=== PATIENT | female | born 1985 | race Caucasian/White ===

== ENCOUNTER → 2017-12-10 15:48 | Outpatient (CLI) | payer BC, SELFPAY | PROVIDERS: Visit Provider Physician Assistant | DX: J02.9 Acute pharyngitis, unspecified (principal) | CPT/HCPCS: 87081 ==

== ENCOUNTER → 2019-03-06 14:29 | Outpatient (CLI) | payer BC, SELFPAY ==
[2019-03-06 11:38] VITALS: BMI 36.1
[2019-03-06 14:32] LABS: Bacteria 0 SEEN /hpf (None Seen); Mucous, Urine 0 SEEN /hpf (<or=2+)
[2019-03-06 14:45] LABS: Glucose, Dipstick Normal (Normal); Ketone-Dipstick 5 mg/dl (Negative); Leukocyte Esterase-Dipstick 500 /ul (Negative); Nitrite-Dipstick Positive (Negative); Occult Blood-Urine 250 /ul (Negative); Protein-Dipstick 30 mg/dl (Negative); Urine Clarity Sl. Cloudy (Clear); Urine Urobilinogen 12 mg/dl (Normal)
[2019-03-06 14:50] LABS: Color, Urine SEE COMMENT BELOW (Yellow); Urine Bilirubin Dipstick 6 mg/dL (Negative)
[2019-03-06 14:52] LABS: Red Blood Cells-Urine > 100 SEEN /hpf (0-5); White Blood Cells 50-100 SEEN /hpf (0-5)
[2019-03-06 14:53] LABS: Squamous Epithelial Cells - UA 5-10 SEEN /hpf (5-10)
== END ==
PROVIDERS: Referring Provider Nurse Practitioner Family; Visit Provider Nurse Practitioner Family
DX: R30.0 Dysuria (principal)
CPT/HCPCS: 81001; 87086; 87088

== ENCOUNTER → 2019-07-03 15:41 | Outpatient (CLI) | payer BC, SELFPAY ==
[2019-03-06 11:38] VITALS: BMI 36.1
--- NOTE | 2019-07-03 15:44 | US_ITS ---
STUDY: THYROID ULTRASOUND REASON FOR EXAM: Female, 34 years old. Abnormal blood work. TECHNIQUE: Ultrasound evaluation of the thyroid was performed with real-time and static modi-scale imaging. COMPARISON: None. FINDINGS: RIGHT LOBE: The right lobe of the thyroid gland measures 4.0 x 1.3 x 1.2 cm. There is a homogeneous echotexture. There are no demonstrated solid, cystic or complex lesions. LEFT LOBE: The left lobe of the thyroid gland measures 4.5 x 1.3 x 2.0 cm. There is a homogeneous echotexture. There are no demonstrated solid, cystic or complex lesions. ISTHMUS: The isthmus measures 0.6 . US/Thyroid IMPRESSION: Normal ultrasound examination of the thyroid. Electronically Signed: Gasper Angulo, at 1:18 EDT Tel , Service support ,
== END ==
PROVIDERS: Family Provider Physician Assistant; PCP Physician Assistant; Referring Provider Nurse Practitioner Adult Health; Visit Provider Nurse Practitioner Adult Health
DX: E04.8 Other specified nontoxic goiter (principal)
CPT/HCPCS: 76536

== ENCOUNTER → 2021-09-22 | Outpatient (CLI) | payer BC, SELFPAY ==
[2021-09-22 10:26] LABS: Bacteria 0 SEEN /hpf (None Seen); Mucous, Urine 0 SEEN /hpf (<or=2+); Red Blood Cells-Urine 0 SEEN /hpf (0-5)
[2021-09-22 10:29] LABS: Color, Urine Amber (Yellow); Glucose, Dipstick Normal (Normal); Ketone-Dipstick Negative (Negative); Leukocyte Esterase-Dipstick 500 /ul (Negative); Nitrite-Dipstick Positive (Negative); Occult Blood-Urine 150 /ul (Negative); Protein-Dipstick 30 mg/dl (Negative); Urine Clarity Sl. Cloudy (Clear); Urine Urobilinogen 8 mg/dl (Normal)
[2021-09-22 10:35] LABS: Urine Bilirubin Dipstick 3 mg/dL (Negative)
[2021-09-22 10:41] LABS: Squamous Epithelial Cells - UA 5-10 SEEN /hpf (5-10); White Blood Cells >100 SEEN /hpf (0-5)
== END | disposition home or self-care (01) ==
PROVIDERS: PCP Physician Assistant; Visit Provider Physician Assistant
DX: N39.0 Urinary tract infection, site not specified (principal)
CPT/HCPCS: 81001; 87086; 87088; 87186

== ENCOUNTER 2021-10-16 15:48 | Outpatient (CLI) | payer BC, SELFPAY ==
[2021-10-24 11:38] LABS: HPV APTIMA, High Risk Negative (Negative)
[2021-10-25 20:39] LABS: HPV Reflexed? YES, CHARGE PATIENT
== END 2021-10-16 23:59 | disposition short-term general hospital (02) ==
LOC: WOBLAB 15:49
PROVIDERS: PCP Physician Assistant; Visit Provider Obstetrics & Gynecology
DX: Z12.4 Encounter for screening for malignant neoplasm of cervix (principal)
CPT/HCPCS: 87624; 88175; G0145

== ENCOUNTER 2021-11-26 14:03 | Outpatient (CLI) | payer BC, SELFPAY ==
--- NOTE | 2021-11-26 12:30 | CER_PTH ---
PATIENT: HIEN SPARKS LOC: [facility] U#:[id number] AGE/SX: 36/F ROOM: RE11/26/[address]: Dr. Patrice Wade MD : 1985 BED: DIS: 11/26/2021 SPEC #: [id number] RECD: 11/26/21 14:32 STATUS: DENA JANI #: [id number] MATTY: 11/26/21 12:[address]: Patrice Wade DEPT: SURGICAL PATHOLOGY RECD BY: Mindi Stoll ENTERED: 11/27/21 07:29 SP TYPE: CERV OTHR DR: CHASIDY Angulo Tissues: A - Uterine cervix, NOS B - Endocervical Procedures: Surgery Specimen Level IV HEADER OPERATION: Colposcopy PRE-OP DIAGNOSIS: LGSIL TISSUE SUBMITTED: A ? Four-quadrant cervical biopsy, B - ECC MICROSCOPIC DIAGNOSIS A. Cervix, four-quadrant biopsy: Negative for dysplasia. B. ECC: Fragments of ecto- and endocervical mucosa with chronic inflammation and squamous metaplasia, blood and mucous. Negative for dysplasia. See comment. MAGDY:[email or web address] 11/28/2021 COMMENT Clinical correlation and appropriate follow up are necessary. MICROSCOPIC DESCRIPTION Slides are reviewed. GROSS DESCRIPTION A - Received in fixative is one container labeled with the patient's name and designated four-quadrant cervical biopsy. The specimen consists of multiple irregular fragments of light hinson soft tissue that in aggregate measure 1 x 0.3 x 0.1 cm. The specimen is totally submitted in one cassette. B - Received in fixative is one container labeled with the patient's name and designated ECC. The specimen consists of multiple fragments of hemorrhagic mucoid tissue that in aggregate measure 1 x 1 x 0.1 cm. The specimen is totally submitted in one cassette. / MAGDY:bibiana 11/27/2021 TC:5 CPT: 39627 x2
== END 2021-11-26 23:59 | disposition home or self-care (01) ==
PROVIDERS: PCP Physician Assistant; Visit Provider Obstetrics & Gynecology
DX: R87.612 Low grade squamous intraepithelial lesion on cytologic smear of cervix (LGSIL) (principal); N87.0 Mild cervical dysplasia
CPT/HCPCS: 88305

== ENCOUNTER → 2022-07-22 | Outpatient (CLI) | payer MEDICAID, SELFPAY | END | disposition home or self-care (01) | LOC: LABSPEC 12:09 | PROVIDERS: PCP Physician Assistant; Visit Provider Student in an Organized Health Care Education/Training Program | DX: N39.0 Urinary tract infection, site not specified (principal) | CPT/HCPCS: 87086; 87088 ==

== ENCOUNTER → 2022-08-21 | Outpatient (CLI) | payer MEDICAID, SELFPAY ==
[2022-08-21 14:27] LABS: Absolute Lymphocyte Count 1.27 X10^3/uL (0.83-4.51); Absolute Neutrophil Count 7.9 X10^3/uL (2.0-7.7); Basophil# 0.02 X10^3/uL; Basophil% 0.2 % (0-1); Eosinophil# 0.07 X10^3/uL; Eosinophils% 0.7 % (0-5); Hematocrit 31.1 % (37-47); Lymphocyte # 1.27 X10^3/ul (0.83-4.51); Lymphocyte % 12.9 % (19-41); Mean Corp Hgb Conc 32.2 g/dL (32-36); Mean Corpuscular Hgb 28.5 pg (27.0-32.0); Mean Corpuscular Volume 88.6 fL (81-99); Mean Platelet Vol. 10.1 fl (6.2-12.0); Monocyte% 5.1 % (0-10); NRBC Flagged by Analyzer 0 % (0-5); Neutrophil # 7.86 X10^3/uL (2.7-7.7); Neutrophil % 80.2 % (47-70); Platelet Count 297 K/mm3 (150-450); RBC Distribution Width CV 13.3 % (11.6-14.6); RBC Distribution Width SD 43.4 fl (35.1-43.9); Red Blood Count 3.51 M/mm3 (4.2-5.4); White Blood Count 9.8 K/mm3 (4.4-11.0)
[2022-08-21 14:58] LABS: ALB/GLOB Ratio 0.6 RATIO (0.9-2.4); AST(SGOT) 29 U/L (15-37); Alanine Aminotransfer ALT/SGPT 34 U/L (13-56); Albumin, Serum 2.7 g/dL (3.2-5.0); Alkaline Phosphatase 102 U/L (45-117); Anion Gap 9 (5-15); BUN 8 mg/dL (7-18); BUN/Creat Ratio 13.3 RATIO (10-20); Calcium,Total 9.7 mg/dL (8.5-10.1); Chloride 105 mmol/L (98-107); EST Glomerular Filtration Rate 118 mL/min (>60); Est Glom Filt Rate - Afr Amer 143 mL/min (>60); Globulin 4.6 g/dL (2.2-4.2); Glucose 129 mg/dL (74-106); Glucose Challenge Gest 1H 50g 129 mg/dL (70-140); Potassium 3.6 mmol/L (3.5-5.1); Protein, Total 7.3 g/dL (6.4-8.2); Sodium Level 137 mmol/L (136-145)
== END | disposition home or self-care (01) ==
LOC: WOBLAB 13:25
PROVIDERS: PCP Physician Assistant; Visit Provider Student in an Organized Health Care Education/Training Program
DX: Z34.83 Encounter for supervision of other normal pregnancy, third trimester (principal)
CPT/HCPCS: 36415; 80053; 82950; 85025; 86850; 86900; 86901

== ENCOUNTER → 2022-10-06 | Outpatient (CLI) | payer MEDICAID, SELFPAY ==
[2022-10-06 15:09] LABS: Absolute Lymphocyte Count 1.27 X10^3/uL (0.83-4.51); Absolute Neutrophil Count 5.6 X10^3/uL (2.0-7.7); Basophil# 0.04 X10^3/uL; Basophil% 0.5 % (0-1); Eosinophil# 0.08 X10^3/uL; Hematocrit 31.7 % (37-47); Hemoglobin 10.1 g/dL (12.0-15.0); Lymphocyte # 1.27 X10^3/ul (0.83-4.51); Lymphocyte % 16.6 % (19-41); Mean Corp Hgb Conc 31.9 g/dL (32-36); Mean Corpuscular Hgb 27.9 pg (27.0-32.0); Mean Corpuscular Volume 87.6 fL (81-99); Mean Platelet Vol. 10.5 fl (6.2-12.0); Monocyte# 0.62 X10^3/uL; Monocyte% 8.1 % (0-10); NRBC Flagged by Analyzer 0 % (0-5); Neutrophil # 5.56 X10^3/uL (2.7-7.7); Neutrophil % 72.8 % (47-70); Platelet Count 251 K/mm3 (150-450); RBC Distribution Width CV 14.1 % (11.6-14.6); RBC Distribution Width SD 44.7 fl (35.1-43.9); Red Blood Count 3.62 M/mm3 (4.2-5.4); White Blood Count 7.7 K/mm3 (4.4-11.0)
[2022-10-06 15:36] LABS: Protein, Urine (Random) 20.4 mg/dL (<11.9); Protein:Creat Ratio 192 mg/g CRE (0-200)
[2022-10-06 15:48] LABS: ALB/GLOB Ratio 0.5 RATIO (0.9-2.4); AST(SGOT) 26 U/L (15-37); Alanine Aminotransfer ALT/SGPT 28 U/L (13-56); Albumin, Serum 2.3 g/dL (3.2-5.0); Alkaline Phosphatase 127 U/L (45-117); Anion Gap 6 (5-15); BUN 7 mg/dL (7-18); BUN/Creat Ratio 13.6 RATIO (10-20); Calcium,Total 8.8 mg/dL (8.5-10.1); Chloride 109 mmol/L (98-107); Creatinine, Serum 0.52 mg/dL (0.55-1.02); EST Glomerular Filtration Rate 142 mL/min (>60); Est Glom Filt Rate - Afr Amer 171 mL/min (>60); Globulin 4.2 g/dL (2.2-4.2); Glucose 86 mg/dL (74-106); LDH 124 U/L (84-246); Potassium 3.8 mmol/L (3.5-5.1); Protein, Total 6.5 g/dL (6.4-8.2); Sodium Level 138 mmol/L (136-145)
[2022-10-06 16:44] LABS: Syphilis Antibodies Non-reactive
[2022-10-09 05:07] LABS: Chlamydia By Nucleic Acid AMP Negative (Negative)
[2022-10-09 17:04] LABS: Gonococcus By Nucleic Acid AMP Negative (Negative)
== END | disposition home or self-care (01) ==
LOC: WOBLAB 14:20
PROVIDERS: PCP Physician Assistant; Visit Provider Student in an Organized Health Care Education/Training Program
DX: Z34.83 Encounter for supervision of other normal pregnancy, third trimester (principal); Z3A.35 35 weeks gestation of pregnancy
CPT/HCPCS: 36415; 80053; 82570; 83615; 84156; 85025; 86780; 87081; 87086; 87088; 87491; 87591

== ENCOUNTER 2022-10-28 12:30 | Inpatient (IN) | payer MEDICAID, SELFPAY ==
[2022-10-28] VITALS (15 sets, daily range): BP systolic 127–151; BP diastolic 46–85; PULSE 74–94; RESP 16–22; TEMP 36.1–36.2; O2SAT 96–100; BMI 39.2
[2022-10-28] MEDS: Lactated Ringers 1,000 ML 999 ML IV (13:30)
[2022-10-28 14:01] LABS: Absolute Lymphocyte Count 1.11 X10^3/uL (0.83-4.51); Absolute Neutrophil Count 4.6 X10^3/uL (2.0-7.7); Basophil# 0.02 X10^3/uL; Basophil% 0.3 % (0-1); Eosinophil# 0.03 X10^3/uL; Eosinophils% 0.5 % (0-5); Hematocrit 32.9 % (37-47); Hemoglobin 10.7 g/dL (12.0-15.0); Lymphocyte # 1.11 X10^3/ul (0.83-4.51); Lymphocyte % 17.7 % (19-41); Mean Corp Hgb Conc 32.5 g/dL (32-36); Mean Corpuscular Volume 86.1 fL (81-99); Mean Platelet Vol. 11.2 fl (6.2-12.0); Monocyte# 0.49 X10^3/uL; Monocyte% 7.8 % (0-10); NRBC Flagged by Analyzer 0 % (0-5); Neutrophil # 4.55 X10^3/uL (2.7-7.7); Neutrophil % 72.6 % (47-70); Platelet Count 213 K/mm3 (150-450); RBC Distribution Width CV 14.8 % (11.6-14.6); RBC Distribution Width SD 46.5 fl (35.1-43.9); Red Blood Count 3.82 M/mm3 (4.2-5.4); White Blood Count 6.3 K/mm3 (4.4-11.0)
[2022-10-28] MEDS: Lactated Ringers 1,000 ML 150 ML IV ×2 (14:30→17:41)
[2022-10-28] MEDS: Acetaminophen 500 MG Tablet 1000 MG PO ×2 (16:50→23:31)
--- NOTE | 2022-10-28 17:42 | PCM.HP.BLA ---
History and Physical Date of Admission: 10/28/22 HPI: 37-year-old G3, P1 at 38/5 weeks, BRIGITTE 11/06/2022 by LMP, admitted for repeat section bilateral salpingectomy. Patient was in the office today and had a BPP of 6 out of 10. Recommended delivery today for equivocal testing. Denies regular contractions, leaking of fluid, vaginal bleeding. Reports movement. Denies headache or vision changes, chest pain or shortness of breath, nausea or vomiting, diarrhea constipation, fevers or chills. complicated by: Nonalcoholic steatosis, chronic hypertension on no meds, advanced maternal age, sarcoidosis, obstructive sleep apnea, resolved low-lying placenta. 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 [place] teeth extraction 2. section Family history: Noncontributory. No history of blood clots or bleeding disorders. Social history: Reports former tobacco use, denies alcohol or drug use Allergies: 1. Egg 2. Latex causes rash 3. Vicodin causes vomiting Medications 1. Pepcid 2. vitamin 3. Sertraline Review of system: Negative other stated above Physical Exam: Temp 97.1 ?F, heart rate 92, blood pressure 137/77, respiratory rate 16, oxygen saturation 98% on room air General: No acute distress HEENT: Normal cephalic/atraumatic, PERRLA Cardiorespiratory: No increased effort Abdomen: Soft, nontender, gravid Extremities: Minimal edema Neurologic: No focal deficits, cranial nerves II through XII grossly intact Musculoskeletal: Strength out of 5 throughout extremities FHR: 150/mod sabas/+accel/no decel [place]: quiet labs A+ Negative hepatitis B Rubella immune Syphilis negative Gonorrhea and chlamydia negative Assessment/Plan: 37-year-old G3, P1 at 38/5 weeks, BRIGITTE 11/06/2022 by LMP, admitted for repeat section bilateral salpingectomy for equivocal testing. complicated by: Nonalcoholic steatosis, chronic hypertension on no meds, advanced maternal age, sarcoidosis, obstructive sleep apnea, resolved low-lying placenta. ?Admit to labor and delivery for repeat section ?Continuous monitoring. status reassuring ?Plan for section and sterilization at 6 PM as patient ate at 930/10 AM. 2 g Ancef preoperatively
[2022-10-28] MEDS: Sodium Citrate/Citric Acid 30 ML UDC PO (17:53)
[2022-10-28] MEDS: Cefazolin 2 GM in 0.9% Normal Saline 100 ML IV (18:15)
--- NOTE | 2022-10-28 18:33 | FALS_PTH ---
PATIENT: HIEN SPARKS LOC: [facility] U#:[id number] AGE/SX: 37/F ROOM: WP010 RE10/28/[address]: Dr. Shilpi Bautista DO : 1985 BED: 1 DIS: 10/30/2022 SPEC #: [id number] RECD: 10/28/22 21:29 STATUS: DENA JANI #: [id number] MATTY: 10/28/22 18:[address]: Shilpi Bautista DEPT: SURGICAL PATHOLOGY RECD BY: Mindi Stoll ENTERED: 10/29/22 11:50 SP TYPE: FALL TUBES OTHR DR: CHASIDY Angulo Tissues: Fallopian tube Procedures: Surgery Specimen Level IV HEADER OPERATION: Tubal ligation PRE-OP DIAGNOSIS: Sterilization TISSUE SUBMITTED: Fallopian tubes, suture in right tube MICROSCOPIC DIAGNOSIS Right fallopian tube, salpingectomy: Complete cross-section of fallopian tube. Benign paratubal cysts. Left fallopian tube, salpingectomy: Complete cross-section of fallopian tube. Benign paratubal cyst. AM:bibiana 10/30/2022 MICROSCOPIC DESCRIPTION Slides are reviewed. GROSS DESCRIPTION Received in fixative is one container labeled with the patient's name and designated bilateral fallopian tubes, right tube with suture. The specimen consists of bilateral fallopian tubes including fimbrial ends. The right fallopian tube measures 7.5 cm in length and 0.5 cm in diameter and left fallopian tube measures 7 cm in length and 0.6 cm in diameter. The right fallopian tube also shows a paratubal cyst adjacent to the fimbrial end measuring 0.6 cm in diameter. The left fallopian also shows a cyst measuring 1 cm in greatest dimension. Sections reveal unremarkable cut surfaces. Senior Production Manager sections are submitted in two cassettes as follows: 1 ? right fallopian tube and paratubal cyst, 2 ? left fallopian tube and paratubal cyst. / SJ:bibiana 10/29/2022 TC:5 CPT: 62454 x2
--- NOTE | 2022-10-28 19:19 | EX.PCM.OBRPT ---
Details Operative Information Date of Procedure: 10/28/22 Pre-Operative Diagnosis: [place] intrauterine , equivocal testing [place] intrauterine , equivocal testing, repeat section, desires sterilization Post-Operative Diagnosis: [place] intrauterine , equivocal testing [place]z intrauterine , equivocal testing, repeat section, desires sterilization Indications Narrative: 37-year-old G3, P1 at 38/5 weeks for repeat section and bilateral salpingectomy for equivocal testing. All risk, benefits, alternatives discussed with the patient. Risk include but are not limited to: Risk of bleeding to the point of transfusion, infection, injury to surrounding tissue including bowel/bladder potentially requiring prolonged Chakraborty catheter use, VTE, ICU admission. Patient aware and consented. Type of Anesthesia: Spinal Estimated Blood Loss: 800cc Fluids Replaced: 950cc Findings Description of Procedure: Procedure: Repeat section, bilateral salpingectomy, lysis of adhesions Patient taken to the operating room and spinal anesthesia placed. Patient placed in the supine position with left lateral tilt. Prepped and draped in the usual sterile fashion. Pfannenstiel skin incision made with scalpel and carried down through subcutaneous tissue. Fascia nicked on either side of midline and extended bilaterally using Jovel scissors. Priscila clamps grasped superior fascial edge was tented up and underlying rectus muscles were dissected off bluntly and sharply at midline using Jovel scissors. Priscila clamps then moved to the inferior fascial edge which was tented up and underlying rectus muscles were dissected off in a similar fashion. Hemostats used to separate rectus muscle superiorly and peritoneum entered bluntly. Adhesion of the anterior uterus to anterior abdominal wall fascia was noted. Bladder blade placed. Low transverse uterine incision made with scalpel and extended bluntly. Hand placed into the uterine cavity and had elevated to the hysterotomy. Bladder blade removed. During head elevation baby was attempting to rotate to a breech position. Unable to keep head in cephalic position. Therefore vacuum was utilized to help deliver head. 2 pop offs. Head delivered followed by body. 3 nuchal cords, loose, reduced. Cord clamped and cut. Baby handed to nursing. Spontaneous delivery of placenta. Uterus cleared of all clots. Bladder blade replaced. Hysterotomy closed with a running locking stitch. Adhesions of the uterus to the anterior abdominal wall fascia were lysed after ensuring there was no bowel attached as well. Lysis of adhesions was completed utilizing LigaSure and Bovie. Uterus was then exteriorized. Right fallopian tube was identified, grasped with Ian clamps. Right fallopian tube was removed along mesosalpinx using the LigaSure. Left fallopian tube was then identified, grasped with Ian clamps. Fallopian tube was removed using LigaSure device along the mesosalpinx. Anterior uterine region where adhesions were lysed was reapproximated using a running stitch. Hemostatic with the stitch and Bovie. Second imbricating stitch placed along the hysterotomy closure. Hemostatic. Uterus replaced into the abdominal cavity. Closures were noted to be hemostatic as were mesosalpinx. Aldo placed along the hysterotomy and adhesions closure. Peritoneum closed in a running stitch. Fascia closed with running stitch. Subcutaneous tissue reapproximated with suture. Skin closed with a running subcuticular stitch. At the end of the procedure all needle, lap, sponge counts were correct x3. UOP: 300cc clear urine Infant A Gender: Male (1 minute): 8 (5 minute): 9 Complications Complications: None
[2022-10-28] MEDS: Oxytocin 15 Units/NS 250ml 15 UNITS/250 ML IV.SOLN 83 UNITS IV (19:45)
[2022-10-28] MEDS: Ketorolac 30 MG/ML Syringe IV (20:07)
[2022-10-28 21:31] LABS: Pathology Specimen OB SEE PATHOLOGY REPORT
[2022-10-28] MEDS: Lactated Ringers 1,000 ML 100 ML IV (23:29)
[2022-10-28] MEDS: Sertraline 100 MG Tablet PO (23:34)
[2022-10-29] VITALS (8 sets, daily range): BP systolic 113–151; BP diastolic 45–73; PULSE 58–100; RESP 16–18; TEMP 36.2–36.6; O2SAT 95–99
[2022-10-29] MEDS: Ketorolac 30 MG/ML Syringe IV ×3 (02:25→14:33)
--- NOTE | 2022-10-29 02:52 | PCM.PN.OB ---
Subjective Subjective No overnight complaints Objective Data Objective Data Vital Signs: Vital Signs Temp Pulse Resp BP Pulse Ox O2 Del Method 97 F L 72 18 121/45 H 99 Room Air 10/28/22 21:58 10/29/22 02:41 10/29/22 02:41 10/29/22 02:41 10/29/22 02:41 10/29/22 02:41 Oxygen Delivery Method Room Air Weight: 211 lb Body Mass Index (BMI) 39.2 Intake & Output: Intake and Output for Last 24 Hours 10/27/22 10/28/22 10/29/22 23:59 23:59 23:59 Intake Total 3307.5 / 3307.5 Output Total 1250 / 1250 150 / 150 Balance 2057.5 / 2057.5 -150 / -150 Lab / Micro Data Result Diagrams: 10/28/22 13:32 Labs: Laboratory Results - last 24 hr 10/28/22 13:32: WBC 6.3, RBC 3.82 L, Hgb 10.7 L, Hct 32.9 L, MCV 86.1, MCH 28.0, MCHC 32.5, RDW Std Deviation 46.5 H, RDW Coeff of Duc 14.8 H, Plt Count 213, MPV 11.2, Immature Gran % (Auto) 1.100 H, Neut % (Auto) 72.6 H, Lymph % (Auto) 17.7 L, Boundary % (Auto) 7.8, Eos % (Auto) 0.5, Baso % (Auto) 0.3, Absolute Neuts (auto) 4.6, Absolute Lymphs (auto) 1.11, Nucleated RBC % 0 10/28/22 13:32: Blood Type A POSITIVE, Antibody Screen NEGATIVE Physical Exam Const alert, oriented x3, no apparent distress, average body habitus, healthy appearing and well nourished HEENT normocephalic and moist oral mucous membranes Eyes PERRL Neck full ROM Resp normal respiratory effort and no retractions GI GI Narrative: Soft, nontender, bandage clean dry and intact Extremity normal to inspection and full ROM Neuro moves all extremities and no focal motor deficits Psych mental status grossly normal, affect normal, speech normal and activity/motor behavior normal Assessment & Plan (1) delivery delivered: PLAN: Postop day 1 status post section bilateral tubal ligation. Pain well controlled. Likely discharge home tomorrow
[2022-10-29 05:15] LABS: Hematocrit 27.4 % (37-47); Hemoglobin 8.8 g/dL (12.0-15.0); Mean Corp Hgb Conc 32.1 g/dL (32-36); Mean Corpuscular Hgb 28.3 pg (27.0-32.0); Mean Corpuscular Volume 88.1 fL (81-99); Mean Platelet Vol. 10.6 fl (6.2-12.0); Platelet Count 192 K/mm3 (150-450); RBC Distribution Width CV 14.6 % (11.6-14.6); RBC Distribution Width SD 46.2 fl (35.1-43.9); Red Blood Count 3.11 M/mm3 (4.2-5.4); White Blood Count 10.8 K/mm3 (4.4-11.0)
[2022-10-29] MEDS: Acetaminophen 500 MG Tablet 1000 MG PO ×4 (05:21→23:35)
[2022-10-29] MEDS: 0.9% Saline Lock 10 ML Syringe IV ×2 (08:49→14:34)
[2022-10-29] MEDS: Enoxaparin 40 MG/0.4 ML Syringe SC (09:53)
[2022-10-29] MEDS: Senna/Docusate Sodium 1 Tablet PO (09:53)
[2022-10-29] MEDS: FLU VACC QS2022-23(6MOS UP)/PF 60 MCG/0.5 ML SYRINGE IM (09:56)
--- NOTE | 2022-10-29 10:01 | NURSING ---
Bladder is mildly distended. Patient has not attempted to void since easton was discontinued at 6:20 this morning. Encouraged patient to get up to the bathroom to attempt to void at this time. Patient is comfortable and does not have a full bladder sensation.
--- NOTE | 2022-10-29 13:37 | NURSING ---
This advanced nursing professor reviewed the documentation completed by Javi, student nurse.
[2022-10-29] MEDS: Ibuprofen 600 MG Tablet PO (20:20)
[2022-10-29] MEDS: Sertraline 100 MG Tablet PO (22:00)
--- NOTE | 2022-10-29 22:52 | NURSING ---
RN notes pt states she is not allergic to acetaminophen and has no reactions when she takes it.
[2022-10-30 02:21] VITALS: BP 142/64; PULSE 73; RESP 16; TEMP 36.6; O2SAT 95
[2022-10-30] MEDS: Ibuprofen 600 MG Tablet PO ×2 (02:24→07:56)
[2022-10-30] MEDS: Acetaminophen 500 MG Tablet 1000 MG PO ×2 (05:36→10:55)
--- NOTE | 2022-10-30 07:06 | PCM.PN.OB ---
Subjective Subjective Feeling well this morning. Sore but pain controlled. Breast-feeding. Lochia minimal. Objective Data Objective Data Vital Signs: Vital Signs Temp Pulse Resp BP Pulse Ox O2 Del Method 97.9 F 73 16 142/64 H 95 Room Air 10/30/22 02:21 10/30/22 02:21 10/30/22 02:21 10/30/22 02:21 10/30/22 02:21 10/30/22 02:21 Oxygen Delivery Method Room Air Weight: 95.708 kg Body Mass Index (BMI) 39.2 Intake & Output: Intake and Output for Last 24 Hours 10/28/22 10/29/22 10/30/22 23:59 23:59 23:59 Intake Total 3307.5 / 3307.5 Output Total 1250 / 1250 1200 / 1200 Balance 2057.5 / 2057.5 -1200 / -1200 Lab / Micro Data Attestation: I reviewed the patient's lab results. Result Diagrams: 10/29/22 05:10 Physical Exam Const alert, oriented x3 and no apparent distress HEENT normocephalic Head and Scalp: atraumatic Neck full ROM Resp normal respiratory effort Cardio regular rate GI normal to inspection, nondistended, normoactive bowel sounds GI Narrative: Uterus 2 cm below umbilicus, dressing clean and dry Back/Spine normal ROM Extremity normal to inspection Extremity Narrative: Minimal pedal edema Neuro no focal motor deficits and no sensory deficits noted Psych mental status grossly normal and affect normal Assessment & Plan (1) delivery delivered: PLAN: Postop day 2 status post repeat section bilateral salpingectomy. Acute on chronic anemia secondary to surgery. Iron supplement on home-going. Breast-feeding. Discharge home today. (2) Acute postoperative pain:
--- NOTE | 2022-10-30 07:07 | DCINST_ITS ---
Discharge Instructions Diet Discharge Diet: No restrictions Activity Discharge Activity: Return to Normal Activity and May Shower May resume sexual activity in: 4-6 weeks Weight Bearing Status: Weight bearing as tolerated Lifting Restrictions: No greater than 25 pounds Dressing / Incision Call your doctor if your incision/area has: Continuous Slow Oozing, Increased Redness and Swelling at the incision site Call your doctor if you observe: Fever of 101 or Higher, Change in Color, Inability to urinate, Using more than 1 pad per hour, Shortness of breath, Dizziness, Swelling in the ankles, Chest pain and Calf discomfort Remove Dressing in: 1 week Cleanse incision/area with: Soap & Water and Keep Dressing Clean & Dry Follow Up Care Please Follow Up With: Shilpi Bautista DO When: 2-week and 6-week visit Test Results: Test results from this visit will be discussed in further detail at your follow- up appointment, if applicable. Discharge Plan Admission Admit Date/Time: 10/28/22 12:30 Primary Reason for Your Visit: section and tubal ligation Attending Provider: Shilpi Bautista Primary Care Provider: Alison Alexander Discharge Orders/Prescriptions Prescriptions: New oxycodone 5 mg Tablet 5 mg PO Q6H PRN PRN (Reason: Pain Score 7-10) 4 Days Qty: 20 0RF Continued famotidine [Pepcid AC] 10 mg Tablet 10 mg PO BID sertraline [Zoloft] 100 mg Tablet 100 mg PO DAILY [id number] 1 mg Tablet 1 tab PO DAILY Referrals / Follow Up: Alison Alexander PA [Primary Care Provider] - Disposition Disposition (needs filled in before D/C Order can be placed): Home, Self Care
[2022-10-30] MEDS: Enoxaparin 40 MG/0.4 ML Syringe SC (07:56)
[2022-10-30] MEDS: Senna/Docusate Sodium 1 Tablet PO (07:56)
[2022-10-30 08:00] VITALS: BP 146/69; PULSE 72; RESP 20; TEMP 36.5
== END 2022-10-30 13:40 | disposition home or self-care (01) | DRG 539 ==
PROVIDERS: Admitting Provider Student in an Organized Health Care Education/Training Program; PCP Physician Assistant; Referring Provider Student in an Organized Health Care Education/Training Program; Visit Provider Student in an Organized Health Care Education/Training Program
DX: O34.219 Maternal care for unspecified type scar from previous cesarean delivery (principal); O10.92 Unspecified pre-existing hypertension complicating childbirth; D86.9 Sarcoidosis, unspecified; O99.12 Other diseases of the blood and blood-forming organs and certain disorders involving the immune mechanism complicating childbirth; Z37.0 Single live birth; Z30.2 Encounter for sterilization; O69.81X0 Labor and delivery complicated by cord around neck, without compression, not applicable or unspecified; Z3A.38 38 weeks gestation of pregnancy; Z79.899 Other long term (current) drug therapy; Z87.891 Personal history of nicotine dependence
CPT/HCPCS: 59025; 59050; 85025; 85027; 86850; 86900; 86901; 88302; 88305; 99221; J7120; 90686; A4216; G0378

== ENCOUNTER → 2023-06-18 | Outpatient (CLI) | payer MEDICAID, SELFPAY ==
[2023-06-23 11:09] LABS: HPV APTIMA, High Risk Negative (Negative)
== END | disposition home or self-care (01) ==
LOC: WOBLAB 10:03
PROVIDERS: PCP Physician Assistant; Visit Provider Student in an Organized Health Care Education/Training Program
DX: Z01.419 Encounter for gynecological examination (general) (routine) without abnormal findings (principal)
CPT/HCPCS: 87624; 88175; G0145

== ENCOUNTER 2025-07-13 05:23 | Emergency (ER) | payer OTHER, SELFPAY ==
[2025-07-13 05:23] VITALS: BP 149/84; PULSE 101; RESP 18; TEMP 36.6; O2SAT 96; BMI 38.9
[2025-07-13] MEDS: 0.9% Normal Saline (1000mL) 1,000 ML 999 ML IV (06:20)
--- OUTSIDE RECORDS SUMMARY | 2025-07-13 06:20 | XMS RPT_ITS | CCD ---
Author Organization [facility] Care Team Providers Care Inspector Aluminum Boat Name Role Phone ALEXANDER, ALISON J Primary Care Unavailable ALEXANDER, ALISON J Attending Unavailable ALEXANDER, ALISON J Admitting Unavailable VACCARIELLO, JUANY Consulting Unavailable PROVIDER, UNKNOWN Consulting Unavailable PROVIDER, UNKNOWN Consulting Unavailable PROVIDER, UNKNOWN Consulting Unavailable ALEXANDER, ALISON J Primary Care Unavailable ALEXANDER, ALISON J Attending Unavailable ALEXANDER, ALISON J Admitting Unavailable VACCARIELLO, JUANY Consulting Unavailable PROVIDER, UNKNOWN Consulting Unavailable PROVIDER, UNKNOWN Consulting Unavailable PROVIDER, UNKNOWN Consulting Unavailable ALEXANDER, ALISON J Admitting Unavailable ALEXANDER, ALISON J Primary Care Unavailable ALEXANDER, ALISON J Attending Unavailable VACCARIELLO, JUANY Consulting Unavailable PROVIDER, UNKNOWN Consulting Unavailable PROVIDER, UNKNOWN Consulting Unavailable PROVIDER, UNKNOWN Consulting Unavailable JIM BLACK Attending Unavailable ROSEJIM GOULD Admitting Unavailable ROSEJIM Primary Care Unavailable VACCARIELLO, JUANY Consulting Unavailable VACCARIELLO, JUANY Referring Unavailable PROVIDER, UNKNOWN Consulting Unavailable PROVIDER, UNKNOWN Consulting Unavailable PROVIDER, UNKNOWN Consulting Unavailable Yudith Najera NP Attending Unavailable Alexander PA, Alison Primary Care Unavailable Alexander PA, Alison Referring Unavailable Bautista Shilpi Admitting Unavailable Bautista, Shilpi Attending Unavailable Bautista, Shilpi Referring Unavailable Alexander PA, Alison Primary Care Unavailable Bautista, Shilpi Attending Unavailable Alexander PA, Alison Primary Care Unavailable Bautista, Shilpi Attending Unavailable Alexander PA, Alison Primary Care Unavailable Bautista, Shilpi Attending Unavailable Alexander PA, Alison Primary Care Unavailable Bautista, Shilpi Attending Unavailable Alexander PA, Alison Primary Care Unavailable Alexander PA-C, Alison J Unavailable Alexander PA-C, Alison J Unavailable Rheumatolgy Provider Unavailable Unavailable Endocrinology Provider Unavailable Unavailab le Nephrology Provider Unavailable Unavailable Physical Boris Flowers Unavailable Gabi GREENE, Dr. Zhou Childs Unavailable Finley general helper, . . Unavailable Sabra GREENE, Dalia Torrez Unavailable Stefan TELETYPE OR VARITYPE KEYBOARD OPERATOR, Alyssa Unavailable John DEL CASTILLO, Geeta Yost Unavailable Ted GREENE, Balta Watson Unavailable Js TELETYPE OR VARITYPE KEYBOARD OPERATOR, Christina Torrez Unavailable Unavailable Audrey VALERIO, Amaya Unavailable Unavailable Gogolluvia (scribe), Hemanta Unavailable Unavaila ble Pathak TELETYPE OR VARITYPE KEYBOARD OPERATOR, Lesly Unavailable Unavailable Baltazar GREENE, Nghia Tabares Unavailable Maged DEL CASTILLO, Stacie George Unavailable Zita TELETYPE OR VARITYPE KEYBOARD OPERATOR, Ayde Unavailable Unavaila ble Kieran TELETYPE OR VARITYPE KEYBOARD OPERATOR, Nereyda Unavailable Unavailable Law RN, Stacie Tabares Unavailable Unavaila ble Marthecarolann TELETYPE OR VARITYPE KEYBOARD OPERATOR, Sissy Unavailable Unavailable Braxton RIVERA, Mckenna Y Unavailable Unavailable Riaz (Scribe), Tristan Unavailable Unavailab le Justine TELETYPE OR VARITYPE KEYBOARD OPERATOR, Dalia M Unavailable Unavailab le [place] TELETYPE OR VARITYPE KEYBOARD OPERATOR, Bianca Chris Unavailable Unavailab amy Colon MA, Nereyda Unavailable Unavailable Georgetain CNM, Crystal K Unavailable Jigna GREENE, Juany Tabares Unavailable [phone] Vess TELETYPE OR VARITYPE KEYBOARD OPERATOR, Neilee L Unavailable Unavailable Wengerd TELETYPE OR VARITYPE KEYBOARD OPERATOR, Mariola Unavailable Unavailabl e Zaugg TELETYPE OR VARITYPE KEYBOARD OPERATOR, Carly Unavailable Unavailable Unavailable Unavailable Sridhar VALERIO, Nga Unavailable Unavailable Rufino TELETYPE OR VARITYPE KEYBOARD OPERATOR, Rosaura Unavailable Unavailabl e Radha, Esther Unavailable Unavailable Radha CCMA, Esther Unavailable Unavailable Supa TELETYPE OR VARITYPE KEYBOARD OPERATOR, Shahram Unavailable Unavailable Allergies Allergy Classification Reported Allergen(s) Allergy Type Date of Onset Reaction(s) Facility (4 sources) Acetaminophen Drug Allergy 1 Unknown, Vomiting [facility] (4 sources) egg extract Drug Allergy 2 NEEDS FOLLOW-UP, Other [facility] (4 sources) HYDROcodone Drug Allergy 1 Unknown, Vomiting [facility] (5 sources) Latex; Translations: [LATEX] Allergy to substance 1 Unknown, Rash [facility] (1 source) Acetaminophen / HYDROcodone Drug Allergy [facility] (1 source) Acetaminophen Drug Allergy 3 [facility] (1 source) Egg; Translations: [eggs] Propensity to adverse reactions (disorder) 8 [facility] (1 source) egg extract Drug Allergy 3 [facility] (1 source) HYDROcodone Drug Allergy 3 [facility] (1 source) Latex Drug allergy (disorder) 3 [facility] (18 sources) Acetaminophen / HYDROcodone Drug Allergy [facility] (18 sources) egg [facility] (1 source[facility] (1 source) [facility] (1 source) [facility] (1 source) [facility] (1 source[facility] (1 source) [facility] (1 source[facility] (1 source) [facility] (1 source) [facility] (1 source) [facility] (1 source) [facility] (1 source) [facility] (1 source) [facility] (1 source[facility] (1 source[facility] (1 source[facility] (1 source) [facility] (1 source) [facility] (1 source) [facility] (1 source) [facility] (1 source[facility] (1 source) [facility] (1 source) [facility] (1 source) [facility] (1 source) [facility] (1 source[facility] (1 source[facility] (1 source) [facility] (1 source[facility] (1 source) [facility] (1 source) [facility] (1 source) [facility] (1 source) [facility] (1 source) [facility] (1 source) [facility] (1 source) [facility] Medications Current Medications Medication Drug Class(es) Dates Sig (Normalized) Sig (Original) famotidine 10 mg oral tablet (19 sources) Histamine-2 Receptor Antagonist Start: 10-28-2022 take 1 tablet by mouth twice daily before mealtime Famotidine (Pepcid Ac) 10 mg Tablet Active 10 MG PO TWICE A DAY October 28, 2022 1:00am Start: 04-20-2022 End: 06-03-2023 ketoconazole 20 mg/ml topical cream (10 sources) Azole Antifungal Start: 09-14-2024 methotrexate 2.5 mg oral tablet (3 sources) Folate Analog Metabolic Inhibitor Start: 09-22-2021 take 2.5 mg by mouth every week Methotrexate Sodium Active 2.5 MG PO EVERY WEEK September 22, 2021 12:00am oxyCODONE hydrochloride 5 mg oral tablet (1 source) Opioid Agonist Start: 10-29-2022 take 5 mg by mouth every six hours as needed Oxycodone Active 5 MG PO EVERY 6 HOURS NEEDED 20 4 October 29, 2022 [id number] (1 source) Start: 10-28-2022 take 1 tablet by mouth once daily Dfpoxxix-Zaj-Dw-Fa Active 1 TABLET PO DAILY October 28, 2022 1:00am sertraline 50 mg oral tablet (19 sources) Serotonin Reuptake Inhibitor Start: 12-04-2024 Start: 06-02-2024 Start: 02-09-2024 End: 05-09-2024 Start: 01-26-2024 Start: 10-28-2022 take 1 tablet by cherie th once daily Sertraline (Zoloft) 100 mg Tablet Active 100 MG PO DAILY October 28, 2022 1:00am Completed/Discontinued Medications Medication Drug Class(es) Dates Sig (Normalized) Sig (Original) acetaminophen 325 mg / HYDROcodone bitartrate 5 mg oral tablet (18 sources) Opioid Agonist Start: 08-06-2011 End: 08-19-2011 acyclovir 400 mg oral tablet (18 sources) Herpesvirus Nucleoside Analog DNA Polymerase Inhibitor, Herpes Simplex Virus Nucleoside Analog DNA Polymerase Inhibitor, Herpes Zoster Virus Nucleoside Analog DNA Polymerase Inhibitor Start: 05-07-2022 End: 05-17-2022 [id number] 200 actuat albuterol 0.09 mg/actuat metered dose inhaler (18 sources) beta2-Adrenergic Agonist Start: 06-09-2017 End: 11-09-2018 amoxicillin 500 mg oral tablet (18 sources) Penicillin-class Antibacterial Start: 01-09-2019 End: 01-19-2019 amoxicillin 875 mg / clavulanate 125 mg oral tablet (20 sources) Penicillin-class Antibacterial Start: 10-18-2019 End: 10-28-2019 Start: 07-31-2013 End: 08-10-2013 azithromycin 500 mg oral tab let (18 sources) Macrolide Antimicrobial Start: 06-03-2017 End: 06-06-2017 cephalexin 500 mg oral capsu le (20 sources) Cephalosporin Antibacterial Start: 09-14-2024 End: 09-21-2024 Start: 05-30-2020 End: 06-06-2020 Start: 06-15-2012 End: 06-25-2012 cetirizine hydrochloride 10 mg oral capsule (18 sources) Histamine-1 Receptor Antagonist cyclobenzaprine hydrochlorid e 10 mg oral tablet (18 sources) Muscle Relaxant Start: 12-23-2015 End: 02-13-2016 Daily Multi-Vitamin (18 sources) escitalopram 20 mg oral tabl et (20 sources) Serotonin Reuptake Inhibitor Start: 05-26-2021 End: 02-26-2022 Start: 09-02-2020 ferrous sulfate 325 mg oral tablet (18 sources) fluticasone propionate 0.05 mg/actuat metered dose nasal spray (18 sources) Corticosteroid Start: 04-23-2021 End: 09-14-2024 Start: 04-23-2021 hydroCHLOROthiazide 25 mg oral tablet (18 sources) Thiazide Diuretic Start: 04-08-2020 End: 02-06-2021 hydrocortisone acetate 25 mg rectal suppository (18 sources) Corticosteroid Start: 01-21-2015 End: 01-28-2015 levonorgestrel 0.603382 mg/hr intrauterine system (18 sources) Progestin, Progestin-containi ng Intrauterine Device loratadine 10 mg oral tablet (18 sources) methylPREDNISolone (18 sources) Corticosteroid Start: 04-08-2020 End: 04-22-2020 metroNIDAZOLE 500 mg oral tablet (18 sources) Nitroimidazole Antimicrobial Start: 08-22-2014 End: 11-23-2014 mupirocin 20 mg/ml topical cream (18 sources) RNA Synthetase Inhibitor Antibacterial Start: 02-13-2016 End: 02-20-2016 nitrofurantoin, macrocrystals 25 mg / nitrofurantoin, monohydrate 75 mg oral capsule (20 sources) Nitrofuran Antibacterial Start: 09-22-2021 End: 09-27-2021 take 1 capsule by mouth every twelve hours at mealtime Nitrofurantoin Monohyd/M-Cryst (Macrobid) 100 mg capsule Discontinued 100 MG PO Q12H 10 5 September 22, 2021 1:00am September 27, 2021 1:01am must administer with a meal/food Start: 03-06-2019 End: 09-22-2021 take 1 capsule by mouth twice daily at mealtime Nitrofurantoin Monohyd/M-Cryst (Macrobid) 100 mg capsule Discontinued 100 MG PO TWICE A DAY March 06, 2019 12:00am September 22, 2021 8:00am must administer with a meal/food Start: 07-10-2010 End: 07-17-2010 ondansetron 8 mg disintegrating oral tablet (18 sources) Serotonin-3 Receptor Antagonist Start: 03-30-2022 End: 06-03-2023 One Daily Multivitamin (18 sources) PARoxetine hydrochloride 10 mg oral tablet (20 sources) Serotonin Reuptake Inhibitor Start: 12-09-2017 End: 03-06-2019 take 1 tablet by mouth once daily in the morning Paroxetine Hcl (Paxil) 10 mg tablet Discontinued 10 MG PO EVERY MORNING December 09, 2017 1:00am March 06, 2019 11:26am Start: 07-22-2017 End: 11-09-2018 permethrin 50 mg/ml topical cream (4 sources) Pyrethroid Start: 06-14-2018 End: 03-06-2019 Permethrin Discontinued 1 APPLIC TOPICAL ONCE 60 June 14, 2018 12:00am March 06, 2019 11:26am leave on for 8 to14 hrs before washing off Potassium Chloride (18 sources) End: 02-21-2021 predniSONE 20 mg oral tablet (20 sources) Start: 05-27-2020 End: 08-22-2020 Start: 06-06-2018 End: 06-18-2018 Prednisone Discontinued 10 M G PO daily 30 June 06, 2018 12:00am June 18, 2018 12:12am Take 4 tabs once daily days 1-3 3 tabs once daily days 4-6 2 tabs once daily days 7-9 and 1 tab once daily days 10-12. Start: 06-09-2017 End: 2017 sulfamethoxazole 800 mg / trimethoprim 160 mg oral tablet (20 sources) Dihydrofolate Reductase Inhibitor Antibacterial, Sulfonamide Antimicrobial Start: 05-06-2020 End: 05-09-2020 Start: 02-16-2018 End: 02-23-2018 take 1 tablet by mouth twice daily Sulfamethoxazole-Trimethoprim Discontinu ed 1 TABLET PO TWICE A DAY 14 February 16, 2018 12:00am February 23, 2018 12:05am triamcinolone acetonide 1 mg /ml topical cream (18 sources) Corticosteroid End: 08-11-2010 valACYclovir 1000 mg oral tablet (10 sources) Herpesvirus Nucleoside Analog DNA Polymerase Inhibitor, Herpes Simplex Virus Nucleoside Analog DNA Polymerase Inhibitor, Herpes Zoster Virus Nucleoside Analog DNA Polymerase Inhibitor Start: 09-14-2024 End: 09-21-2024 Problems Active Problems Problem Classification Problem Date Documented Da te Episodic/Chronic Abdominal pain (20 sources) Abdominal pain; Translations: [Unspecified abdominal pain] 02-26-2022 Episodic Acute bronchitis (20 sources) Acute bronchitis; Translations: [Acute bronchitis, unspecified] 03-25-2021 Episodic Allergic reactions (4 sources) Irritant contact dermatitis; Translations: [Irritant contact dermatitis, unspecified cause] 06-06-2018 Episodic Coma; stupor; and brain damage (20 sources) Daytime somnolence; Translations: [Somnolence] 02-26-2022 Episodic Contraceptive and procreative management (20 sources) Patient encounter status; Translations: [Encounter for removal of intrauterine contraceptive device] 02-26-2022 Episodic Diabetes mellitus without complication (14 sources) Hyperglycemia; Translations: [Hyperglycemia, unspecified] 03-22-2025 Episodic Esophageal disorders (20 sources) Gastroesophageal reflux disease; Translations: [Gastro-esophageal reflux disease without esophagitis] 05-28-2023 Chronic Essential hypertension (20 sources) Hypertensive disorder; Translations: [Essential (primary) hypertension] 06-03-2023 Chronic Genitourinary symptoms and ill-defined conditions (20 sources) Dysuria; Translations: [Dysuria] 09-22-2021 Episodic Heart valve disorders (20 sources) Heart murmur; Translations: [Cardiac murmur, unspecified] 05-28-2023 Episodic Hypertension complicating ; childbirth and the puerperium (20 sources) Pre-existing hypertension in obstetric context; Translations: [Pre-existing hypertension with pre-eclampsia, first trimester] 06-03-2023 Chronic Immunity disorders (20 sources) Sarcoidosis; Translations: [Sarcoidosis, unspecified] 06-03-2023 Chronic Immunizations and screening for infectious disease (20 sources) Needs influenza immunization; Translations: [Encounter for immunization] 03-25-2021 Episodic Inflammatory diseases of female pelvic organs (20 sources) Bacterial vaginosis; Translations: [Acute vaginitis] 03-25-2021 Episodic Malaise and fatigue (20 sources) Fatigue; Translations: [Other fatigue] 05-28-2023 Episodic Menstrual disorders (20 sources) Disorder of menstruation; Translations: [Irregular menstruation, unspecified] 02-26-2022 Chronic Mood disorders (20 sources) Depressive disorder; Translations: [Depressive disorder, not elsewhere classified] 06-03-2023 Chronic Nonmalignant breast conditions (20 sources) Breast lump; Translations: [Unspecified lump in unspecified breast] 06-09-2023 Episodic Nutritional deficiencies (20 sources) Vitamin D deficiency; Translations: [Vitamin D deficiency, unspecified] 06-03-2023 Chronic Other aftercare (20 sources) Drug indicated; Translations: [Other group home (current) drug therapy] 03-25-2021 Episodic Other aftercare (8 sources) Removal of sutures done; Translations: [Encounter for removal of sutures] 05-02-2025 Episodic Other circulatory disease (20 sources) H/O: hypertension; Translations: [Personal history of other diseases of the circulatory system] 06-03-2023 Episodic Other complications of ; puerperium affecting management of mother (1 source) Deliveries by ; Translations: [Encounter for delivery without indication] 10-29-2022 Episodic Other complications of ; puerperium affecting management of mother (20 sources) Lesion of nipple; Translations: [Other disorders of breast associated with and the puerperium] 06-03-2023 Episodic Other complications of ; puerperium affecting management of mother (20 sources) delivery, without mention of indication, unspecified as to episode of care or not applicable 03-25-2021 Episodic Other complications of (20 sources) High risk ; Translations: [Supervision of high risk , unspecified, unspecified trimester] 06-03-2023 Episodic Other complications of (4 sources) Nausea and vomiting; Translations: [Vomiting of , unspecified] 05-28-2023 Episodic Other complications of (20 sources) Vomiting of , unspecified; Translations: [Unspecified vomiting of , unspecified as to episode of care or not applicable] 05-28-2023 Episodic Other connective tissue disease (20 sources) Radial styloid tenosynovitis 03-25-2021 Episodic Other connective tissue disease (20 sources) Swelling of lower limb; Translations: [Other specified soft tissue disorders] 02-26-2022 Episodic Other connective tissue disease (20 sources) Muscle pain; Translations: [Myalgia, unspecified site] 02-26-2022 Episodic Other connective tissue disease (20 sources) Plantar fasciitis of right foot; Translations: [Plantar fascial fibromatosis] 02-26-2022 Episodic Other connective tissue disease (20 sources) Soft tissue lesion of shoulder region; Translations: [Other specified soft tissue disorders] 03-25-2021 Episodic Other female genital disorders (20 sources) Lesion of vulva; Translations: [Other specified noninflammatory disorders of vulva and perineum] 05-28-2023 Episodic Other gastrointestinal disorders (20 sources) H/O: liver disease; Translations: [Personal history of other diseases of the digestive system] 06-03-2023 Episodic Other gastrointestinal disorders (20 sources) Umbilical discharge; Translations: [Other specified symptoms and signs involving the digestive system and abdomen] 03-25-2021 Episodic Other infections; including parasitic (4 sources) Infestation by Sarcoptes scabiei sabas hominis; Translations: [Scabies] 06-14-2018 Episodic Other liver diseases (20 sources) Steatosis of liver; Translations: [Fatty (change of) liver, not elsewhere classified] 06-03-2023 Chronic Other lower respiratory disease (20 sources) Snoring; Translations: [Snoring] 02-26-2022 Episodic Other nervous system disorders (1 source) Acute postoperative pain; Translations: [Other acute postprocedural pain] 10-29-2022 Episodic Other non-traumatic joint disorders (20 sources) Multiple joint pain; Translations: [Pain in unspecified joint] 02-26-2022 Episodic Other non-traumatic joint disorders (20 sources) Ankle pain; Translations: [Pain in right ankle and joints of right foot] 03-25-2021 Episodic Other nutritional; endocrine; and metabolic disorders (20 sources) Body mass index 30+ - obesity; Translations: [Body mass index (BMI) 37.0-37.9, adult] 03-25-2021 Chronic Other nutritional; endocrine; and metabolic disorders (20 sources) Obese class I; Translations: [Obesity, unspecified] 03-25-2021 Chronic Other nutritional; endocrine; and metabolic disorders (20 sources) Morbid obesity; Translations: [Morbid (severe) obesity due to excess calories] 05-24-2024 Chronic Other and delivery including normal (20 sources) Encounter for supervision of other normal , third trimester; Translations: [Normal ] Onset: 3 05-28-2023 Episodic Other screening for suspected conditions (not mental disorders or infectious disease) (20 sources) Full blood count abnormal; Translations: [Other specified abnormal findings of blood chemistry] 03-25-2021 Episodic Other skin disorders (20 sources) Change in skin lesion; Translations: [Disorder of the skin and subcutaneous tissue, unspecified] 03-25-2021 Episodic Other skin disorders (20 sources) Sebaceous cyst of skin; Translations: [Sebaceous cyst] 03-25-2021 Episodic Other skin disorders (20 sources) Sebaceous cyst 03-25-2021 Episodic Other skin disorders (20 sources) Eruption; Translations: [Rash and other nonspecific skin eruption] 09-14-2024 Episodic Other skin disorders (20 sources) Epidermoid cyst of skin of scalp; Translations: [Epidermal cyst] 03-22-2025 Episodic Other upper respiratory disease (20 sources) Bleeding from nose; Translations: [Epistaxis] 03-25-2021 Episodic Other upper respiratory disease (20 sources) Nasal congestion; Translations: [Nasal congestion] 02-26-2022 Episodic Other upper respiratory infections (20 sources) Sinusitis; Translations: [Chronic sinusitis, unspecified] 03-25-2021 Chronic Other upper respiratory infections (20 sources) Upper respiratory infection; Translations: [Acute upper respiratory infection, unspecified] 02-16-2018 Episodic Otitis media and related conditions (20 sources) Acute suppurative otitis media; Translations: [Acute suppurative otitis media without spontaneous rupture of ear drum, unspecified ear] 03-25-2021 Episodic Pneumonia (except that caused by tuberculosis or sexually transmitted disease) (20 sources) Left lower zone pneumonia; Translations: [Pneumonia, unspecified organism] 03-25-2021 Episodic Residual codes; unclassified (20 sources) Obstructive sleep apnea syndrome; Translations: [Obstructive sleep apnea (adult) (pediatric)] 06-03-2023 Chronic Residual codes; unclassified (20 sources) Gestation period, 8 weeks; Translations: [8 weeks gestation of ] 05-28-2023 Episodic Residual codes; unclassified (20 sources) Failed attempted procedure; Translations: [Procedure and treatment not carried out for other reasons] 02-26-2022 Episodic Residual codes; unclassified (20 sources) Failed insertion; Translations: [Procedure and treatment not carried out for other reasons] 02-26-2022 Episodic Spondylosis; intervertebral disc disorders; other back problems (20 sources) Backache; Translations: [Dorsalgia, unspecified] 03-25-2021 Episodic Superficial injury; contusion (20 sources) Abrasion of perineum; Translations: [Abrasion or friction burn of trunk, without mention of infection] 11-18-2018 Episodic Unclassified (18 sources) 03-30-2022 Unclassified (20 sources) 10-07-2021 Unclassified (18 sources) 03-30-2022 Unclassified (20 sources) 10-07-2021 Unclassified (20 sources) 10-07-2021 Unclassified (18 sources) 03-30-2022 Unclassified (18 sources) 03-30-2022 Urinary tract infections (20 sources) Urinary tract infectious disease; Translations: [Urinary tract infection, site not specified] Onset: 2 02-16-2018 Episodic Past or Other Problems Problem Classification Problem Date Documented Da te Episodic/Chronic Other complications of (1 source) Supervision of elderly multigravida, third trimester; Translations: [Supervision of elderly multigravida, third trimester] Onset: 11-09-2022 Episodic Results Test Name Value Interpretation Reference Range Facility Laboratory - Hematology and Cell countson 03-22-2025 HbA1c (Bld) [Mass fraction] 5.9 % Normal 4.6 - 7.1 % [facility] CULTURE, AEROBIC BACTERIAon 09-17-2024 CULTURE, AEROBIC BACTERIA SEE NOTE Normal [facility] Comment on above: Result Comment: CULTURE, AEROBIC BACTERIA Micro Number: [id number] Test Status: Final Specimen Source: Right breast Specimen Quality: Adequate Result: A mix of organisms of questionable significance was recovered on culture and not further identified. (Note: Growth did not detect the presence of S.aureus, beta-hemolytic Streptococci or P.aeruginosa). Performed By: #### 4 550 #### [facility] [address], [address] [place] [id number] Ccnp: Geovani Torres MD No Panel Informationon 09-14 SEE NOTE Normal [employer].; [employer]. CULTURE, URINE, ROUTINEon CULTURE, URINE, ROUTINE SEE NOTE Normal [facility] Comment on above: Result Comment: CULTURE, URINE, ROUTINE Micro Number: [id number] Test Status: Final Specimen Source: Urine Specimen Quality: Adequate Result: Mixed genital davonte isolated. These superficial bacteria are not indicative of a urinary tract infection. No further organism identification is warranted on this specimen. If clinically indicated, recollect clean-catch, mid-stream urine and transfer immediately to Urine Culture Transport Tube. Performed By: #### 3 95 #### [id number] [address], [address] [place] [address] Ccnp: Geovani Torres MD Laboratory - Chemistry and C hemistry - challengeon 06-23-2024 Bilirubin Ql (U) Negative Normal [facility].; [employer] Ketones Ql (U) Negative Normal [facility] [employer]culator.; [employer], [employer]. pH (U) 5.5 [pH] Normal [employer].; [employer] Specific gravity (U) [Rel density] >1.030 Normal [employer].; [employer], [employer]. Urobilinogen Qn (U) 0.2 mg/dL Normal [facility] [employer].; [employer]. Laboratory - Hematology and Cell countson 06-23-2024 Hemoglobin Ql (U) Negative Normal [employer].; [employer] Laboratory - Specimen inform ationon 06-23-2024 Appearance (U) clear Normal [employer].; [employer], [employer]. Color (U) yellow Normal [employer].; [employer] Laboratory - Urinalysison Glucose Test strip (U) [Mass/Vol] Negative Normal [employer].; [employer] Leukocyte esterase Test strip Ql (U) Negative Normal [facility].; [employer] [facility], Inc[facility] Nitrite Ql (U) Negative Normal [facility].; [employer] [place] [employer] [facility], Inc[facility] Protein Ql (U) Negative Normal [facility], [employer].; [employer] No Panel Informationon 06-23 SEE NOTE Normal [facility].; [employer] [place] [employer] [facility], [employer]. COMPREHENSIVE METABOLIC PANE Oscar 05-25-2024 Albumin [Mass/Vol] 4.3 g/dL Normal 3.6-5.1 [facility] Comment on above: Performed By: #### 7 600, 31370 #### [facility] [place] [address] Ccnp: Geovani Torres MD Albumin/Globulin [Mass ratio] 1.3 {ratio} Normal 1.0-2.5 [facility] Comment on above: Performed By: #### 7 600, 52590 #### [facility] [place] [address] Ccnp: Geovani Torres MD ALP [Catalytic activity/Vol] 57 U/L Normal 31-125 [facility] Comment on above: Performed By: #### 7 600, 18014 #### [facility] [place] [address] Ccnp: Geovani Torres MD ALT [Catalytic activity/Vol] 53 U/L High 6-29 [facility] Comment on above: Performed By: #### 7 600, 24760 #### [facility] [place] [address] Ccnp: Geovani Torres MD AST [Catalytic activity/Vol] 49 U/L High 10-30 [facility] Comment on above: Performed By: #### 7 600, 72902 #### [facility] [place] [address] Ccnp: Geovani Torres MD Bilirubin [Mass/Vol] 0.2 mg/dL Normal 0.2-1.2 [facility] Comment on above: Performed By: #### 7 600, 44808 #### [facility] [place] [address] Ccnp: Geovani Torres MD BUN/CREATININE RATIO SEE NOTE: Normal 6-22 [facility] Comment on above: Result Comment: Not Reported: BUN and Creatinine are within reference range. Performed By: #### 7 600, 89773 #### [facility] of [address], [address] [place] [address] Ccnp: Geovani Torres MD Calcium [Mass/Vol] 8.9 mg/dL Normal 8.6-10.2 [facility] Comment on above: Performed By: #### 7 600, 45067 #### [facility] [place] [address] Ccnp: Geovani Torres MD Chloride [Moles/Vol] 105 mmol/L Normal 98-110 [facility] Comment on above: Performed By: #### 7 600, 93137 #### [facility] of [address], [address] [place] [address] Ccnp: Geovani Torres MD CO2 [Moles/Vol] 22 mmol/L Normal 20-32 [facility] Comment on above: Performed By: #### 7 600, 98151 #### [facility] [place] [address] Ccnp: Geovani Torres MD Creatinine [Mass/Vol] 0.67 mg/dL Normal 0.50-0.[address] [facility] Comment on above: Performed By: #### 7 600, 58258 #### [facility] of [place] [address] Ccnp: Geovani Torres MD GFR/1.73 sq M.predicted among non-blacks MDRD (S/P/Bld) [Vol rate/Area] 114 mL/min/{1.73_m2} Normal > OR = 60 [facility] Comment on above: Performed By: #### 7 600, 76200 #### [facility] of [address], [address] [place] [address] Ccnp: Geovani Torres MD Globulin (S) [Mass/Vol] 3.4 g/dL Normal 1.9-3.7 [facility] Comment on above: Performed By: #### 7 600, 10545 #### [facility] of [address], [address] [place] [address] Ccnp: Geovani Torres MD Glucose [Mass/Vol] 91 mg/dL Normal 65-99 [facility] Comment on above: Result Comment: Fasting reference interval Performed By: #### 7 600, 36732 #### [facility] of [place] [address] Ccnp: Geovani Torres MD Potassium [Moles/Vol] 4.3 mmol/L Normal 3.5-5.[address] [facility] [address] [facility] Comment on above: Performed By: #### 7 600, 97027 #### [facility] of [address], [address] [place] [address] Ccnp: Geovani Torres MD Protein [Mass/Vol] 7.7 g/dL Normal 6.1-8.1 [facility] Comment on above: Performed By: #### 7 600, 86301 #### [facility] of [place] [address] Ccnp: Geovani Torres MD Sodium [Moles/Vol] 136 mmol/L Normal 135-146 [facility] Comment on above: Performed By: #### 7 600, 89167 #### [facility] of [place] [address] Ccnp: Geovani Torres MD Urea nitrogen [Mass/Vol] 12 mg/dL Normal 7-25 [facility] Comment on above: Performed By: #### 7 600, 46657 #### [facility] of [place] [address] Ccnp: Geovani Torres MD LIPID PANEL, [facility] [place] 08-1 5-2024 Cholesterol [Mass/Vol] 201 mg/dL High <200 [facility] Comment on above: Performed By: #### 7 600, 46352 #### [facility] [place] [address] Ccnp: Geovani Torres MD Cholesterol in HDL [Mass/Vol] 46 mg/dL Low > OR = 50 [facility] Comment on above: Performed By: #### 7 600, 89213 #### [facility] [place] [address] Ccnp: Geovani Torres MD Cholesterol in LDL [Mass/Vol] 135 mg/dL High [facility] Comment on above: Result Comment: Refe rence range: <100 Desirable range <100 mg/dL for primary prevention; <70 mg/dL for patients with CHD or diabetic patients with > or = 2 CHD risk factors. LDL-C is now calculated using the Froylan calculation, which is a validated novel method providing better accuracy than the Friedewald equation in the estimation of LDL-C. Prasad WILLETT et al. BIPIN. 2013;310(19): 3928-4373 (http://education.Cyota.[employer]ession[employer]/faq/PUV051) Performed By: #### 7 600, 24109 #### [facility] [place] [address] Ccnp: Geovani Torres MD Cholesterol.total/Cho lesterol in HDL [Mass ratio] 4.4 {ratio} Normal <5.0 [facility] Comment on above: Performed By: #### 7 600, 97455 #### [facility] [place] [address] Ccnp: Geovani Torres MD NON HDL CHOLESTEROL 155 mg/dL (calc) High <130 [facility] Comment on above: Result Comment: For patients with diabetes plus 1 major ASCVD risk factor, treating to a non-HDL-C goal of <100 mg/dL (LDL-C of <70 mg/dL) is considered a therapeutic option. Performed By: #### 7 600, 36131 #### [facility] [address] [place] [address] Ccnp: Geovani Torres MD Triglyceride [Mass/Vol] 102 mg/dL Normal <150 [facility] Comment on above: Performed By: #### 7 399, 50889 #### [facility] [address] [facility], [address] [place] [address] Ccnp: Geovani Torres MD No Panel Informationon 05-24 201 mg/dL Abnormal [facility] 46 mg/dL Abnormal [facility] 102 mg/dL Normal [facility] 135 Abnormal [facility] 4.4 Normal [facility] 155 Abnormal [facility] 91 mg/dL Normal 65 - 99 mg/dL [facility] 12 mg/dL Normal 7 - 25 mg/dL anchor[employer] [facility], Inc.; [facility] [employer] 0.67 mg/dL Normal 0.50 - 0.97 mg/dL [facility] 114 Normal [facility].; [facility] SEE NOTE: Normal 6 - 22 [facility] 136 mmol/L Normal 135 - 146 mmol/L [facility] 4.3 mmol/L Normal 3.5 - 5.3 mmol/L [facility] 105 mmol/L Normal 98 - 110 mmol/L [facility] [employer] 22 mmol/L Normal 20 - 32 mmol/L [facility] [employer] 8.9 mg/dL Normal 8.6 - 10.2 mg/dL [facility] [employer] 7.7 g/dL Normal 6.1 - 8.1 g/dL [facility] 4.3 g/dL Normal 3.6 - 5.1 g/dL [facility] 3.4 Normal 1.9 - 3.7 [facility].; [facility] 1.3 Normal 1.0 - 2.5 [facility] 0.2 mg/dL Normal 0.2 - 1.2 mg/dL [facility] 57 U/L Normal 31 - 125 U/L [facility].; [facility] 49 U/L Abnormal 10 - 30 U/L [facility] 53 U/L Abnormal 6 - 29 U/L [facility] PAP IG HPV APTIMA 16/18,45on 06-23-2023 ADEQ Comment Normal . [facility] Comment on above: Order Comment: Speci men Comment: [id number] Specimen Comment: No. of containers..01 ThinPrep Vial Result Comment: Sati sfactory for evaluation. Endocervical and/or squamous metaplastic cells (endocervical component) are present. Performed By: #### L 7400.0280 #### [facility] [address] [place], [address] COMM . Normal . [facility] Comment on above: Order Comment: Speci men Comment: [id number] Specimen Comment: No. of containers..01 ThinPrep Vial Performed By: #### L 7400.0280 #### [facility] [address] [place], [place], [address] COMMENT Comment Normal . [facility] Comment on above: Order Comment: Speci men Comment: [id number] Specimen Comment: No. of containers..01 ThinPrep Vial Result Comment: This liquid based ThinPrep(R) pap test was screened with the use of an image guided system. Performed By: #### L 7400.0280 #### [facility] [address] [place], [place], [id number] DIAG Comment Normal . [facility] Comment on above: Order Comment: Speci men Comment: [id number] Specimen Comment: No. of containers..01 ThinPrep Vial Result Comment: NEGA TIVE FOR INTRAEPITHELIAL LESION OR MALIGNANCY. CELLULAR CHANGES ASSOCIATED WITH INFLAMMATION ARE PRESENT. THIS SPECIMEN WAS RESCREENED PART OF OUR MARINE METEOROLOGIST PROGRAM. Performed By: #### L 7400.0280 #### [facility] [address] [place], [place], [id number] HPV APTIMA, HR Negative Normal Negative [facility] Comment on above: Order Comment: Speci men Comment: [id number] Specimen Comment: No. of containers..01 ThinPrep Vial Result Comment: This nucleic acid amplification test detects fourteen high- risk HPV types (16,18,31,33,35,39,45,51,52,56,58,59,66,68) without differentiation. Performed By: #### L 7400.0280 #### [facility] [address] [place], [place], [id number] HPV Palak Rfx Comment Normal . [facility] Comment on above: Order Comment: Speci men Comment: [id number] Specimen Comment: No. of containers..01 ThinPrep Vial Result Comment: Crit eria not met, HPV Genotype not performed. Performed at: - [address] [id number] Business Development Analyst: Lucy Camacho MD, Phone: [phone] Performed at: = - [facility] [id number] Business Development Analyst: Lucy Camacho MD, Phone: [phone] Performed By: #### L 7400.0280 #### [facility] [address] [place], [place], [address] PAPSMR Comment Normal . [facility] Comment on above: Order Comment: Speci men Comment: [id number] Specimen Comment: No. of containers..01 ThinPrep Vial Result Comment: The Pap smear is a screening test designed to aid in the detection of premalignant and malignant conditions of the uterine cervix. It is not a diagnostic procedure and should not be used as the sole means of detecting cervical cancer. Both false-positive and false-negative reports do occur. Performed By: #### L 7400.0280 #### [facility] [address] [place], [place], [address] PERFORM Comment Normal . [facility] Comment on above: Order Comment: Speci men Comment: [id number] Specimen Comment: No. of containers..01 ThinPrep Vial Result Comment: Jaida Madrid, Family Assistant (ASCP) Performed By: #### L 7400.0280 #### [facility] [address] [place], [place], [address] QC REV Comment Normal . [facility] Comment on above: Order Comment: Speci men Comment: [id number] Specimen Comment: No. of containers..01 ThinPrep Vial Result Comment: Radha Mckeon, Supervisory Family Assistant (ASCP) Performed By: #### L 7400.0280 #### [facility] [address] [place], [place], [address] Cervical or vagninal specime n microscopic examination by cytology stain (reported asOrdered By: Shilpi Bautista on 06-18-2023 Cytology report Cyto stain Doc (Cvx/Vag) Comment . [facility] Comment on above: The Pap smear is a s creening test designed to aid in thedetection of premalignant and malignant conditions of theuterine cervix. It is not a diagnostic procedure andshould not be used as the sole means of detecting cervicalcancer. Both false-positive and false-negative reports dooccur. Detection in cervical specim en of any of human papilloma virus (HPV) 16, 18, 31, 33,Ordered By: Shilpi Bautista on 06-18-2023 HPV 16+18+31+33+35+39+45+ 51+52+56+58+59+66+68 DNA Probe+sig amp Ql (Cvx) Negative Negative [facility] Comment on above: This nucleic acid am plification test detects fourteen high- risk HPV types (16,18,31,33,35,39,45,51,52,56,58,59,66,68)without differentiation. Laboratory - CytologyOrdered By: Shilpi Bautista on 06-18-2023 Stonework Supervisor Cyto stain Nom (Cvx/Vag) [ID] Comment . [facility] Comment on above: Prateek Crisostomo totechnologist (ASCP) Laboratory - Miscellaneous t estsOrdered By: Shilpi Bautista on 06-18-2023 Service comment (Unsp spec) [Interp] Comment . [facility] Comment on above: This liquid based Th inPrep(R) pap test was screened withthe use of an image guided system. Service comment (Unsp spec) [Interp] . . [facility] Liquid-based cerv Pap + CT/G C by SAE w reflex to high-risk HPV for ASCUSOrdered By: Shilpi Bautista on 06-18-2023 Cytology report Cyto stain.thin prep Doc (Cvx/Vag) Comment . [facility] Comment on above: Criteria not met, HP V Genotype not performed.Performed at: WB - [facility] [id number] Director: Lucy Camacho MD, Phone: [phone] at: =G - [facility] [id number] Director: Lucy Camacho MD, Phone: [phone] No Panel InformationOrdered By: Shilpi Bautista on 06-18-2023 Pathology report final diagnosis Narrative Comment . [facility] Comment on above: NEGATIVE FOR INTRAEP ITHELIAL LESION OR MALIGNANCY.CELLULAR CHANGES ASSOCIATED WITH INFLAMMATION ARE PRESENT.THIS SPECIMEN WAS RESCREENED PART OF OUR MARINE METEOROLOGIST PROGRAM. 3D MAMM BILAT DIAGNOSTICon 0 06-11-2023 3D MAMM BILAT DIAGNOSTIC [place] [address] Patient: HIEN SPARKS Phone#: : 1985 Age: 37 Gender: F Pt. Type: Out Account: [id number] Location: 052 Ordering: ALISON ALEXANDER Exam Date: 06/11/2023/10:08 Family Phys: JUANY COOKROMELIAJEMIMA Charge Code: [id number] Physician: [place] Order #: [id number] Dose#: PROCEDURE: BILATERAL DIAGNOSTIC BREAST TOMOSYNTHESIS MAMMOGRAM WITH CAD COMPARISON: [facility], BREAST RT COMPLETE, 06/09/2023, 10:15. INDICATIONS: LUMP BREAST COMPOSITION: Scattered areas fibroglandular density. FINDINGS: DIAGNOSTIC CATEGORY 1--NEGATIVE: RIGHT BREAST: No significant suspicious finding. LEFT BREAST: No significant suspicious finding. RECOMMENDATIONS: CLINICAL EVALUATION. PLEASE NOTE: A NORMAL MAMMOGRAM DOES NOT EXCLUDE THE POSSIBILITY OF BREAST CANCER. A CLINICALLY SUSPICIOUS PALPABLE LUMP SHOULD BE BIOPSIED. THIS FACILITY UTILIZES A REMINDER SYSTEM TO ENSURE THAT ALL PATIENTS RECEIVE REMINDER LETTERS FOR APPOINTMENTS. THIS INCLUDES REMINDERS FOR ROUTINE MAMMOGRAMS, DIAGNOSITC MAMMOGRAMS, OR OTHER BREAST IMAGING INTERVENTIONS WHEN APPROPRIATE. THIS PATIENT WILL BE PLACED IN THE APPROPRIATE REMINDER SYSTEM. Dictated by: Maureen Collier MD on 06/11/2023 at 11:49 Approved by: Maureen Collier MD on 06/11/2023 at 11:50 Normal [facility] US BREAST RT UNILATERAL COMP LETEon 06-09-2023 US BREAST RT UNILATERAL COMPLETE [address] [address] Patient: HIEN SPARKS Phone#: : 1985 Age: 37 Gender: F Pt. Type: Out Account: [id number] Location: 052 Ordering: ALISON ALEXANDER Exam Date: 06/09/2023/10:15 Family Phys: JUANY COOKROMELIAJEMIMA Charge Code: [id number] Physician: [place] Order #: [id number] Dose#: PROCEDURE: ULTRASOUND BREAST RT COMPARISON: None. INDICATIONS: Right breast pain TECHNIQUE: Breast ultrasound was performed, with evaluation focusing on all four quadrants. FINDINGS: DIAGNOSTIC CATEGORY 1--NEGATIVE: RIGHT BREAST: No significant suspicious finding. RECOMMENDATIONS: CLINICAL EVALUATION. PLEASE NOTE: A NORMAL MAMMOGRAM DOES NOT EXCLUDE THE POSSIBILITY OF BREAST CANCER. A CLINICALLY SUSPICIOUS PALPABLE LUMP SHOULD BE BIOPSIED. Dictated by: Jazmine Talley MD on 06/09/2023 at 12:13 Approved by: Jazmine Talley MD on 06/09/2023 at 12:15 Normal [facility] - Chemistry and C hemistry - challengeon 05-28-2023 Beta HCG ( test) Ql (U) Negative Normal [facility].; [facility] 11-02-2022 MR/GUERO.[facility] [address] [place] [address] OFFICE VISIT Date of Service: 11/01/22 MR#: [id number] Acct: [id number] Name: HIEN SPARKS Rep #: [id number] : 1985 Provider: VIKAS hunt Age/Sex: 37/F Location: [facility] [place] Status: Signed Intake Vital Signs 10/28/22 12:36 11/02/22 12:00 Height 5 ft 1.5 in 5 ft 1.5 in Intake Visit Reasons: Latch Assessment Chief Complaint: assessment Accompanied by: Significant Other Allergies egg Allergy (Severe, Verified 10/28/22 14:40) Other latex Allergy (Mild, Verified 10/28/22 14:40) Rash acetaminophen [From Vicodin] Adverse Reaction (Verified 10/28/22 14:40) Vomiting hydrocodone [From Vicodin] Adverse Reaction (Verified 10/28/22 14:40) Vomiting : Yes PFSH PFSH Medical History (Updated 10/29/22 @ 02:[address] Lai Bautista MD) Dysuria Fatty liver HTN (hypertension) Sarcoidosis Sleep apnea Surgical History (Updated 10/28/22 @ 15:26 by Tish Chen) Previous section Social History Smoking Status: Former smoker alcohol intake: never History Elective abortions Hx Para 1 Spontaneous abortions Hx # Term Pregnancies Ectopic pregnancies Hx # Pregnancies Multiple births # of living children HPI HPI HPI: HIEN SPARKS, is a 37 F who presents to the office today for assessment. History provided by the patient. ROS ROS Const Constitutional: Denies fever(s) or lethargy : Denies nipple discharge Skin Skin/Breast: Denies breast pain, breast skin changes or nipple discharge Details: difficulty getting baby to latch, latched 1x in last 24 hours for 1-2 minutes, patient has been pumping and feeding, able to pump 20-30 cc and supplementing with formula, mom using evenflo 1 sided pump 10 minutes per side every 2-3 hours Exam Maternal Assessment Breast Assessment Bilateral Breasts: Full Nipple Assessment Bilateral Nipples: Everted Areolar Tissue Areolar Tissue: Pliable Assessment Baby Feeding History Is your baby latching onto the breast: Yes Number of Breast Feedings in 24 hours: 1 Minutes per breast: First Breast: 1-2 Supplements Supplement Type:: Formula and Expressed milk Frequency: q2-3 hours Amount: 1 oz Breast Pumping Type of Breast Pump: Evenflo Frequency: q2-3 hours Amount: 20-30 cc Goals Breast Feeding Goals: To provide as much breastmilk as possible Exam Const General: comfortable and no acute distress Orientation: alert and oriented x3 Chest Breast inspection: normal inspection of the breasts Breast palpation: normal palpation of the breasts Resp Effort Inspection: normal respiratory effort Skin General: no rashes or lesions noted Psych Appearance: grossly normal Mental Status: mental status grossly normal Affect: normal affect Assessment and Plan Assessment and Plan (1) Care and examination of lactating mother: Plan: Prescription sent for double pump through insurance. Continue to pump q2-3 hours, goal 15 minutes per side. Educated on pump settings. Increase oatmeal, coconut water and body armor drinks. Follow up with PRN. Coding Level of Care Code 46565 PRVT COUNSELING INDIVID Diagnoses Care and examination of lactating mother Z39.1 Time Spent (min) 30 11/11/22 3049 Date Yudith Najera NP COMMUNITY ORGANIZATION DIRECTOR-C Cosigner Signature: Date (if applicable) CC: Normal [facility] Discharge Instructionon 10-12 Discharge Instruction [facility] Medical Records Department [address] [place] [address] Instructions for Home/Discharge Instructions 10/30/22 0707 MR#: [id number] Acct: [id number] Name: HIEN SPARKS Rep #: [id number] : 1985 37 From: Shilpi Bautista DO PCP: CHASIDY Angulo Status:ADM IN Discharge Instructions Diet Discharge Diet: No restrictions Activity Discharge Activity: Return to Normal Activity and May Shower May resume sexual activity in: 4-6 weeks Weight Bearing Status: Weight bearing as tolerated Lifting Restrictions: No greater than 25 pounds Dressing / Incision Call your doctor if your incision/area has: Continuous Slow Oozing, Increased Redness and Swelling at the incision site Call your doctor if you observe: Fever of 101 or Higher, Change in Color, Inability to urinate, Using more than 1 pad per hour, Shortness of breath, Dizziness, Swelling in the ankles, Chest pain and Calf discomfort Remove Dressing in: 1 week Cleanse incision/area with: Soap Water and Keep Dressing Clean Dry Follow Up Care Please Follow Up With: Shilpi Bautista DO When: 2-week and 6-week visit Test Results: Test results from this visit will be discussed in further detail at your follow-up appointment, if applicable. Discharge Plan Admission Admit Date/Time: 10/28/22 12:30 Primary Reason for Your Visit: section and tubal ligation Attending Provider: Shilpi Bautista Primary Care Provider: Alison Alexander Discharge Orders/Prescriptions Prescriptions: New oxycodone 5 mg Tablet 5 mg PO Q6H PRN PRN (Reason: Pain Score 7-10) 4 Days Qty: 20 0RF Continued famotidine [Pepcid AC] 10 mg Tablet 10 mg PO BID sertraline [Zoloft] 100 mg Tablet 100 mg PO DAILY [id number] 1 mg Tablet 1 tab PO DAILY Referrals / Follow Up: Alison Alexander PA [Primary Care Provider] - Disposition Disposition (needs filled in before D/C Order can be placed): Home, Self Care 10/30/22 0708 Shilpi Bautista DO CC: CHASIDY Alexander Signed Normal [facility] CBC-Complete Blood Cnt No Di ffon 10-29-2022 Erythrocyte distribution width (RBC) [Ratio] 14.6 % Normal 11.6-14.6 [facility] Comment on above: Order Comment: Comme nts: Day #1Reason for Laboratory Test Performed By: #### M 100.2200 #### [facility] [address] [place], [address] Hematocrit (Bld) [Volume fraction] 27.4 % Low 37-47 [facility] Comment on above: Order Comment: Comme nts: Day #1Reason for Laboratory Test Performed By: #### M 100.2200 #### [facility] [address] [place], [address] Hemoglobin (Bld) [Mass/Vol] 8.8 g/dL Low 12.0-15.0 [facility] Comment on above: Order Comment: Comme nts: Day #1Reason for Laboratory Test Performed By: #### M 100.2200 #### [facility] [address] [place], [address] MCH (RBC) [Entitic mass] 28.3 pg Normal 27.0-32.0 [facility] Comment on above: Order Comment: Comme nts: Day #1Reason for Laboratory Test Performed By: #### M 100.2200 #### [facility] [address] [place], [address] MCHC (RBC) [Mass/Vol] 32.1 g/dL Normal 32-36 [facility] Comment on above: Order Comment: Comme nts: Day #1Reason for Laboratory Test Performed By: #### M 100.2200 #### [facility] [address] [place], [address] MCV (RBC) [Entitic vol] 88.1 fL Normal 81-99 [facility] Comment on above: Order Comment: Comme nts: Day #1Reason for Laboratory Test Performed By: #### M 100.2200 #### [facility] [address] [place], [address] Platelet mean volume (Bld) [Entitic vol] 10.6 fL Normal 6.2-12.0 [facility] Comment on above: Order Comment: Comme nts: Day #1Reason for Laboratory Test Performed By: #### M 100.2200 #### [facility] [address] [place], [address] Platelets (Bld) [#/Vol] 192 10*3/uL Normal 150-450 [facility] Comment on above: Order Comment: Comme nts: Day #1Reason for Laboratory Test Performed By: #### M 100.2200 #### [facility] [address] [place], [address] RBC (Bld) [#/Vol] 3.11 10*6/uL Low 4.2-5.4 [facility] Comment on above: Order Comment: Comme nts: Day #1Reason for Laboratory Test Performed By: #### M 100.2200 #### [facility] [address] [place], [address] RDW SD 46.2 fl High 35.1-43.9 [facility] Comment on above: Order Comment: Comme nts: Day #1Reason for Laboratory Test Performed By: #### M 100.2200 #### [facility] [address] [place], [address] WBC (Bld) [#/Vol] 10.8 10*3/uL Normal 4.4-11.0 [facility] Comment on above: Order Comment: Comme nts: Day #1Reason for Laboratory Test Performed By: #### M 100.2200 #### [facility] [address] [place], [address] CBC W/Diff, Automatedon 10-11 Absolute Lymph 1.11 X10 3/uL Normal 0.83-4.51 [facility] Comment on above: Performed By: #### M 100.2200 #### [facility] [address] [place], [address] Absolute Neut 4.6 X10 3/uL Normal 2.0-7.7 [facility] Comment on above: Performed By: #### M 100.2200 #### [facility] [address] [place], [address] Basophils/100 WBC (Bld) 0.3 % Normal 0-1 [facility] Comment on above: Performed By: #### M 100.2200 #### [facility] [address] [place], [address] Eosinophils/100 WBC (Bld) 0.5 % Normal 0-5 [facility] Comment on above: Performed By: #### M 100.2200 #### [facility] [address] [place], [address] Erythrocyte distribution width (RBC) [Ratio] 14.8 % High 11.6-14.6 [facility] Comment on above: Performed By: #### M 100.2200 #### [facility] [address] [place], [address] Hematocrit (Bld) [Volume fraction] 32.9 % Low 37-47 [facility] Comment on above: Performed By: #### M 100.2200 #### [facility] [address] [place], [address] Hemoglobin (Bld) [Mass/Vol] 10.7 g/dL Low 12.0-15.0 [facility] Comment on above: Performed By: #### M 100.2200 #### [facility] [address] [place], [address] IG% 1.100 High 0.0-0.9 [facility] Comment on above: Result Comment: IG% - Immature Granulocytes (promyelocytes, myelocytes and metamyelocytes) > 1% indicates that a LEFT SHIFT is Present. Performed By: #### M 100.2200 #### [facility] [address] [place], [address] Lymphocytes/100 WBC (Bld) 17.7 % Low 19-41 [facility] Comment on above: Performed By: #### M 100.2200 #### [facility] [address] [place], [address] MCH (RBC) [Entitic mass] 28.0 pg Normal 27.0-32.0 [facility] Comment on above: Performed By: #### M 100.2200 #### [facility] [address] [place], [address] MCHC (RBC) [Mass/Vol] 32.5 g/dL Normal 32-36 [facility] Comment on above: Performed By: #### M 100.2200 #### [facility] [address] [place], [address] MCV (RBC) [Entitic vol] 86.1 fL Normal 81-99 [facility] Comment on above: Performed By: #### M 100.2200 #### [facility] [address] [place], [address] Monocytes/100 WBC (Bld) 7.8 % Normal 0-10 [facility] Comment on above: Performed By: #### M 100.2200 #### [facility] [address] [place], [address] Neutrophils/100 WBC (Bld) 72.6 % High 47-70 [facility] Comment on above: Performed By: #### M 100.2200 #### [facility] [address] [place], [address] Nucleated RBC (Bld) [#/Vol] 0 10*3/uL Normal 0-5 [facility] Comment on above: Performed By: #### M 100.2200 #### [facility] [address] [place], [address] Platelet mean volume (Bld) [Entitic vol] 11.2 fL Normal 6.2-12.0 [facility] Comment on above: Performed By: #### M 100.2200 #### [facility] [address] [place], [address] Platelets (Bld) [#/Vol] 213 10*3/uL Normal 150-450 [facility] Comment on above: Performed By: #### M 100.2200 #### [facility] [address] [place], [address] RBC (Bld) [#/Vol] 3.82 10*6/uL Low 4.2-5.4 [facility] Comment on above: Performed By: #### M 100.2200 #### [facility] [address] [place], [address] RDW SD 46.5 fl High 35.1-43.9 [facility] Comment on above: Performed By: #### M 100.2200 #### [facility] [address] [place], [address] WBC (Bld) [#/Vol] 6.3 10*3/uL Normal 4.4-11.0 [facility] Comment on above: Performed By: #### M 100.2200 #### [facility] [address] [place], [address] H AND P Exam - OB/GYNon 10-11 H&P Exam - MULE RIDER [facility] Medical Records Department [address] [place] [address] H P Exam - MULE RIDER 10/28/22 1742 MR#: [id number] Acct: [id number] Name: HIEN SPARKS Rep #: [id number] : 1985 37 From: Shilpi Bautista DO PCP: CHASIDY Angulo Status:ADM IN [facility] History and Physical Date of Admission: 10/28/22 HPI: 37-year-old G3, P1 at 38/5 weeks, BRIGITTE 11/06/2022 by LMP, admitted for repeat section bilateral salpingectomy. Patient was in the office today and had a BPP of 6 out of 10. Recommended delivery today for equivocal testing. Denies regular contractions, leaking of fluid, vaginal bleeding. Reports movement. Denies headache or vision changes, chest pain or shortness of breath, nausea or vomiting, diarrhea constipation, fevers or chills. complicated by: Nonalcoholic steatosis, chronic hypertension on no meds, advanced maternal age, sarcoidosis, obstructive sleep apnea, resolved low-lying placenta. MULE RIDER history: G1 10-week SAB G2 40-week G3 current Medical history: Nonalcoholic steatosis, chronic hypertension on no meds, sarcoidosis, obstructive sleep apnea, depression Surgical history: 1. Douglas teeth extraction 2. section Family history: Noncontributory. No history of blood clots or bleeding disorders. Social history: Reports former tobacco use, denies alcohol or drug use Allergies: 1. Egg 2. Latex causes rash 3. Vicodin causes vomiting Medications 1. Pepcid 2. vitamin 3. Sertraline Review of system: Negative other stated above Physical Exam: Temp 97.1 ???F, heart rate 92, blood pressure 137/77, respiratory rate 16, oxygen saturation 98% on room air General: No acute distress HEENT: Normal cephalic/atraumatic, PERRLA Cardiorespiratory: No increased effort Abdomen: Soft, nontender, gravid Extremities: Minimal edema Neurologic: No focal deficits, cranial nerves II through XII grossly intact Musculoskeletal: Strength out of 5 throughout extremities FHR: 150/mod sabas/+accel/no decel Tatum: quiet labs A+ Negative hepatitis B Rubella immune Syphilis negative Gonorrhea and chlamydia negative Assessment/Plan: 37-year-old G3, P1 at 38/5 weeks, BRIGITTE 11/06/2022 by LMP, admitted for repeat section bilateral salpingectomy for equivocal testing. complicated by: Nonalcoholic steatosis, chronic hypertension on no meds, advanced maternal age, sarcoidosis, obstructive sleep apnea, resolved low-lying placenta. ???Admit to labor and delivery for repeat section ???Continuous monitoring. status reassuring ???Plan for section and sterilization at 6 PM as patient ate at 930/10 AM. 2 g Ancef preoperatively 10/28/22 1750 Cosigner Signature (if applicable): CC: CHASIDY Alexander; Dr. Shilpi Batuista DO Signed Normal [facility] Operative Reporton [address] [facility] Medical Records Department [address] [place] [address] Operative Report 10/28/22 191 MR#: [id number] Acct: [id number] Name: HIEN SPARKS Rep #: [id number] : 1985 37 From: Shilpi Bautista DO PCP: CHASIDY Angulo Status:ADM IN Location: [place] [id number] Details Operative Information Date of Procedure: 10/28/22 Pre-Operative Diagnosis: Montez intrauterine , equivocal testing Montez intrauterine , equivocal testing, repeat section, desires sterilization Post-Operative Diagnosis: Montez intrauterine , equivocal testing Montez intrauterine , equivocal testing, repeat section, desires sterilization Indications Narrative: 37-year-old G3, P1 at 38/5 weeks for repeat section and bilateral salpingectomy for equivocal testing. All risk, benefits, alternatives discussed with the patient. Risk include but are not limited to: Risk of bleeding to the point of transfusion, infection, injury to surrounding tissue including bowel/bladder potentially requiring prolonged Chakraborty catheter use, VTE, ICU admission. Patient aware and consented. Type of Anesthesia: Spinal Estimated Blood Loss: 800cc Fluids Replaced: 950cc Findings Description of Procedure: Procedure: Repeat section, bilateral salpingectomy, lysis of adhesions Patient taken to the operating room and spinal anesthesia placed. Patient placed in the supine position with left lateral tilt. Prepped and draped in the usual sterile fashion. Pfannenstiel skin incision made with scalpel and carried down through subcutaneous tissue. Fascia nicked on either side of midline and extended bilaterally using Jovel scissors. Priscila clamps grasped superior fascial edge was tented up and underlying rectus muscles were dissected off bluntly and sharply at midline using Jovel scissors. Priscila clamps then moved to the inferior fascial edge which was tented up and underlying rectus muscles were dissected off in a similar fashion. Hemostats used to separate rectus muscle superiorly and peritoneum entered bluntly. Adhesion of the anterior uterus to anterior abdominal wall fascia was noted. Bladder blade placed. Low transverse uterine incision made with scalpel and extended bluntly. Hand placed into the uterine cavity and had elevated to the hysterotomy. Bladder blade removed. During head elevation baby was attempting to rotate to a breech position. Unable to keep head in cephalic position. Therefore vacuum was utilized to help deliver head. 2 pop offs. Head delivered followed by body. 3 nuchal cords, loose, reduced. Cord clamped and cut. Baby handed to nursing. Spontaneous delivery of placenta. Uterus cleared of all clots. Bladder blade replaced. Hysterotomy closed with a running locking stitch. Adhesions of the uterus to the anterior abdominal wall fascia were lysed after ensuring there was no bowel attached as well. Lysis of adhesions was completed utilizing LigaSure and Bovie. Uterus was then exteriorized. Right fallopian tube was identified, grasped with Ian clamps. Right fallopian tube was removed along mesosalpinx using the LigaSure. Left fallopian tube was then identified, grasped with [place] clamps. Fallopian tube was removed using LigaSure device along the mesosalpinx. Anterior uterine region where adhesions were lysed was reapproximated using a running stitch. Hemostatic with the stitch and Bovie. Second imbricating stitch placed along the hysterotomy closure. Hemostatic. Uterus replaced into the abdominal cavity. Closures were noted to be hemostatic as were mesosalpinx. Aldo placed along the hysterotomy and adhesions closure. Peritoneum closed in a running stitch. Fascia closed with running stitch. Subcutaneous tissue reapproximated with suture. Skin closed with a running subcuticular stitch. At the end of the procedure all needle, lap, sponge counts were correct x3. UOP: 300cc clear urine Infant A Gender: Male (1 minute): 8 (5 minute): 9 Complications Complications: None 10/28/221930 Cosigner Signature (if applicable): CC: CHASIDY Alexander; Dr. Shilpi Bautista DO Signed Normal [facility] Pathology Specimen OBon 10-11 PATH. Spec OB SEE PATHOLOGY REPORT Normal [facility] Comment on above: Order Comment: Comme nts: SUTURE IN RIGHT TUBE Send Specimen For (Specify): Studies @ [facility] Lab:Routine Time of Procedure: 1832 Date of Procedure: 10/28/22 Reason specimen being sent to pathology (Hx/complications): TUBAL LIGATION Type of specimen: Fallopian Tube Type of procedure performed: Repeat Section Result Comment: Spec imen submitted to Anatomical Pathology Department for testing. Performed By: #### L 350.1800 #### [facility] [address] [place], [address] Surgery Specimen Level Arthur 10-28-2022 Surgery Specimen Level IV Patient Age/Sex Location Account Attending Physician HIEN SPARKS 37/F [id number] Dr. Shilpi Bautista DO Specimen: [id number] Received: 10/28/22 Status: DENA Morgan Num: [id number] Spec Type: FALL TUBES Subm Dr: Dr. Shilpi Bautista, [facility] OPERATION: Tubal ligation PRE-OP DIAGNOSIS: Sterilization TISSUE SUBMITTED: Fallopian tubes, suture in right tube MICROSCOPIC DIAGNOSIS Right fallopian tube, salpingectomy: Complete cross-section of fallopian tube. Benign paratubal cysts. Left fallopian tube, salpingectomy: Complete cross-section of fallopian tube. Benign paratubal cyst. AM:bibiana 10/30/2022 MICROSCOPIC DESCRIPTION Slides are reviewed. GROSS DESCRIPTION Received in fixative is one container labeled with the patient's name and designated bilateral fallopian tubes, right tube with suture. The specimen consists of bilateral fallopian tubes including fimbrial ends. The right fallopian tube measures 7.5 cm in length and 0.5 cm in diameter and left fallopian tube measures 7 cm in length and 0.6 cm in diameter. The right fallopian tube also shows a paratubal cyst adjacent to the fimbrial end measuring 0.6 cm in diameter. The left fallopian also shows a cyst measuring 1 cm in greatest dimension. Sections reveal unremarkable cut surfaces. Board Design Engineer sections are submitted in two cassettes as follows: 1 ??? right fallopian tube and paratubal cyst, 2 ??? left fallopian tube and paratubal cyst. / SJ:bibiana 10/29/2022 TC:5 CPT: 13929 x2 Patient Age/Sex Location Account Attending Physician HIEN SPARKS 37/F [id number] Dr. Shilpi Bautista, DO Signed (signature on file) Dr. Oswaldo Garcia DO 10/30/22 1242 Normal [facility] Comment on above: Performed By: #### Frankie 100.0 #### [facility] [address] [place], [address] Type AND Screenon 10-28-2022 Ab SCREEN GEL Negative Normal [facility] Comment on above: Order Comment: SC-SE CTION Performed By: #### Frankie 100.0 #### [facility] [address] [place], [address] ABO and Rh group Nom (Bld) Blood group A Rh(D) positive Normal [facility] Comment on above: Order Comment: SC-SE CTION Performed By: #### M 100.2200 #### [facility] [address] [place], [address] Chlamydia/GC SAE aptimaon GC BY NUC ACID Negative Normal Negative [facility] Comment on above: Result Comment: Perf ormed at: =G - [facility] [address] [id number] Business Development Analyst: Lucy Camacho MD, Phone: [phone] Performed By: #### L 7000.1800, M100.3400 #### [facility] [address] [place], [address] CHLAMY,NUC ACID Negative Normal Negative [facility] Comment on above: Performed By: #### L 7000.1800, M100.3400 #### [facility] [address] [place], [address] Rule out Beta Strep (Grp. B) on 10-08-2022 UNIQUE Group B Beta Streptococcus is not isolated. Normal [facility] Comment on above: Performed By: #### L 7000.1800, M100.3400 #### [facility] [address] [place], [address] Urine Cultureon 10-08-2022 [facility] Mixed Gram Positive Organisms [place] Count >100,000 MIXC Mixed contaminants. Submit a new specimen if indicated. Normal [facility] Comment on above: Performed By: #### M 100.2200 #### [facility] [address] [place], [address] Absolute lymphocyte counton 10-06-2022 Lymphocytes Auto (Unsp spec) [#/Vol] 1.27 10*3/uL 0.83-4.51 [facility] Work Phone: Basophil percentageon 2021 Basophils/100 WBC (Bld) 0.5 % 0-1 [facility] Work Phone: [phone] Bilirubin [Mass/Vol] 0.20 mg/dL 0.20-1.00 [facility] Work Phone: Comment on above: For patients on eltr ombopag therapy, use of Dimension [place] TBIL is not recommended. Chloride [Moles/Vol] 109 mmol/L 98-107 [facility] Work Phone: Eosinophils/100 WBC (Bld) 1.0 % 0-5 [facility] Work Phone: [phone] Glucose [Mass/Vol] 86 mg/dL 74-106 [facility] Work Phone: [phone] Neutrophils (Bld) [#/Vol] 5.6 10*3/uL 2.0-7.7 [facility] Work Phone: [phone] Neutrophils/100 WBC (Bld) 72.8 % 47-70 [facility] Work Phone: [phone] Potassium [Moles/Vol] 3.8 mmol/L 3.5-5.1 [facility] Work Phone: [phone] Protein [Mass/Vol] 6.5 g/dL 6.4-8.2 [facility] Work Phone: [phone] Sodium [Moles/Vol] 138 mmol/L 136-145 [facility] Work Phone: [phone] WBC (Bld) [#/Vol] 7.7 10*3/uL 4.4-11.0 [facility] Work Phone: [phone] Blood erythrocytes count (nu mber/volume)on 10-06-2022 RBC (Bld) [#/Vol] 3.62 10*6/uL 4.2-5.4 [facility] Work Phone: [phone] Blood hemoglobin measurement (mass/volume)on 10-06-2022 Hemoglobin (Bld) [Mass/Vol] 10.1 g/dL 12.0-15.0 [facility] Work Phone: Blood lymphocytes/100 leukoc yteson 10-06-2022 Lymphocytes/100 WBC (Bld) 16.6 % 19-41 [facility] Work Phone: Blood monocytes/100 leukocyt eson 10-06-2022 Monocytes/100 WBC (Bld) 8.1 % 0-10 [facility] Work Phone: [phone] Blood platelet mean volumeon 10-06-2022 Platelet mean volume (Bld) [Entitic vol] 10.5 fL 6.2-12.0 [facility] Work Phone: [phone] CBC W/Diff, Automatedon 09-11 Absolute Lymph 1.27 X10 3/uL Normal 0.83-4.51 [facility] Comment on above: Performed By: #### L 501.0900, L500.4050, M100.2200, L504.2610, L509.8000, L100.0100 #### [facility] [address] [place], [address] Absolute Neut 5.6 X10 3/uL Normal 2.0-7.7 [facility] Comment on above: Performed By: #### L 501.0900, L500.4050, M100.2200, L504.2610, L509.8000, L100.0100 #### [facility] [address] [place], [address] Basophils/100 WBC (Bld) 0.5 % Normal 0-1 [facility] Comment on above: Performed By: #### L 501.0900, L500.4050, M100.2200, L504.2610, L509.8000, L100.0100 #### [facility] [address] [place], [address] Eosinophils/100 WBC (Bld) 1.0 % Normal 0-5 [facility] Comment on above: Performed By: #### L 501.0900, L500.4050, M100.2200, L504.2610, L509.8000, L100.0100 #### [facility] [address] [place], [address] Erythrocyte distribution width (RBC) [Ratio] 14.1 % Normal 11.6-14.6 [facility] Comment on above: Performed By: #### L 501.0900, L500.4050, M100.2200, L504.2610, L509.8000, L100.0100 #### [facility] [address] [place], [address] Hematocrit (Bld) [Volume fraction] 31.7 % Low 37-47 [facility] Comment on above: Performed By: #### L 501.0900, L500.4050, M100.2200, L504.2610, L509.8000, L100.0100 #### [facility] [address] [place], [address] Hemoglobin (Bld) [Mass/Vol] 10.1 g/dL Low 12.0-15.0 [facility] Comment on above: Performed By: #### L 501.0900, L500.4050, M100.2200, L504.2610, L509.8000, L100.0100 #### [facility] [address] [place], [address] IG% 1.000 High 0.0-0.9 [facility] Comment on above: Result Comment: IG% - Immature Granulocytes (promyelocytes, myelocytes and metamyelocytes) > 1% indicates that a LEFT SHIFT is Present. Performed By: #### L 501.0900, L500.4050, M100.2200, L504.2610, L509.8000, L100.0100 #### [facility] [address] [place], [address] Lymphocytes/100 WBC (Bld) 16.6 % Low 19-41 [facility] Comment on above: Performed By: #### L 501.0900, L500.4050, M100.2200, L504.2610, L509.8000, L100.0100 #### [facility] [address] [place], [address] MCH (RBC) [Entitic mass] 27.9 pg Normal 27.0-32.0 [facility] Comment on above: Performed By: #### L 501.0900, L500.4050, M100.2200, L504.2610, L509.8000, L100.0100 #### [facility] [address] [place], [address] MCHC (RBC) [Mass/Vol] 31.9 g/dL Low 32-36 [facility] Comment on above: Performed By: #### L 501.0900, L500.4050, M100.2200, L504.2610, L509.8000, L100.0100 #### [facility] [address] [place], [address] MCV (RBC) [Entitic vol] 87.6 fL Normal 81-99 [facility] Comment on above: Performed By: #### L 501.0900, L500.4050, M100.2200, L504.2610, L509.8000, L100.0100 #### [facility] [address] [place], [address] Monocytes/100 WBC (Bld) 8.1 % Normal 0-10 [facility] Comment on above: Performed By: #### L 501.0900, L500.4050, M100.2200, L504.2610, L509.8000, L100.0100 #### [facility] [address] [place], [address] Neutrophils/100 WBC (Bld) 72.8 % High 47-70 [facility] Comment on above: Performed By: #### L 501.0900, L500.4050, M100.2200, L504.2610, L509.8000, L100.0100 #### [facility] [address] [place], [address] Nucleated RBC (Bld) [#/Vol] 0 10*3/uL Normal 0-5 [facility] Comment on above: Performed By: #### L 501.0900, L500.4050, M100.2200, L504.2610, L509.8000, L100.0100 #### [facility] [address] [place], [address] Platelet mean volume (Bld) [Entitic vol] 10.5 fL Normal 6.2-12.0 [facility] Comment on above: Performed By: #### L 501.0900, L500.4050, M100.2200, L504.2610, L509.8000, L100.0100 #### [facility] [address] [place], [address] Platelets (Bld) [#/Vol] 251 10*3/uL Normal 150-450 [facility] Comment on above: Performed By: #### L 501.0900, L500.4050, M100.2200, L504.2610, L509.8000, L100.0100 #### [facility] [address] [place], [address] RBC (Bld) [#/Vol] 3.62 10*6/uL Low 4.2-5.4 [facility] Comment on above: Performed By: #### L 501.0900, L500.4050, M100.2200, L504.2610, L509.8000, L100.0100 #### [facility] [address] [place], [address] RDW SD 44.7 fl High 35.1-43.9 [facility] Comment on above: Performed By: #### L 501.0900, L500.4050, M100.2200, L504.2610, L509.8000, L100.0100 #### [facility] [address] [place], [address] WBC (Bld) [#/Vol] 7.7 10*3/uL Normal 4.4-11.0 [facility] Comment on above: Performed By: #### L 501.0900, L500.4050, M100.2200, L504.2610, L509.8000, L100.0100 #### [facility] [address] [place], [address] Chlamydia trachomatis rRNA d etection by probe and target amplification methodon 10-06-2022 C. trachomatis rRNA SAE+probe Ql (Unsp spec) Negative Negative [facility] Work Phone: Comprehensive Metabolic Prof ilon 10-06-2022 Albumin [Mass/Vol] 2.3 g/dL Low 3.2-5.0 [facility] Comment on above: Order Comment: 1 Performed By: #### L 501.0900, L500.4050, M100.2200, L504.2610, L509.8000, L100.0100 #### [facility] [address] [place], [address] Albumin/Globulin [Mass ratio] 0.5 {ratio} Low 0.9-2.4 [facility] Comment on above: Order Comment: 1 Performed By: #### L 501.0900, L500.4050, M100.2200, L504.2610, L509.8000, L100.0100 #### [facility] [address] [place], [address] ALK P 127 U/L High 45-117 [facility] Comment on above: Order Comment: 1 Performed By: #### L 501.0900, L500.4050, M100.2200, L504.2610, L509.8000, L100.0100 #### [facility] [address] [place], [address] ALT [Catalytic activity/Vol] 28 U/L Normal 13-56 [facility] Comment on above: Order Comment: 1 Performed By: #### L 501.0900, L500.4050, M100.2200, L504.2610, L509.8000, L100.0100 #### [facility] [address] [place], [address] AST [Catalytic activity/Vol] 26 U/L Normal 15-37 [facility] Comment on above: Order Comment: 1 Performed By: #### L 501.0900, L500.4050, M100.2200, L504.2610, L509.8000, L100.0100 #### [facility] [address] [place], [address] Bilirubin [Mass/Vol] 0.20 mg/dL Normal 0.20-1.00 [facility] Comment on above: Order Comment: 1 Result Comment: For patients on eltrombopag therapy, use of Dimension [place] TBIL is not recommended. Performed By: #### L 501.0900, L500.4050, M100.2200, L504.2610, L509.8000, L100.0100 #### [facility] [address] [place], [address] BUN/CRE 13.6 RATIO Normal 10-20 [facility] Comment on above: Order Comment: 1 Performed By: #### L 501.0900, L500.4050, M100.2200, L504.2610, L509.8000, L100.0100 #### [facility] [address] [place], [address] CA,Total 8.8 mg/dL Normal 8.5-10.1 [facility] Comment on above: Order Comment: 1 Performed By: #### L 501.0900, L500.4050, M100.2200, L504.2610, L509.8000, L100.0100 #### [facility] [address] [place], [address] Chloride [Moles/Vol] 109 mmol/L High 98-107 [facility] Comment on above: Order Comment: 1 Performed By: #### L 501.0900, L500.4050, M100.2200, L504.2610, L509.8000, L100.0100 #### [facility] [address] [place], [address] CO2 [Moles/Vol] 23.0 mmol/L Normal 21.0-32.0 [facility] Comment on above: Order Comment: 1 Performed By: #### L 501.0900, L500.4050, M100.2200, L504.2610, L509.8000, L100.0100 #### [facility] [address] [place], [address] Creatinine [Mass/Vol] 0.52 mg/dL Low 0.55-1.02 [facility] Comment on above: Order Comment: 1 Result Comment: The validity of the calculated GFR GFRAA in patients over 70 years has not been determined. Clinical correlation is essential. Performed By: #### L 501.0900, L500.4050, M100.2200, L504.2610, L509.8000, L100.0100 #### [facility] [address] [place], [address] EST GFR - AA 171 mL/min Normal >60 [facility] Comment on above: Order Comment: 1 Result Comment: Afri can [place] GFR Calc Performed By: #### L 501.0900, L500.4050, M100.2200, L504.2610, L509.8000, L100.0100 #### [facility] [address] [place], [address] GAP 6 Normal 5-15 [facility] Comment on above: Order Comment: 1 Performed By: #### L 501.0900, L500.4050, M100.2200, L504.2610, L509.8000, L100.0100 #### [facility] [address] [place], [address] GFR/1.73 sq M.predicted among non-blacks MDRD (S/P/Bld) [Vol rate/Area] 142 mL/min/{1.73_m2} Normal >60 [facility] Comment on above: Order Comment: 1 Result Comment: Non- GFR Calc Performed By: #### L 501.0900, L500.4050, M100.2200, L504.2610, L509.8000, L100.0100 #### [facility] [address] [place], [address] Globulin (S) [Mass/Vol] 4.2 g/dL Normal 2.2-4.2 [facility] Comment on above: Order Comment: 1 Performed By: #### L 501.0900, L500.4050, M100.2200, L504.2610, L509.8000, L100.0100 #### [facility] [address] [place], [address] Glucose [Mass/Vol] 86 mg/dL Normal 74-106 [facility] Comment on above: Order Comment: 1 Performed By: #### L 501.0900, L500.4050, M100.2200, L504.2610, L509.8000, L100.0100 #### [facility] [address] [place], [address] Potassium [Moles/Vol] 3.8 mmol/L Normal 3.5-5.1 [facility] Comment on above: Order Comment: 1 Performed By: #### L 501.0900, L500.4050, M100.2200, L504.2610, L509.8000, L100.0100 #### [facility] [address] [place], [place], [id number] Sodium [Moles/Vol] 138 mmol/L Normal 136-145 [facility] Comment on above: Order Comment: 1 Performed By: #### L 501.0900, L500.4050, M100.2200, L504.2610, L509.8000, L100.0100 #### [facility] [address] [place], [place], [id number] T PROT 6.5 g/dL Normal 6.4-8.2 [facility] Comment on above: Order Comment: 1 Performed By: #### L 501.0900, L500.4050, M100.2200, L504.2610, L509.8000, L100.0100 #### [facility] [address] [place], [place], [id number] Urea nitrogen [Mass/Vol] 7 mg/dL Normal 7-18 [facility] Comment on above: Order Comment: 1 Performed By: #### L 501.0900, L500.4050, M100.2200, L504.2610, L509.8000, L100.0100 #### [facility] [address] [place], [place], [id number] Determination of erythrocyte mean corpuscular volume (MCV)on 10-06-2022 MCV (RBC) [Entitic vol] 87.6 fL 81-99 [facility] Work Phone: Hematocrit Auto (Bld) [Volum e fraction]on 10-06-2022 Hematocrit (Bld) [Volume fraction] 31.7 % 37-47 [facility] Work Phone: [id number] 10-06-2022 Syphilis Abs Non-Reactive Normal [facility] Comment on above: Performed By: #### M 100.2200 #### [facility] [address] [place], [address] LDHon 10-06-2022 LDH 124 U/L Normal 84-246 [facility] Comment on above: Order Comment: 1 Performed By: #### L 501.0900, L500.4050, M100.2200, L504.2610, L509.8000, L100.0100 #### [facility] [address] [place], [address] Laboratory - Chemistry and C hemistry - challengeon 10-06-2022 ALP [Catalytic activity/Vol] 127 U/L 45-117 [facility] Work Phone: [phone] ALT [Catalytic activity/Vol] 28 U/L 13-56 [facility] Work Phone: [phone] CO2 [Moles/Vol] 23.0 mmol/L 21.0-32.0 [facility] Work Phone: [phone] Globulin (S) [Mass/Vol] 4.2 g/dL 2.2-4.2 [facility] Work Phone: [phone] Urea nitrogen/Creatinine [Mass ratio] 13.6 mg/mg 10-20 [facility] Work Phone: [phone] Laboratory - Hematology and Cell countson 10-06-2022 Erythrocyte distribution width (RBC) [Entitic vol] 44.7 fL 35.1-43.9 [facility] Work Phone: [phone] Erythrocyte distribution width (RBC) [Ratio] 14.1 % 11.6-14.6 [facility] Work Phone: [phone] Immature granulocytes/100 WBC (Bld) 1.000 % 0.0-0.9 [facility] Work Phone: [phone] Comment on above: IG% - Immature Granu locytes (promyelocytes, myelocytes and metamyelocytes) > 1% indicates that a LEFT SHIFT is Present. MCH (RBC) [Entitic mass] 27.9 pg 27.0-32.0 [facility] Work Phone: Nucleated RBC/100 WBC (Bld) [Ratio] 0 % 0-5 [facility] Work Phone: Laboratory - Microbiology an d Antimicrobial susceptibilityon 10-06-2022 N. gonorrhoeae DNA SAE+probe Ql (Unsp spec) Negative Negative [facility] Work Phone: Comment on above: Performed at: =[address] [id number] Director: Lucy Camacho MD, Phone: [phone] MCHC Auto (RBC) [Mass/Vol]on 10-06-2022 MCHC (RBC) [Mass/Vol] 31.9 g/dL 32-36 [facility] Work Phone: No Panel Informationon 10-06 Estimated GFR (MDRD) Amer 171 mL/min >60 [facility] Work Phone: Comment on above: GFR Calc Estimated GFR (MDRD) Non-Af Amer 142 mL/min >60 [facility] Work Phone: Comment on above: Non- GFR Calc Platelets bldon 10-06-2022 Platelets (Bld) [#/Vol] 251 10*3/uL 150-450 [facility] Work Phone: Protein+Creatinine Ratio,Uri neon 10-06-2022 PROT:CRE RATIO 192 mg/g CRE Normal 0-200 [facility] Comment on above: Performed By: #### L 501.0900, L500.4050, M100.2200, L504.2610, L509.8000, L100.0100 #### [facility] [address] [place], [place], [id number] Protein (U) [Mass/Vol] 20.4 mg/dL High <11.9 [facility] Comment on above: Performed By: #### L 501.0900, L500.4050, M100.2200, L504.2610, L509.8000, L100.0100 #### [facility] [address] [place], [place], [id number] UR CREAT 106.00 mg/dL Normal NO RANGE EST. [facility] Comment on above: Performed By: #### L 501.0900, L500.4050, M100.2200, L504.2610, L509.8000, L100.0100 #### [facility] [address] [place], [address] Serum Treponema species anti body detectionon 10-06-2022 Treponema sp Ab Ql (S) Non-Reactive [facility] Work Phone: Serum or plasma albumin lucrecia urement (mass/volume)on 10-06-2022 Albumin [Mass/Vol] 2.3 g/dL 3.2-5.0 [facility] Work Phone: Serum or plasma albumin/glob ulin mass ratioon 10-06-2022 Albumin/Globulin [Mass ratio] 0.5 {ratio} 0.9-2.4 [facility] Work Phone: Serum or plasma calcium lucrecia urement (mass/volume)on 10-06-2022 Calcium [Mass/Vol] 8.8 mg/dL 8.5-10.1 [facility] Work Phone: Serum or plasma creatinine m easurement (mass/volume)on 10-06-2022 Creatinine [Mass/Vol] 0.52 mg/dL 0.55-1.02 [facility] Work Phone: Comment on above: The validity of the calculated GFR & GFRAA in patients over 70 years has not been determined. Clinical correlation is essential. Serum or plasma urea nitroge n measurement (mass/volume)on 10-06-2022 Urea nitrogen [Mass/Vol] 7 mg/dL 7-18 [facility] Work Phone: Thin prep Papanicolaou smear with manual screeningon 10-06-2022 Thin prep Papanicolaou smear with manual screening 26 U/L 15-37 [facility] Work Phone: Thin prep Papanicolaou smear with manual screening 6 5-15 [facility] Work Phone: Thin prep Papanicolaou smear with manual screening 124 U/L 84-246 [facility] Work Phone: Urine creatinine measurement (mass/volume)on 10-06-2022 Creatinine (U) [Mass/Vol] 106.00 mg/dL NO RANGE EST. [facility] Work Phone: Urine protein measurement (m ass/volume)on 10-06-2022 Protein (U) [Mass/Vol] 20.4 mg/dL 0.0-11.8 [facility] Work Phone: Urine protein/creatinine mas s ratioon 10-06-2022 Protein/Creatinine (U) [Mass ratio] 192 mg/g CRE 0-200 [facility] Work Phone: CV ECHO COMPLETE 2 CV ECHO COMPLETE [place] [address] Patient: HIEN SPARKS Phone#: : 1985 Age: 37 Gender: F Pt. Type: Out Account: [id number] Location: [facility] Ordering: ALISON ALEXANDER Exam Date: 09/22/2022/8:58 Family Phys: JUANY BENITO Charge Code: [id number] Physician: [place] Order #: [id number] Dose#: PROCEDURE: ECHOCARDIOGRAM WITH DOPPLER AND COLOR FLOW HISTORY: Patient is a 37-year-old female with history of murmur INDICATIONS: murmur COMPARISON: None. TECHNIQUE: A 2-D ultrasound, color spectral Doppler and M-mode evaluation of the heart and great vessels. PATIENT MEASUREMENTS: Height (in.): 62 BSA: 1.93 Weight (lbs.): 205 BP: 130/79 Molder Sweep: M MODE 2D MEASUREMENTS AND CALCULATIONS: LVIDd: 3.67 cm LVIDs: 2.75 cm IVSd: 1.03 cm LVPWd: 1.11 cm LVOT diam: 2.03 cm FS: 25.22 % Ao Root diam: 3.01 cm LA diam: 3.3 cm LA Volume Index: 17 mL/m2 LA A4 Area: 13.52 cm2 RA A4 Area: 7 cm2 RVDd: 2.54 cm TAPSE: 21 mm DOPPLER MEASUREMENTS AND CALCULATIONS MITRAL MV E MAX katie: 0.91 m/s MV A MAX katie: 1.04 m/s MV E-A ratio: 0.88 MVA VTI 4.17 cm2 Continued Report - Page 2 of 3 Patient: HIEN SPARKS Phone#: : 1985 Age: 37 Gender: F Pt. Type: Out Account: [id number] Location: [facility] Ordering: ALISON ALEXANDER Exam Date: 09/22/2022/8:58 Family Phys: JUANY JIGNA Charge Code: [id number] Physician: [place] Order #: [id number] Dose#: MV V2 max: 0.95 m/s MV max P.61 mm[Hg] MV V2 mean: 0.70 m/s MV mean P.10 mm[Hg] MV V2 VTI: 18.82 cm MV PHT: 36.51 ms MVA PHT 6.03 cm2 Lat Peak E' Katie 12 cm/sec Septal Peak E' KATIE 8 cm/sec E/E' lateral 7 E/E' medial 12 AORTIC Ao V2 max: 1.81 m/s Ao max P.14 mm[Hg] Ao V2 mean: 1.28 m/s Ao mean P.44 mm[Hg] Ao V2 VTI: 31.19 cm MARISELA (V Max): 2.65 cm2 MARISELA (VTI): 2.52 cm2 LV V1 Max 1.49 m/s LV V1 Max PG 8.83 mm[Hg] LV V1 Mean PG 4.70 mm[Hg] LV V1 mean 1.02 m/s LV V1 VTI 24.34 cm PULMONIC PA V2 Max 1.47 m/s PA Max PG 8.72 mm[Hg] TRICUSPID TR Max Katie 2.52 m/s TR max PG 25.44 mm[Hg] RVSP 28 mm Hg 2D/M-MODE AND COLOR FLOW LEFT VENTRICLE: Left ventricle is normal in size and thickness. Systolic ejection fraction is 55-60%. There are no regional wall motion abnormality seen. Normal diastolic function WALL MOTION: 1 - Basal anterior: Normal. 7 - Mid anterior: Normal. 13 - Apical anterior: Normal. 2 - Basal anteroseptal: Normal. 8 - Mid anteroseptal: Normal. 14 - Apical septal: Normal. 3 - Basal inferoseptal: Normal. 9 - Mid inferoseptal: Normal. 15 - Apical inferior: Normal. 4 - Basal inferior: Normal. 10-Mid inferior: Normal. 16 - Apical lateral: Normal. 5 - Basal inferolateral: Normal. 11-Mid inferolateral: Normal. Continued Report - Page 3 of 3 Patient: HIEN SPARKS Phone#: : 1985 Age: 37 Gender: F Pt. Type: Out Account: [id number] Location: [facility] Ordering: [facility] Exam Date: 09/22/2022/8:58 Family Phys: JUANY BENITO Charge Code: [id number] Physician: [place] Order #: [id number] Dose#: 6 - Basal anterolateral: Normal. 12-Mid anterolateral: Normal. RIGHT VENTRICLE: Right ventricle is normal in size systolic function LEFT ATRIUM: Left atrium is normal in size. RIGHT ATRIUM: Right atrium is normal in size. ATRIAL SEPTUM: Inadequately visualized MITRAL VALVE: Mitral valve appears normal in structure. There is trivial regurgitation seen TRICUSPID VALVE: Tricuspid valve appears normal in structure. There is trivial regurgitation seen AORTIC VALVE: Aortic valve is trileaflet. There is no regurgitation or stenosis seen PULMONIC VALVE: Pulmonic valve appears normal in structure. There is no significant regurgitation or stenosis seen AORTIC ROOT: Aortic root is normal in size. AORTIC ARCH: Aortic arch normal in size DESC THORACIC AORTA: Descending aorta is normal in size. Doppler shows normal systolic diastolic flow IVC/SVC: IVC is normal in size with more than 50% collapse of inspiration. Estimated right atrial pressure is 3 mm Hg. PULMONARY VEINS: Normal pulmonic vein flow PERICARDIUM: There is no pericardial effusion seen CONCLUSION: 1. Left ventricle is normal in size and thickness. Systolic ejection fraction is 55-60% with normal wall motion. 2. There are no significant valvular dysfunction seen 3. Right ventricle is normal size systolic function 4. Estimated right ventricular systolic pressure is 28 mm Hg. Dictated by: NICK JEFFERS MD on 09/22/2022 at 10:40 Approved by: NICK JEFFERS MD on 09/22/2022 at 10:46 Normal [facility] Absolute lymphocyte counton 08-21-2022 Lymphocytes Auto (Unsp spec) [#/Vol] 1.27 10*3/uL 0.83-4.51 [facility] Work Phone: Basophil percentageon 2021 Basophils/100 WBC (Bld) 0.2 % 0-1 [facility] Work Phone: Bilirubin [Mass/Vol] 0.20 mg/dL 0.20-1.00 [facility] Work Phone: Comment on above: For patients on eltr ombopag therapy, use of Dimension [place] TBIL is not recommended. Chloride [Moles/Vol] 105 mmol/L 98-107 [facility] Work Phone: Eosinophils/100 WBC (Bld) 0.7 % 0-5 [facility] Work Phone: Glucose [Mass/Vol] 129 mg/dL 74-106 [facility] Work Phone: Comment on above: Fasting Glucose resu lt greater than or equal to 126 mg/dL suggests DIABETES MELLITUS per A.D.A. criteria. Neutrophils (Bld) [#/Vol] 7.9 10*3/uL 2.0-7.7 [facility] Work Phone: [phone] Neutrophils/100 WBC (Bld) 80.2 % 47-70 [facility] Work Phone: Potassium [Moles/Vol] 3.6 mmol/L 3.5-5.1 [facility] Work Phone: [phone] Protein [Mass/Vol] 7.3 g/dL 6.4-8.2 [facility] Work Phone: Sodium [Moles/Vol] 137 mmol/L 136-145 [facility] Work Phone: WBC (Bld) [#/Vol] 9.8 10*3/uL 4.4-11.0 [facility] Work Phone: Blood erythrocytes count (nu mber/volume)on 08-21-2022 RBC (Bld) [#/Vol] 3.51 10*6/uL 4.2-5.4 [facility] Work Phone: Blood hemoglobin measurement (mass/volume)on 08-21-2022 Hemoglobin (Bld) [Mass/Vol] 10.0 g/dL 12.0-15.0 [facility] Work Phone: Blood lymphocytes/100 leukoc yteson 08-21-2022 Lymphocytes/100 WBC (Bld) 12.9 % 19-41 [facility] Work Phone: Blood monocytes/100 leukocyt eson 08-21-2022 Monocytes/100 WBC (Bld) 5.1 % 0-10 [facility] Work Phone: Blood platelet mean volumeon 08-21-2022 Platelet mean volume (Bld) [Entitic vol] 10.1 fL 6.2-12.0 [facility] Work Phone: CBC W/Diff, Automatedon 08-11 Absolute Lymph 1.27 X10 3/uL Normal 0.83-4.51 [facility] Comment on above: Performed By: #### M 100.0 #### [facility] [address] [place], [address] Absolute Neut 7.9 X10 3/uL High 2.0-7.7 [facility] Comment on above: Performed By: #### M 100.2200 #### [facility] [address] [place], [address] Basophils/100 WBC (Bld) 0.2 % Normal 0-1 [facility] Comment on above: Performed By: #### M 100.2200 #### [facility] [address] [place], [address] Eosinophils/100 WBC (Bld) 0.7 % Normal 0-5 [facility] Comment on above: Performed By: #### M 100.2200 #### [facility] [address] [place], [address] Erythrocyte distribution width (RBC) [Ratio] 13.3 % Normal 11.6-14.6 [facility] Comment on above: Performed By: #### M 100.2200 #### [facility] [address] [place], [address] Hematocrit (Bld) [Volume fraction] 31.1 % Low 37-47 [facility] Comment on above: Performed By: #### M 100.2200 #### [facility] [address] [place], [address] Hemoglobin (Bld) [Mass/Vol] 10.0 g/dL Low 12.0-15.0 [facility] Comment on above: Performed By: #### M 100.2200 #### [facility] [address] [place], [address] IG% 0.900 Normal 0.0-0.9 [facility] Comment on above: Result Comment: IG% - Immature Granulocytes (promyelocytes, myelocytes and metamyelocytes) > 1% indicates that a LEFT SHIFT is Present. Performed By: #### M 100.2200 #### [facility] [address] [place], [address] Lymphocytes/100 WBC (Bld) 12.9 % Low 19-41 [facility] Comment on above: Performed By: #### M 100.2200 #### [facility] [address] [place], [address] MCH (RBC) [Entitic mass] 28.5 pg Normal 27.0-32.0 [facility] Comment on above: Performed By: #### M 100.2200 #### [facility] [address] [place], [address] MCHC (RBC) [Mass/Vol] 32.2 g/dL Normal 32-36 [facility] Comment on above: Performed By: #### M 100.2200 #### [facility] [address] [place], [address] MCV (RBC) [Entitic vol] 88.6 fL Normal 81-99 [facility] Comment on above: Performed By: #### M 100.2200 #### [facility] [address] [place], [address] Monocytes/100 WBC (Bld) 5.1 % Normal 0-10 [facility] Comment on above: Performed By: #### M 100.2200 #### [facility] [place], [address] Neutrophils/100 WBC (Bld) 80.2 % High 47-70 [facility] Comment on above: Performed By: #### M 100.2200 #### [facility] [address] [place], [address] Nucleated RBC (Bld) [#/Vol] 0 10*3/uL Normal 0-5 [facility] Comment on above: Performed By: #### M 100.2200 #### [facility] [address] [place], [address] Platelet mean volume (Bld) [Entitic vol] 10.1 fL Normal 6.2-12.0 [facility] Comment on above: Performed By: #### M 100.2200 #### [facility] [address] [place], [address] Platelets (Bld) [#/Vol] 297 10*3/uL Normal 150-450 [facility] Comment on above: Performed By: #### M 100.2200 #### [facility] [facility] [address] [place], [address] RBC (Bld) [#/Vol] 3.51 10*6/uL Low 4.2-5.4 [facility] Comment on above: Performed By: #### M 100.2199 #### [facility] [address] [place], [address] RDW SD 43.4 fl Normal 35.1-43.9 [facility] Comment on above: Performed By: #### M 100.2199 #### [facility] [address] [place], [address] WBC (Bld) [#/Vol] 9.8 10*3/uL Normal 4.4-11.0 [facility] Comment on above: Performed By: #### M 100.2199 #### [facility] [address] [place], [address] Comprehensive Metabolic Prof [facility] 08-21-2022 Albumin [Mass/Vol] 2.7 g/dL Low 3.2-5.0 [facility] Comment on above: Performed By: #### M 100.2199 #### [facility] [address] [place], [address] Albumin/Globulin [Mass ratio] 0.6 {ratio} Low 0.9-2.4 [facility] Comment on above: Performed By: #### M 100.2199 #### [facility] [address] [place], [address] ALK P 102 U/L Normal 45-117 [facility] Comment on above: Performed By: #### M 100.2199 #### [facility] [address] [place], [address] ALT [Catalytic activity/Vol] 34 U/L Normal 13-56 [facility] Comment on above: Performed By: #### M 100.220 #### [facility] [address] [place], [address] AST [Catalytic activity/Vol] 29 U/L Normal 15-37 [facility] Comment on above: Performed By: #### M 100.2200 #### [facility] [address] [place], [address] Bilirubin [Mass/Vol] 0.20 mg/dL Normal 0.20-1.00 [facility] Comment on above: Result Comment: For patients on eltrombopag therapy, use of Dimension [place] TBIL is not recommended. Performed By: #### M 100.2200 #### [facility] [address] [place], [address] BUN/CRE 13.3 RATIO Normal 10-20 [facility] Comment on above: Performed By: #### M 100.2200 #### [facility] [address] [place], [address] CA,Total 9.7 mg/dL Normal 8.5-10.1 [facility] Comment on above: Performed By: #### M 100.2200 #### [facility] [address] [place], [address] Chloride [Moles/Vol] 105 mmol/L Normal 98-107 [facility] Comment on above: Performed By: #### M 100.2200 #### [facility] [address] [place], [address] CO2 [Moles/Vol] 23.0 mmol/L Normal 21.0-32.0 [facility] Comment on above: Performed By: #### M 100.2200 #### [facility] [address] [place], [address] Creatinine [Mass/Vol] 0.60 mg/dL Normal 0.55-1.02 [facility] Comment on above: Result Comment: The validity of the calculated GFR GFRAA in patients over 70 years has not been determined. Clinical correlation is essential. Performed By: #### M 100.2200 #### [facility] [address] [place], [address] EST GFR - AA 143 mL/min Normal >60 [facility] Comment on above: Result Comment: Afri can [place] GFR Calc Performed By: #### M 100.2200 #### [facility] [address] [place], [address] GAP 9 Normal 5-15 [facility] Comment on above: Performed By: #### M 100.2200 #### [facility] [address] [place], [address] GFR/1.73 sq M.predicted among non-blacks MDRD (S/P/Bld) [Vol rate/Area] 118 mL/min/{1.73_m2} Normal >60 [facility] Comment on above: Result Comment: Non- GFR Calc Performed By: #### M 100.2200 #### [facility] [address] [place], [address] Globulin (S) [Mass/Vol] 4.6 g/dL High 2.2-4.2 [facility] Comment on above: Performed By: #### M 100.2200 #### [facility] [address] [place], [address] Glucose [Mass/Vol] 129 mg/dL High 74-106 [facility] Comment on above: Result Comment: Fast ing Glucose result greater than or equal to 126 mg/dL suggests DIABETES MELLITUS per A.D.A. criteria. Performed By: #### M 100.2200 #### [facility] [address] [place], [address] Potassium [Moles/Vol] 3.6 mmol/L Normal 3.5-5.1 [facility] Comment on above: Performed By: #### M 100.2200 #### [facility] [address] [place], [address] Sodium [Moles/Vol] 137 mmol/L Normal 136-145 [facility] Comment on above: Performed By: #### M 100.2200 #### [facility] [address] [place], [address] T PROT 7.3 g/dL Normal 6.4-8.2 [facility] Comment on above: Performed By: #### M 100.2200 #### [facility] [address] [place], [place], [address] Urea nitrogen [Mass/Vol] 8 mg/dL Normal 7-18 [facility] Comment on above: Performed By: #### M 100.2200 #### [facility] [address] [place], [place], [address] Determination of erythrocyte mean corpuscular volume (MCV)on 08-21-2022 MCV (RBC) [Entitic vol] 88.6 fL 81-99 [facility] Work Phone: Gestational diabetes screen 1-hour screen with 50g oral glucose loadon 08-21-2022 Glucose 1 Hr post 50 g glucose PO [Mass/Vol] 129 mg/dL 70-140 [facility] Work Phone: Glucose Challenge Gest 1H 50 compa 08-21-2022 GLU GEST 50g 1H 129 mg/dL Normal 70-140 [facility] Comment on above: Performed By: #### M 100.2200 #### [facility] [address] [place], [place], [address] Hematocrit Auto (Bld) [Volum e fraction]on 08-21-2022 Hematocrit (Bld) [Volume fraction] 31.1 % 37-47 [facility] Work Phone: Laboratory - Chemistry and C hemistry - challengeon 08-21-2022 ALP [Catalytic activity/Vol] 102 U/L 45-117 [facility] Work Phone: ALT [Catalytic activity/Vol] 34 U/L 13-56 [facility] Work Phone: CO2 [Moles/Vol] 23.0 mmol/L 21.0-32.0 [facility] Work Phone: Globulin (S) [Mass/Vol] 4.6 g/dL 2.2-4.2 [facility] Work Phone: Urea nitrogen/Creatinine [Mass ratio] 13.3 mg/mg 10-20 [facility] Work Phone: Laboratory - Hematology and Cell countson 08-21-2022 Erythrocyte distribution width (RBC) [Entitic vol] 43.4 fL 35.1-43.9 [facility] Work Phone: Erythrocyte distribution width (RBC) [Ratio] 13.3 % 11.6-14.6 [facility] Work Phone: Immature granulocytes/100 WBC (Bld) 0.900 % 0.0-0.9 [facility] Work Phone: Comment on above: IG% - Immature Granu locytes (promyelocytes, myelocytes and metamyelocytes) > 1% indicates that a LEFT SHIFT is Present. MCH (RBC) [Entitic mass] 28.5 pg 27.0-32.0 [facility] Work Phone: Nucleated RBC/100 WBC (Bld) [Ratio] 0 % 0-5 [facility] Work Phone: MCHC Auto (RBC) [Mass/Vol]on 08-21-2022 MCHC (RBC) [Mass/Vol] 32.2 g/dL 32-36 [facility] Work Phone: No Panel Informationon 08-21 Estimated GFR (MDRD) Amer 143 mL/min >60 [facility] Work Phone: Comment on above: GFR Calc Estimated GFR (MDRD) Non-Af Amer 118 mL/min >60 [facility] Work Phone: Comment on above: Non- GFR Calc Platelets bldon 08-21-2022 Platelets (Bld) [#/Vol] 297 10*3/uL 150-450 [facility] Work Phone: Serum or plasma albumin lucrecia urement (mass/volume)on 08-21-2022 Albumin [Mass/Vol] 2.7 g/dL 3.2-5.0 [facility] Work Phone: Serum or plasma albumin/glob ulin mass ratioon 08-21-2022 Albumin/Globulin [Mass ratio] 0.6 {ratio} 0.9-2.4 [facility] Work Phone: Serum or plasma calcium lucrecia urement (mass/volume)on 08-21-2022 Calcium [Mass/Vol] 9.7 mg/dL 8.5-10.1 [facility] Work Phone: Serum or plasma creatinine m easurement (mass/volume)on 08-21-2022 Creatinine [Mass/Vol] 0.60 mg/dL 0.55-1.02 [facility] Work Phone: Comment on above: The validity of the calculated GFR & GFRAA in patients over 70 years has not been determined. Clinical correlation is essential. Serum or plasma urea nitroge n measurement (mass/volume)on 08-21-2022 Urea nitrogen [Mass/Vol] 8 mg/dL 7-18 [facility] Work Phone: Thin prep Papanicolaou smear with manual screeningon 08-21-2022 Thin prep Papanicolaou smear with manual screening 29 U/L 15-37 [facility] Work Phone: Thin prep Papanicolaou smear with manual screening 9 5-15 [facility] Work Phone: Type AND Screenon 08-21-2022 Ab SCREEN GEL Negative Normal [facility] Comment on above: Order Comment: PN Performed By: #### M 100.2200 #### [facility] [address] [place], [place], [address] ABO and Rh group Nom (Bld) Blood group A Rh(D) positive Normal [facility] Comment on above: Order Comment: PN Performed By: #### M 100.2200 #### [facility] [address] [place], [address] Urine Cultureon 07-23-2022 URC Mixed Gram Positive Organisms [place] Count 25,000-50,000 MIXC Mixed contaminants. Submit a new specimen if indicated. Normal [facility] Comment on above: Performed By: #### M 100.2200 #### [facility] [address] [place], [address] EMERGENCY REPORTon EMERGENCY REPORT [facility] EMERGENCY ROOM REPORT NAME ACCOUNT SEX AGE ADMIT DISCHARGE PT MED. RECORD# NUMBER DATE DATE TYPE HIEN SPARKS [id number] F 36 06/14/22 06/14/22 3 [address]07 ROOM: ER DATE OF : 1985 DICTATING PHYSICIAN: Danny Fuller ADDENDUM DIAGNOSTIC DATA: CT scan of the chest was negative for pulmonary embolism. Lungs were clear. Aorta is normal. EMERGENCY DEPARTMENT COURSE AND TREATMENT: The patient was placed on amoxicillin 500 mg one p.o. t.i.d., dispense #30 with no refill. I did give her a dose here prior to discharge. She is to follow up with Dr. Alejandra Bautista, her [facility] physician, in 3 days for the urine culture results. Her address is [address] [place] [address], [address], [place], [place], [address]. Phone number is [phone]. If the patient's symptoms become worse or any other problems develop, return here to the Emergency Department. The patient was discharged in a clinically stable condition. Nurse's notes reviewed. DIAGNOSES: 1. Sinusitis. 2. Bilateral ear infection. 3. Urinary tract infection. 4. Sarcoidosis, by history. Dictated By: Danny Fuller DO 06/14/22 22:36 JOB #: [id number] Transcribed By: [email or web address] 06/15/22 13:16 Electronically signed by: E-Sign: Dr. Danny Fuller D.O. 06/18/22 00:20 Page 1 of 1 HIEN SPARKS Emergency Room Report Normal [facility] EMERGENCY REPORT [facility] EMERGENCY ROOM REPORT NAME ACCOUNT SEX AGE ADMIT DISCHARGE PT MED. RECORD# NUMBER DATE DATE TYPE HIEN SPARKS [id number] F 36 06/14/22 06/14/22 3 [id number] ROOM: ER DATE OF : 1985 DICTATING PHYSICIAN: Danny Fuller TIME SEEN: 7 p.m. HISTORY OF PRESENT ILLNESS: This is a 36-year-old white female seen here earlier by Dr. Black complaining of shortness of breath. She has had an occasional cough. Sometimes it is productive of clear sputum. Sometimes it is nonproductive. She has complained of some nasal congestion and has complained of some frontal head pressure which is not worse with forward bending, but her upper teeth do hurt at times. She complains of a headache, and both of her ears hurt as well. She has been cold, but she has not taken her temperature so she does not know if she has been running a fever. She went for a walk with her daughter on Wednesday, and she got very short of breath and had to sit down for awhile. She has denied any chest pain. She is 17 weeks' . Her PCP is Alison Alexander. Dr. Warren is her [employer]iz[employer] consultant in [place], [place], and Dr. Alejandra Bautista at [place] is her [facility], who took over Dr. Wade's office in [place]. PAST MEDICAL HISTORY: The patient has a past medical history of sarcoidosis. She was on prednisone and then on another medication, but they took her off that since she has been . She does have a history of anxiety. PAST SURGICAL HISTORY: Past surgeries include a previous by Dr. Wade about 10 years ago when she had her daughter. SOCIAL HISTORY: She is not a smoker, past or present. She denies any alcohol or drug use. She lives at home with family. REVIEW OF SYSTEMS: She denies any fevers or sweats. She complains of possibly some chills. She does complain of bilateral ear pain and nasal congestion. She does complain of a sinus headache. She denies any chest pain. She does admit to shortness of breath and a cough occasionally productive of clear sputum. She denies any wheezing. She denies any abdominal pain, nausea, vomiting, diarrhea, or constipation. She does complain of a frontal region headache. She denies any numbness, unsteady gait, weakness, neck or back pain, joint pain, skin rash or swelling. Further review of systems is negative. PHYSICAL EXAMINATION: VITAL SIGNS: Temperature is 99, pulse 107, respirations 16, blood pressure 131/72, pulse oximetry 98% on room air, and weight 200 pounds. GENERAL: The patient is alert and oriented x3. She presently appears in no acute distress. She is pleasant and cooperative. She makes eye contact. She speaks in full sentences. HEENT: Head appears atraumatic. Pupils are equal and reactive to light. Red reflexes are intact bilaterally. Extraocular muscles are intact. No conjunctival injection. No scleral icterus or lid edema. EARS: TMs are intact bilaterally. Both TMs are somewhat erythematous but not bulging. NOSE: Nose exhibits no rhinorrhea or epistaxis. She does have some mild tenderness over the bilateral maxillary Page 1 of 2 SPARKS HIEN L Emergency Room Report HIEN SPARKS : 1985 sinuses but no facial swelling. MOUTH: Mucous membranes are moist. Some mild pharyngeal erythema is noted with some postnasal drainage but no exudates. Uvula is midline and elevates. NECK: Neck is supple. Trachea is midline. No JVD or lymphadenopathy. No posterior cervical tenderness. No nuchal rigidity. LUNGS: Lungs are clear to auscultation anteriorly but somewhat diminished bibasilar. No accessory muscle use is noted at rest. CV: Heart rate and rhythm are regular without murmur. ABDOMEN: Abdomen is soft, gravid and nontender with normoactive bowel sounds x4 quadrants. No guarding or rigidity. No rebound. BACK: Back exhibits no midline or paraspinal region tenderness. No increased paraspinal muscle rigidity. Negative Andrea's sign. EXTREMITIES: No edema or cyanosis. Peripheral pulses are intact. No motor or sensory deficits are noted. 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 SKIN: Skin is warm and dry. No diaphoresis or rash. NEUROLOGIC: Neurologic examination shows the patient to be alert and oriented x4. No motor or sensory deficits are noted. Normal speech. No conversational dyspnea at rest. DIAGNOSTIC DATA: White count was 8.7, hemoglobin 10.7, hematocrit 31.8, and platelet count 252,000. D-dimer was elevated at 324. Sodium is 136, potassium 3.4, chloride 101, CO2 of 23.3, BUN 2, creatinine 0.6, and glucose 83. GFR is greater than 60. AST is 28, ALT 39, alkaline phosphatase 75, and total bilirubin 0.3. Anion gap is normal at 15. Urinalysis does show 100 of leukocyte esterase with negative nitrites. There are 6-10 white cells per high-powered field and 3+ bacteria. I did send that for a urine culture, and I did give the patient Keflex 500 mg p.o. here. Her COVID swab came back negative. EMERGENCY DEPARTMENT COURSE AND TREATMENT: We (more content not included)... Normal [facility] EMERGENCY REPORTon 2 EMERGENCY REPORT [facility] EMERGENCY ROOM REPORT NAME ACCOUNT SEX AGE ADMIT DISCHARGE PT MED. RECORD# NUMBER DATE DATE TYPE HIEN SPARKS [id number] F 36 06/14/22 06/14/22 3 00001 ROOM: ER DATE OF : 1985 DICTATING PHYSICIAN: Jim Black HISTORY OF PRESENT ILLNESS: The patient has had sinus congestion since Wednesday, a headache, chills, and body aches. She is 17 weeks , and presented to the emergency department because she was not feeling well. She has had no recent travel, trauma or surgeries. She is . PAST MEDICAL HISTORY: Unremarkable other than anxiety. PAST SURGICAL HISTORY: She had a . SOCIAL HISTORY: She does not smoke or drink. REVIEW OF SYSTEMS: Ten systems reviewed and negative except as mentioned above. PHYSICAL EXAMINATION: VITAL SIGNS: She is afebrile. Pulse 107, respirations 16, blood pressure 131/72, and pulse oximetry 98% on room air. HEENT: Head is normocephalic and atraumatic. Eyes: Pupils are equal, round, and reactive to light. Extraocular muscles are intact. Nares are patent. Throat has adequate oral moisture. Uvula is midline. NECK: Neck is supple without petechiae or rash. HEART: Heart is regular rate and rhythm without murmur. S1 equals S2. No S3 or S4 appreciated. LUNGS: Lungs are clear to auscultation bilaterally. No rales, rhonchi, or retractions. ABDOMEN: Abdomen is soft, nontender, and nondistended. SKIN: Skin is warm and dry. EMERGENCY DEPARTMENT COURSE AND TREATMENT: She is . PLAN/DISPOSITION: She will be endorsed over to Dr. Fuller at shift change. Dictated By: Jim Black DO 06/14/22 19:40 JOB #: [id number] Transcribed By: am 06/15/22 11:49 Electronically signed by: JOHNATHON Black DO Page 1 of 2 HIEN SPARKS Emergency Room Report [facility] HIEN L : 1985 06/16/22 01:07 Page 2 of 2 HIEN SPARKS Emergency Room Report Normal [facility] CBC + DIFFon 06-14-2022 Baso # 0.00 x10EE3/UL Normal 0.00 - 0.10 [facility] Comment on above: Performed By: #### 2 84055 #### [facility],[address] [place] [address] Basophils/100 WBC (Bld) 0.4 % Normal 0.0 - 2.0 [facility] Comment on above: Performed By: #### 2 39233 #### [facility],[address] [place] [address] CBC + DIFF Normal [facility] Comment on above: Result Comment: CBC- COMPLETE BLOOD COUNT Performed By: #### 2 08167 #### [facility],[address] [place] [address] EO # 0.10 x10EE3/UL Normal 0.00 - 0.50 [facility] Comment on above: Performed By: #### 2 32436 #### [facility],[address] [place] [address] Eosinophils/100 WBC (Bld) 1.1 % Normal 0.0 - 7.0 [facility] Comment on above: Performed By: #### 2 05174 #### [facility],[address] [place] [address] Erythrocyte distribution width (RBC) [Ratio] 13.4 % Normal 12.0 - 15.6 [facility] Comment on above: Performed By: #### 2 53874 #### [facility],[address] [place] [address] Hematocrit (Bld) [Volume fraction] 31.8 % Low 34.0 - 46.0 [facility] Comment on above: Performed By: #### 2 54629 #### [facility],[address] [place] [address] Hemoglobin (Bld) [Mass/Vol] 10.7 g/dL Low 12.0 - 16.0 [facility] Comment on above: Performed By: #### 2 42790 #### [facility],[address] [place] [address] Lymph # 0.60 x10EE3/UL Low 0.80 - 2.80 [facility] Comment on above: Performed By: #### 2 98594 #### [facility],[address] [place] [address] Lymphocytes/100 WBC (Bld) 7.1 % Low 20.0 - 45.0 [facility] Comment on above: Performed By: #### 2 26090 #### [facility],[address] [place] [address] MANUAL DIFF N/A Normal [facility] Comment on above: Performed By: #### 2 64365 #### [facility],[address] [place], [place] [address] MCH (RBC) [Entitic mass] 29 pg Normal 27 - 33 [facility] Comment on above: Performed By: #### 2 29057 #### [facility],[address] [place], [place] [id number] MCHC 34 X10 3 Normal 32 - 36 [facility] Comment on above: Performed By: #### 2 45967 #### [facility],[address] [place], [place] [id number] MCV (RBC) [Entitic vol] 88 fL Normal 80 - 99 [facility] Comment on above: Performed By: #### 2 83137 #### [facility],[address] [place] [address] Mcdowell # 0.50 x10EE3/UL Normal 0.20 - 1.00 [facility] Comment on above: Performed By: #### 2 01610 #### [facility],[address] [place] [address] MONOS % 6.2 % Normal 0.0 - 10.0 [facility] Comment on above: Performed By: #### 2 99721 #### [facility],[address] [place] [address]8552 Morphology Shaan (Bld) [Interp] N/A Normal [facility] Comment on above: Result Comment: {CD] Performed By: #### 2 03453 #### [facility],[address] [place] [address]673 Neut # 7.40 x10EE3/UL High 1.50 - 7.10 [facility] Comment on above: Performed By: #### 2 87352 #### [facility],[address] [place] [address]288 Neutrophils/100 WBC (Bld) 85.2 % High 46.0 - 76.0 [facility] Comment on above: Performed By: #### 2 16151 #### [facility],[address] [place] [address]145 PLATELET 252 x10EE3/UL Normal 150 - 450 [facility] Comment on above: Performed By: #### 2 05674 #### [facility],[address] [place] [address]46 Platelet mean volume (Bld) [Entitic vol] 8.2 fL Normal 6.6 - 10.5 [facility] Comment on above: Result Comment: AUTO MATED DIFFERENTIAL Performed By: #### 2 18059 #### [facility],[address] [place] [address]253 RBC 3.62 x 10EE6/UL Low 4.10 - 5.30 [facility] Comment on above: Performed By: #### 2 92549 #### [facility],[address] [place] [address]34 WBC 8.7 x 10EE3/UL Normal 4.5 - 10.8 [facility] Comment on above: Performed By: #### 2 69892 #### [facility],[address] [place] [address]93 CMP with eGFRon 06-14-2022 AGE 36 years Normal [facility] Comment on above: Performed By: #### 2 54570 #### [facility],[address] [place] [address]59 Albumin [Mass/Vol] 2.8 g/dL Low 3.4 - 5.0 [facility] Comment on above: Performed By: #### 2 27965 #### [facility],[address] [place] [address]292 Albumin/Globulin [Mass ratio] 0.6 {ratio} Low 0.9 - 1.6 [facility] Comment on above: Performed By: #### 2 80869 #### [facility],[address] [place] [address]0559 ALK PHOS 75 U/L Normal 46 - 116 [facility] Comment on above: Performed By: #### 2 46870 #### [facility],[address] [place] [address]132 ALT [Catalytic activity/Vol] 39 U/L Normal 14 - 59 [facility] Comment on above: Performed By: #### 2 01357 #### [facility],[address] [place] [address]349 Anion gap [Moles/Vol] 15 mmol/L Normal 10 - 20 [facility] Comment on above: Performed By: #### 2 41780 #### [facility] [facility],[address] [place] [address] 86416 AST [Catalytic activity/Vol] 28 U/L Normal 13 - 39 [facility] Comment on above: Performed By: #### 2 78621 #### [facility],[address] [place] [address] 14155 B/C RATIO 3 ratio Normal 0 - 30 [facility] Comment on above: Performed By: #### 2 03173 #### [facility],[address] [place] [address] 30416 Bilirubin [Mass/Vol] 0.3 mg/dL Normal 0.2 - 1.0 [facility] Comment on above: Performed By: #### 2 30353 #### [facility],[address] [place], [place] [id number] Calcium [Mass/Vol] 8.3 mg/dL Low 8.5 - 10.1 [facility] Comment on above: Performed By: #### 2 41411 #### [facility],[address] [place], [place] [id number] Chloride [Moles/Vol] 101 mmol/L Normal 98 - 107 [facility] Comment on above: Performed By: #### 2 14674 #### [facility],[address] [place] [address] 06682 CMP with eGFR Normal [facility] Comment on above: Result Comment: COMP REHENSIVE METABOLIC PANEL Performed By: #### 2 49381 #### [facility],[address] [place] [address] 12924 CO2 [Moles/Vol] 23.3 mmol/L Normal 21.0 - 32.0 [facility] Comment on above: Performed By: #### 2 15769 #### [facility],[address] [place] [address] 63517 Creatinine [Mass/Vol] 0.60 mg/dL Normal 0.55 - 1.02 [facility] Comment on above: Performed By: #### 2 08370 #### [facility],[address] [place] [address] 56337 GFR/1.73 sq M.predicted among non-blacks MDRD (S/P/Bld) [Vol rate/Area] mL/min/{1.73_m2} Normal 60 - 999 [facility] Comment on above: Performed By: #### 2 08183 #### [facility],[address] [place] [address] 07120 Result Comment: ACCO RDING TO THE NATIONAL KIDNEY DISEASE EDUCATION PROGRAM(NKDE), A NORMAL eGFR IS A VALUE GREATER THAN OR EQUAL TO 60 ML/MIN/1.73 SQ METERS. CHRONIC KIDNEY DISEASE: <60mL/MIN/1.73 SQ METERS KIDNEY FAILURE: <15mL/MIN/1.73 SQ METERS THIS TEST SHOULD ONLY BE USED FOR PATIENTS 18 YEARS OF AGE AND OLDER. Globulin (S) [Mass/Vol] 4.6 g/dL High 1.5 - 3.8 [facility] Comment on above: Performed By: #### 2 25294 #### [facility],[address] [place] [address] 58965 Glucose [Mass/Vol] 83 mg/dL Normal 74 - 106 [facility] Comment on above: Performed By: #### 2 53781 #### [facility],[address] [place] [address] 17103 Potassium [Moles/Vol] 3.4 mmol/L Low 3.5 - 5.1 [facility] Comment on above: Performed By: #### 2 62035 #### [facility],[address] [place] [address] 71738 Protein [Mass/Vol] 7.4 g/dL Normal 6.4 - 8.2 [facility] Comment on above: Performed By: #### 2 64457 #### [facility],[address] [place] [address] 62397 Sodium [Moles/Vol] 136 mmol/L Normal 136 - 145 [facility] Comment on above: Performed By: #### 2 37109 #### [facility],[address] [place] [address] 23449 Urea nitrogen [Mass/Vol] 2 mg/dL Low 7 - 18 [facility] Comment on above: Performed By: #### 2 61614 #### [facility],[address] [place] [address] 18502 CORONAVIRUS (SARS) ANTIGEN T ESTon 06-14-2022 EXTERNAL QC DONE? YES Normal [facility] Comment on above: Performed By: #### 2 74370 #### [facility],[address] [place] [address] INTERNAL CONTROL PASS Normal [facility] Comment on above: Performed By: #### 2 62978 #### [facility],[address] [place] [address] 30862 SARS ANTIGEN Negative Normal NORMAL: NEGATIVE [facility] Comment on above: Performed By: #### 2 49190 #### [facility],[address] [place], [place] [id number] SEND TO ? NO Normal [facility] Comment on above: Result Comment: SARS -CoV-2 THIS TEST IS BEING USED UNDER THE FDA EUA PROCEDURE. THIS ASSAY HAS BEEN VALIDATED AT [facility] FOR USE WITH NASAL AND NASOPHARYNGEAL SWAB SPECIMENS. INTERPRETIVE DATA TEST RESULTS SHOULD ALWAYS BE CONSIDERED IN THE CONTEXT OF CLINICAL OBSERVATIONS AND EPIDEMIOLOGICAL DATA IN MAKING FINAL DIAGNOSIS AND PATIENT MANAGEMENT DECISIONS. PATIENT MANAGEMENT SHOULD FOLLOW CURRENT CDC GUIDELINES. THE KELLY SARS ANTIGEN KORI DOES NOT DIFFERENTIATE BETWEEN SARS-CoV & SARS-CoV-2. A POSITIVE TEST RESULT INDICATES THE PRESENCE OF SARS-CoV-2 NUCLEOCAPSID PROTEIN ANTIGEN, AND THE PATIENT IS INFECTED WITH THE VIRUS AND PRESUMED TO BE CONTAGIOUS. A NEGATIVE TEST RESULT FOR THIS TEST MEANS THAT SARS-CoV-2 NUCLEOCAPSID PROTEIN ANTIGEN WAS NOT PRESENT IN THE SPECIMEN ABOVE THE LIMIT OF DETECTION. HOWEVER, A NEGATIVE RESULT DOES NOT RULE OUT COVID-19 AND SHOULD NOT BE USED THE SOLE BASIS FOR TREATMENT OR PATIENT MANAGEMENT DECISIONS. A NEGATIVE RESULT DOES NOT EXCLUDE THE POSSIBILITY OF COVID-19. NEGATIVE RESULTS, FROM PATIENTS WITH SYMPTOM ONSET BEYOND FIVE DAYS, SHOULD BE TREATED PRESUMPTIVE AND CONFIRMATION WITH A MOLECULAR ASSAY, IF NECESSARY, FOR PATIENT MANAGEMENT, MAY BE PERFORMED. WHEN DIAGNOSTIC TESTING IS NEGATIVE, THE POSSIBLILTY OF A FALSE NEGATIVE RESULT SHOULD BE CONSIDERED IN THE CONTEXT OF A PATIENT'S RECENT EXPOSURES AND THE PRESENCE OF CLINICAL SIGNS AND SYMPTOMS CONSISTENT WITH COVID-19. THE POSSIBILITY OF A FALSE NEGATIVE RESULT SHOULD ESPECIALLY BE CONSIDERED IF THE PATIENT'S RECENT EXPOSURES OR CLINICAL PRESENTATION INDICATE THAT COVID-19 IS LIKELY, AND DIAGNOSTIC TESTS FOR OTHER CAUSES OF ILLNESS (e.g., OTHER RESPIRATORY ILLNESS) ARE NEGATIVE. IF COVID-19 IS STILL SUSPECTED BASED ON EXPOSURE HISTORY TOGETHER WITH OTHER CLINICAL FINDINGS, RE-TESTING SHOULD BE CONSIDERED BY HEALTHCARE PROVIDERS IN CONSULTATION WITH PUBLIC HEALTH AUTHORITIES. Performed By: #### 2 [id number] #### [facility],[address] [place] [address] CT CHEST (PE PROTOCOL)on CT CHEST (PE PROTOCOL) [place] [address] Patient: HIEN SPARKS Phone#: : 1985 Age: 36 Gender: F Pt. Type: ER Account: [id number] Location: [facility] Ordering: DANNY FULLER Exam Date: 06/14/2022/21:27 Family Phys: JUANY BENITO Charge Code: [id number] Physician: [place] Order #: [id number] DLP Dose#: PROCEDURE: CT CHEST WITH CONTRAST FOR PE COMPARISON: [facility], [place], [employer] W/O CON, 04/22/2020, 13:06. INDICATIONS: Embolism. TECHNIQUE: After obtaining the patient's consent, CT images were obtained with non-ionic intravenous contrast material. Multi-planar images were created to optimize visualization of vascular anatomy with MPR/MIPS and 3D imaging. All CT scans at this facility use dose modulation, iterative reconstruction, and/or weight based dosing when appropriate to reduce radiation dose to as low as reasonably achievable. IV CONTRAST: Omnipaque 350,100ml TOTAL DOSE: 9.4 CTDIvol(mGy) FINDINGS: VASCULATURE: No pulmonary embolism in the main or proximal pulmonary arteries. AORTA: Normal. No aneurysm or dissection. LUNGS: There are dependent changes. No focal acute pulmonary parenchymal abnormality JOHN: Normal. No mass or adenopathy. MEDIASTINUM: Normal. No mass or adenopathy. CARDIAC: Normal. No enlargement, pericardial thickening, or significant calcification. PLEURA: Normal. No mass or effusion. CHEST WALL: Normal. No mass or axillary adenopathy. LIMITED ABDOMEN: Diffuse fatty infiltration of the liver. BONES: Normal. No bony lesion or fracture. OTHER: Negative. CONCLUSION: 1. No pulmonary embolism. No acute pulmonary parenchymal abnormality. 2. Infiltration of the [place] [address] Patient: HIEN SPARKS Phone#: : 1985 Age: 36 Gender: F Pt. Type: ER Account: [id number] Location: [facility] Ordering: DANNY FULLER Exam Date: 06/14/2022/21:27 Family Phys: JUANY BENITO Charge Code: [id number] Physician: [place] Order #: [id number] DLP Dose#: Dictated by: Maureen Collier MD on 06/15/2022 at 22:21 Approved by: Maureen Collier MD on 06/15/2022 at 22:30 Normal [facility] CULTURE URINEon 06-14-2022 CULTURE URINE CULTURE URINE _URINE CULTURE_ M I C R O B I O L O G Y R E P O R T FINAL --------- Antimicrobial Susceptibility and Organism Identification Report Specimen Number : [id number] Requested : 06/14/22 Specimen Source : URINE Collected : 06/14/22 20:10 [place] [facility] : EMERGENCY ROOM Received : 06/14/22 20:10 Requesting Physician : ALINA Patient/Specimen Tests and Comments Specimen Comments FINAL REPORT: URINE COLONY COUNT: 50,000-100,000 CFU/CC >OR=TO 3 COLONY TYPES PROBABLE CONTAMINATION Tech : __ Source : URINE ID # : [id number] FINAL Report Date : / / : Collected : 06/14/22 20:10 06/17/22.BKO. 06/16/22.1419.KLS. 06/17/22.BKO.COMPLE TE Normal [facility] Comment on above: Performed By: #### 2 22810 #### [facility],[address] [place] [address] 00083 D-DIMER, QUANTITATIVEon 09-0 D-DIMER QUANT 324 ng/ml High 0 - 230 [facility] Comment on above: Performed By: #### 2 38252 #### [facility],[address] [place] [address] 51691 D-DIMER, QUANTITATIVE Normal [facility] Comment on above: Result Comment: SOFIA T D-DIMER Performed By: #### 2 90042 #### [facility],[address] [place] [address] 57310 URINALYSISon 06-14-2022 Amorphous NONE Normal [facility] Comment on above: Performed By: #### 2 46690 #### [facility],[address] [place] [address] 09022 Bacteria 3+ Normal [facility] Comment on above: Performed By: #### 2 73265 #### [facility],[address] [place] [address] 94920 Bilirubin Ql (U) Negative Normal NORMAL: NEGATIVE [facility] Comment on above: Performed By: #### 2 21658 #### [facility],[address] [place] [address] 38284 Casts NONE Normal [facility] Comment on above: Performed By: #### 2 84635 #### [facility],[address] [place] [address] 51890 Clarity (U) clear Normal NORMAL: CLEAR [facility] Comment on above: Performed By: #### 2 56301 #### [facility],[address] [place] [address] 50938 Color (U) p.yel Normal NORMAL: YELLOW [facility] Comment on above: Performed By: #### 2 24430 #### [facility],[address] [place] [address] 81044 Crystals LM Nom (Urine sed) NONE Normal [facility] Comment on above: Performed By: #### 2 70857 #### [facility],[address] [place] [address] 58050 Epi Cells MANY Normal [facility] Comment on above: Performed By: #### 2 93713 #### [facility],[address] [place] [address] 84344 Glucose Ql (U) NORM Normal NORMAL: NORMAL [facility] Comment on above: Performed By: #### 2 00054 #### [facility],[address] [place] [address] 88577 Hemoglobin Ql (U) Negative Normal NORMAL: NEGATIVE [facility] Comment on above: Performed By: #### 2 52669 #### [facility],[address] [place] [address],[facility] 21665 Ketone Negative Normal NORMAL: NEGATIVE [facility] Comment on above: Performed By: #### 2 93328 #### [facility],[address] [place] [address] 05199 Leukocytes 100 Abnormal NORMAL: NEGATIVE [facility] Comment on above: Performed By: #### 2 77716 #### [facility],[address] [place] [address] 67597 Mucous NONE Normal [facility] Comment on above: Performed By: #### 2 36010 #### [facility],[address] [place] [address] 54779 Nitrite Ql (U) Negative Normal NORMAL: NEGATIVE [facility] Comment on above: Performed By: #### 2 90990 #### [facility],[address] [place] [address] 72389 pH (U) 7 [pH] Normal NORMAL: 5.0-8.0 [facility] Comment on above: Performed By: #### 2 21360 #### [facility],[address] [place] [address] 15455 Protein Ql (U) Negative Normal NORMAL: NEGATIVE [facility] Comment on above: Performed By: #### 2 87076 #### [facility],[address] [place] [address] 70135 Rbc NONE Normal 0-3/hpf [facility] Comment on above: Performed By: #### 2 70654 #### [facility],[address] [place] [address] Sp [place] 1.005 Low NORMAL: 1.010-1.030 [facility] Comment on above: Performed By: #### 2 96719 #### [facility],[address] [place] [address] Specimen Type Void Normal [facility] Comment on above: Performed By: #### 2 74618 #### [facility],[address] [place] [address] Urinalysis dipstick W Reflex Microscopic panel (U) SEE BELOW Normal [facility] Comment on above: Result Comment: MICR OSCOPIC Performed By: #### 2 55591 #### [facility],[address] [place] [address] Urobilinog NORM Normal NORMAL: NORMAL [facility] Comment on above: Performed By: #### 2 96051 #### [facility],[address] [place] [address] Wbc 6-10 Normal 0-5/hpf [facility] Comment on above: Performed By: #### 2 94899 #### [facility],[address] [place] [address] Yeast 1+ Normal [facility] Comment on above: Performed By: #### 2 25791 #### [facility],[address] [place] [address] No Panel Informationon 05-08 Negative Normal [employer] Non-Reactive Normal [facility], Inc.; [employer] Positive Abnormal [facility], Inc.; [employer]ace [employer] [facility], Inc. Laboratory - Chemistry and C hemistry - challengeon 05-07-2022 Bilirubin Ql (U) Negative Normal [facility], Inc.; [employer] [facility], Inc. Ketones Ql (U) Negative Normal [facility], Inc.; [employer]. pH (U) 5.5 [pH] Normal [employer].; [employer]. Specific gravity (U) [Rel density] >1.030 Normal [employer]; [employer]ent Urobilinogen Qn (U) 0.2 mg/dL Normal [facility] [employer].; [employer]. Laboratory - Hematology and Cell countson 05-07-2022 Hemoglobin Ql (U) trace, hemolyzed Abnormal [facility] [employer].; [employer]. Laboratory - Specimen inform ationon 05-07-2022 Appearance (U) cloudy Abnormal Bryant [employer]; [employer]. Color (U) yellow Normal [employer]; [employer]. Laboratory - Urinalysison Glucose Test strip (U) [Mass/Vol] Negative Normal [employer]; [employer]. Leukocyte esterase Test strip Ql (U) small Abnormal [employer]; [employer]. Nitrite Ql (U) Negative Normal [facility] [employer]; [employer]. Protein Ql (U) Negative Normal [facility] [employer].; [employer]. No Panel Informationon 05-07 Not detected Normal [employer]; [employer] Detected Abnormal [employer].; [employer]andtalent. SEE NOTE Normal [employer].; [employer]. Swab Normal [employer].; [employer]. Laboratory - Blood bankon ABO group Nom (Bld) A Normal [employer]; [employer]. Rh Nom (Amn fld) Positive Normal [facility] [employer].; [employer]. Laboratory - Chemistry and C hemistry - challengeon 03-30-2022 Bilirubin Ql (U) Negative Normal Bryant [employer]; [employer]. Ketones Ql (U) 15 mg/dL Abnormal [facility].; Red Devil [employer]. pH (U) 6.5 [pH] Normal [facility].; Red Devil [employer] [facility] HospitalTrelligence Protein (24H U) [Mass/Vol] 27.90 mg/dL Abnormal 0.00 - 10.00 mg/dL [facility].; [employer] Specific gravity (U) [Rel density] >=1.030 Normal [facility].; Bryant [employer]Manager Urobilinogen Qn (U) 0.2 mg/dL Normal [facility].; BryantOrder Mapper. Laboratory - Hematology and Cell countson 03-30-2022 Hemoglobin Ql (U) Negative Normal [facility].; [employer]. Laboratory - Specimen inform ationon 03-30-2022 Appearance (U) clear Normal [facility].; [employer] Devil [employer] Color (U) yellow Normal [facility].; BryantOrder Mapper Laboratory - Urinalysison Glucose Test strip (U) [Mass/Vol] Negative Normal [facility].; BryantOrder Mapper. Leukocyte esterase Test strip Ql (U) Negative Normal [facility].; BryantReclip.It, [employer]. Nitrite Ql (U) Negative Normal [facility].; BryantOrder Mapper. Protein Ql (U) trace Normal [facility] HospitalTrelligence.; BryantOrder Mapper. No Panel Informationon 03-30 9.6 Normal 3.8 - 10.8 [employer].; BryantReclip.It, [employer]. 4.26 {Million/uL} Normal 3.80 - 5.1 0 {Million/uL} [employer].; BryantReclip.It, [employer]. 12.8 g/dL Normal 11.7 - 15.5 g/dL [employer].; BryantRe[employer].It, [employer]. 38.4 % Normal 35.0 - 45.0 % [employer] Force[employer].; BryantOrder Mapper. 90.1 fL Normal 80.0 - 100.0 fL [employer], [employer].; [employer], Inc. 30.0 pg Normal 27.0 - 33.0 pg [employer].; [employer], Inc. 33.3 g/dL Normal 32.0 - 36.0 g/dL [employer].; [employer], Inc. 13.0 % Normal 11.0 - 15.0 % [employer].; [employer], [employer]. 310 Normal 140 - 400 [employer], [employer].; [employer], Inc. 10.1 fL Normal 7.5 - 12.5 fL [employer], [employer].; [employer], Inc. 7037 {cells/uL} Normal 1500 - 7800 {cells/uL} [employer], [employer].; [employer], Inc. 1594 {cells/uL} Normal 850 - 3900 {cells/uL} [employer].; [employer], [employer]. 826 {cells/uL} Normal 200 - 950 {cells/uL} [employer], [employer].; [employer], [employer]. 96 {cells/uL} Normal 15 - 500 {cells/uL} [employer].; [employer], [employer]. 48 {cells/uL} Normal 0 - 200 {cells/uL} [employer], [employer].; [employer], [employer]. 73.3 % Normal [employer].; [employer], [employer]. 16.6 % Normal [employer], [employer].; [employer], [employer]. 8.6 % Normal [employer], [employer].; [employer], [employer]. 1.0 % Normal BryantRe[employer]It, Inc.; [employer], Inc. 0.5 % Normal [employer], [employer].; [employer], Inc. Detected Normal [employer], [employer].; [employer], Inc. Non-Reactive Normal Bryant [employer], Inc.; [employer], Inc. 1.53 {Index} Normal [employer], Inc.; [employer], Inc. 89 mg/dL Normal 65 - 99 mg/dL BryantReclip.It, Inc.; [employer], [employer]. 8 mg/dL Normal 7 - 25 mg/dL [facility], Inc.; [employer] Devil [employer] [facility], Inc. 0.68 mg/dL Normal 0.50 - 1.10 mg/dL [facility], Inc.; [employer] Devil [employer] [facility], Inc. 112 Normal [facility], Inc.; [facility], Inc. 130 Normal [facility], Inc.; [facility], Inc. NOT APPLICABLE Normal 6 - 22 [facility], [facility].; [facility], Inc. 137 mmol/L Normal 135 - 146 mmol/L [facility], Inc.; [employer] [facility], Inc. 3.9 mmol/L Normal 3.5 - 5.3 mmol/L [facility], Inc.; [facility], Inc. 105 mmol/L Normal 98 - 110 mmol/L [facility], [facility].; [employer] [facility], Inc. 18 mmol/L Abnormal 20 - 32 mmol/L [facility], Inc.; [facility], Inc. 9.5 mg/dL Normal 8.6 - 10.2 mg/dL [facility], [facility].; [employer] [facility], Inc. 7.7 g/dL Normal 6.1 - 8.1 g/dL [facility], [facility].; [facility], Inc. 4.1 g/dL Normal 3.6 - 5.1 g/dL [facility], [facility].; [employer] [facility], Inc. 3.6 Normal 1.9 - 3.7 [facility], Inc.; [employer] [place] [employer] [facility], Inc. 1.1 Normal 1.0 - 2.5 [facility], [facility].; [employer] [place] [employer] [facility], Inc. 0.3 mg/dL Normal 0.2 - 1.2 mg/dL [employer] [facility], [facility].; [employer] [facility], Inc. 77 U/L Normal 31 - 125 U/L [facility], Inc.; Red Devil [employer], Inc. 18 U/L Normal 10 - 30 U/L [place] [employer] [facility], Inc.; [employer] Devil [employer], Inc. 28 U/L Normal 6 - 29 U/L [facility], Inc.; [employer], Inc. 0.49 {mIU/L} Normal [facility], Inc.; [employer] Devil [employer], Inc. 275.03 mg/dL Normal [facility]; [facility] 0.10 mg/dL Normal 0.00 - 10.00 mg/dL [facility].; [facility]. Laboratory - Hematology and Cell countson 03-17-2022 Hemoglobin (Bld) [Mass/Vol] 12.8 g/dL Normal 11.5 - 14.2 g/dL [facility].; [facility]. Angiotens. Conv Enzon 2020 Angiotens. Conv Enz 40 U/L Normal <52 [facility] Comment on above: Performed By: #### A CE #### [facility] [address] [place] [phone] Angiotens. Conv Enzon 2020 Angiotens. Conv Enz 41 U/L Normal <52 [facility] Comment on above: Performed By: #### A CE #### [facility] [place] [phone] [employer]iot[employer]. Conv Enzon 2020 Angiotens. Conv Enz 44 U/L Normal <52 [facility] Comment on above: Performed By: #### A CE #### [facility] [address] [place] [phone] [employer]iot[employer]. Conv Enzon 2020 Angiotens. Conv Enz 34 U/L Normal <52 [facility] Comment on above: Performed By: #### A CE #### [facility] [place] [phone] Angiotens. Conv Enzon 2020 Angiotens. Conv Enz 21 U/L Normal <52 [facility] Comment on above: Performed By: #### A CE #### [facility] [address] [place] [phone] Angiotens. Conv Enzon 2020 Angiotens. Conv Enz 51 U/L Normal <52 [facility] Comment on above: Performed By: #### A CE #### [facility] Forensic Logic Routine Lab [address] [address] No Panel Informationon 02-06 SEE NOTE Normal [facility]; [facility]. Angiotens. Conv Enzon 2020 Angiotens. Conv Enz 62 U/L High <52 [facility] Comment on above: Performed By: #### A CE #### [facility] Forensic Logic Routine Lab [address] [address] No Panel Informationon 12-12 1.0 ng/dL Normal 0.8 - 1.8 ng/dL [facility]; [facility] 0.84 {mIU/L} Normal [facility]; [facility] 2.8 pg/mL Normal 2.3 - 4.2 pg/mL [facility]; [facility]. Angiotens. Conv Enzon 2020 Angiotens. Conv Enz 60 U/L High <52 [facility] Reference [facility] Comment on above: Performed By: #### A CE #### [facility] Forensic Logic Routine Lab [facility] [place] [id number] Angiotens. Conv Enzon 2020 Angiotens. Conv Enz 51 U/L Normal <52 [facility] Comment on above: Performed By: #### A CE #### [facility] Forensic Logic Routine Lab [address] [id number] Angiotens. Conv Enzon 2019 Angiotens. Conv Enz 80 U/L High <52 [facility] Reference [facility] Comment on above: Performed By: #### A CE #### [facility] Forensic Logic Routine Lab [facility] [place] [id number] Laboratory - Chemistry and C hemistry - challengeon 09-20-2020 Bilirubin Ql (U) Negative Normal [facility].; [facility]. Ketones Ql (U) trace Normal [facility].; [employer]and[employer]. pH (U) 7.0 [pH] Normal [employer].; [employer] M[employer]. Specific gravity (U) [Rel density] 1.020 Normal [place] [employer].; [employer]. Urobilinogen Qn (U) 0.2 mg/dL Normal [facility].; BryantOrder Mapper. Laboratory - Hematology and Cell countson 09-20-2020 Hemoglobin Ql (U) Negative Normal [employer] [place] [employer].; [employer]. Laboratory - Specimen inform ationon 09-20-2020 Appearance (U) clear Normal [facility].; [employer] Mapper. Color (U) yellow Normal [place] [employer].; [employer]. Laboratory - Urinalysison Glucose Test strip (U) [Mass/Vol] Negative Normal [place] [employer].; [employer]. Leukocyte esterase Test strip Ql (U) Negative Normal [employer].; [employer]. Nitrite Ql (U) Negative Normal [facility].; [employer]andtalent. Protein Ql (U) Negative Normal [facility].; [employer]and[employer]. GC/Chlamydia Amp, Uron 09-19 Chlamydia Amplif, Ur TOLD Normal [facility] Reference Lab Comment on above: Performed By: #### U GCCT #### [facility] [address] [id number] GC Amplification, Ur TOLD Normal [facility] Reference Lab Comment on above: Performed By: #### U GCCT #### [facility] [address] [address] Laboratory - Chemistry and C hemistry - challengeon 09-16-2020 Bilirubin Ql (U) Negative Normal [facility].; [employer] Mapper. Glucose [Mass/Vol] NORM Normal [employer].; [employer]. Ketones Ql (U) 40 mg/dL Abnormal [facility] [employer].; jobandtalent. pH (U) 6.0 [pH] Normal [employer].; [employer]. Specific gravity (U) [Rel density] 1.025 Normal [place] [employer].; [employer]. Urobilinogen Qn (U) 0.2 mg/dL Normal [facility].; [employer]Order Mapper. Laboratory - Hematology and Cell countson 09-16-2020 Hemoglobin Ql (U) trace, hemolyzed Abnormal H [facility] [employer].; [employer]andtalent Laboratory - Microbiology an d Antimicrobial susceptibilityon 09-16-2020 Bacteria identified Cx Nom (U) CULTURE URINE Normal [place] [employer].; [employer]. Laboratory - Specimen inform ationon 09-16-2020 Appearance (U) clear Normal [facility] [employer]; [employer]andtalent. Color (U) yellow Normal [employer].; [employer]. Laboratory - Urinalysison Glucose Test strip (U) [Mass/Vol] Negative Normal [employer].; [employer]. Leukocyte esterase Test strip Ql (U) Negative Normal [employer].; [employer], [employer]. Nitrite Ql (U) Negative Normal [facility].; jobandtalent. Protein Ql (U) Negative Normal [facility].; jobandtalent. Urinalysis dipstick W Reflex Microscopic panel (U) URINALYSIS Normal [employer].; [employer]and[employer]. No Panel Informationon 09-16 UNSPECIFIED Normal [employer].; [employer]andtalent. yellow Normal [employer].; jobandtalent. clear Normal [employer].; jobandtalent. 6 Normal [employer].; jobandtalent. Negative Normal [employer].; jobandtalent. 50 Abnormal [employer].; [employer] Mapper. NORM Normal [facility].; [employer] Mapper. 1.010 Normal [facility].; [employer] Mapper. NOT INDICATED Normal [facility].; BryantOrder Mapper Unable to assay. Specimen too old to perform test. Normal [facility] [employer].; [employer] Mapper. Work Phone: Laboratory - Chemistry and C hemistry - challengeon 08-22-2020 Bilirubin Ql (U) Negative Normal [facility] [employer].; [employer] Mapper. Ketones Ql (U) trace Normal [facility].; BryantOrder Mapper. pH (U) 6.5 [pH] Normal [facility].; [employer] M[employer]. Specific gravity (U) [Rel density] >=1.030 Normal [facility].; [employer] M[employer]. Urobilinogen Qn (U) 0.2 mg/dL Normal [facility].; [employer] Mapper. Laboratory - Hematology and Cell countson 08-22-2020 Hemoglobin Ql (U) Negative Normal [facility].; [employer] Mapper. Laboratory - Specimen inform ationon 08-22-2020 Appearance (U) clear Normal [facility].; [employer] Mapper. Color (U) yellow Normal [facility] [employer].; [employer] Mapper. Laboratory - Urinalysison Glucose Test strip (U) [Mass/Vol] Negative Normal [facility] [employer].; [employer] Mapper. Leukocyte esterase Test strip Ql (U) Negative Normal [facility] [employer].; [employer] M[employer]. Nitrite Ql (U) Negative Normal [facility] [employer].; [employer] Mapper. Protein Ql (U) Negative Normal [facility].; BryantOrder Mapper. No Panel Informationon 08-22 SEE NOTE Normal [facility] [employer].; [employer] Mapper. Laboratory - Chemistry and C hemistry - challengeon 05-06-2020 Bilirubin Ql (U) Negative Normal [facility].; BryantOrder Mapper. Ketones Ql (U) Negative Normal [facility].; [employer] Mapper. pH (U) 7.5 [pH] Normal [facility].; [employer] Mapper. Specific gravity (U) [Rel density] >1.030 Normal [facility].; BryantOrder Mapper Urobilinogen Qn (U) 0.2 mg/dL Normal [facility].; [employer] Mapper. Laboratory - Hematology and Cell countson 05-06-2020 Hemoglobin Ql (U) trace, hemolyzed Abnormal H [facility]Live[facility] [email or web address]; [place] [employer] [facility]. Laboratory - Specimen inform ationon 05-06-2020 Appearance (U) clear Normal [facility] [employer]; [employer] M[employer]. Color (U) yellow Normal [place] [employer].; [employer] Mapper. Laboratory - Urinalysison Glucose Test strip (U) [Mass/Vol] Negative Normal [place] [employer].; [employer]. Leukocyte esterase Test strip Ql (U) Negative Normal [employer].; [employer]. Nitrite Ql (U) Negative Normal [facility] [employer].; [employer] Mapper. Protein Ql (U) Negative Normal [facility].; BryantOrder Mapper. No Panel Informationon 05-06 <0.90 Normal [employer].; [employer]. SEE NOTE Normal [place] [employer].; [employer]. No Panel Informationon 04-25 56 mmol/L Normal [place] [employer].; [employer]. Work Phone: 1150 ML Normal [employer].; [employer]. Work Phone: 64.4 {mmol/24hr} Normal 40.0 - 220 {mmol/24hr} [employer].; [employer] Work Phone: 8 mg/dL Normal [facility]; [facility] HospitalTrell[facility]ence Work Phone: 92 {mg/24hr} Normal 30 - 150 {mg/24hr} [facility]; [place] [employer] [facility] Work Phone: Laboratory - Chemistry and C hemistry - challengeon 04-23-2020 Basic metabolic 2000 panel BMP with eGFR Normal [facility]; [place] [employer] [facility] Hospital[facility] Work Phone: Calcium [Mass/Vol] 9.2 mg/dL Normal 8.6 - 10. 2 mg/dL [facility]; [place] [employer] [facility] Work Phone: Chloride [Moles/Vol] 97 mmol/L Abnormal 98 - 10 7 mmol/L [facility]; [place] [employer] [facility] Hospital[facility] Work Phone: CO2 [Moles/Vol] 27.4 mmol/L Normal 21.0 - 31.0 mmol/L [facility]; [place] [employer] [facility] Work Phone: Creatinine [Mass/Vol] 0.7 mg/dL Normal 0.6 - 1.2 mg/dL [facility]; [place] [employer] [facility] Work Phone: CRP [Mass/Vol] 10.72 mg/dL Abnormal 0.00 - 1.00 mg/dL [facility]; [employer] Work Phone: Ferritin [Mass/Vol] 145 ng/mL Normal 10 - 291 ng/mL [facility]; [employer] Work Phone: GFR/1.73 sq M.predicted among blacks MDRD (S/P/Bld) [Vol rate/Area] mL/min/{1.73_m2} Normal 60 - 999 {ML/MINUTE} [facility]; [place] [employer] [facility] Work Phone: GFR/1.73 sq M.predicted MDRD (S/P/Bld) [Vol rate/Area] mL/min/{1.73_m2} Normal 60 - 999 {ML/MINUTE} [facility]; [facility] Work Phone: Glucose [Mass/Vol] NORM Normal [facility]; [facility] Work Phone: Glucose [Mass/Vol] 145 mg/dL Abnormal 74 - 106 mg/dL [facility]; [facility] Work Phone: Iron [Mass/Vol] 14 ug/dL Abnormal 50 - 170 ug/dL [facility]; [facility] Work Phone: Iron binding capacity [Mass/Vol] 294 ug/dL Normal 250 - 450 ug/dL [facility]; [facility] Work Phone: Potassium [Moles/Vol] 2.9 mmol/L Abnormal 3.5 - 5.1 mmol/L [facility]; [facility] Work Phone: Protein (24H U) [Mass/Vol] 37.00 mg/dL Abnormal 0.00 - 10.00 mg/dL [facility]; [facility] Work Phone: Sodium [Moles/Vol] 137 mmol/L Normal 136 - 145 mmol/L [facility]; [facility] Work Phone: Urate [Mass/Vol] 6.3 mg/dL Normal 2.3 - 6.6 mg/dL [facility]; [facility] Work Phone: Urea nitrogen [Mass/Vol] 11 mg/dL Normal 6 - 20 mg/dL [facility]; [facility] Work Phone: Laboratory - Drug toxicology on 04-23-2020 Vancomycin peak [Mass/Vol] 280 ug/dL Normal 155 - 355 ug/dL [facility]; [facility] Work Phone: Laboratory - Hematology and Cell countson 04-23-2020 Basophils (Bld) [#/Vol] 0.10 {3/UL} Normal 0.00 - 0.10 {3/UL} [facility]; [facility] Work Phone: Basophils/100 WBC (Bld) 0.7 % Normal 0.0 - 2.0 % [facility]; [facility] Work Phone: CBC W Auto Differential panel (Bld) CBC + DIFF Normal [facility]; [place] [employer] [facility] Work Phone: Eosinophils (Bld) [#/Vol] 0.10 {3/UL} Normal 0.00 - 0.50 {3/UL} [facility]; [place] [employer] [facility] Work Phone: Eosinophils/100 WBC (Bld) 0.8 % Normal 0.0 - 7.0 % [facility]; [place] [employer] [facility] Work Phone: Erythrocyte distribution width (RBC) [Ratio] 13.5 % Normal 12.0 - 15.6 % [facility]; [facility] Work Phone: ESR (Bld) [Velocity] 101 mm/h Abnormal 0 - 30 mm/h [facility]; [facility] Work Phone: Hematocrit (Bld) [Volume fraction] 35.0 % Normal 34.0 - 46.0 % [facility]; [facility] Work Phone: Hemoglobin (Bld) [Mass/Vol] 12.0 g/dL Normal 12.0 - 16.0 g/dL [facility]; [facility] HospitalLive[facility] Inc[employer] Work Phone: Lymphocytes (Bld) [#/Vol] 0.80 {3/UL} Normal 0.80 - 2.80 {3/UL} [facility].; [employer]. Work Phone: [phone] Lymphocytes/100 WBC (Bld) 7.8 % Abnormal 20.0 - 45.0 % [facility].; [employer]. Work Phone: MCH (RBC) [Entitic mass] 28 pg Normal 27 - 33 pg [place] [employer] [facility].; [employer] Mapper. Work Phone: [phone] MCHC (RBC) [Mass/Vol] 34 {X10_3} Normal 32 - 3 6 {X10_3} [facility].; [employer]. Work Phone: MCV (RBC) [Entitic vol] 83 fL Normal 80 - 99 fL [facility].; [employer] M[employer]. Work Phone: Monocytes (Bld) [#/Vol] 0.70 {3/UL} Normal 0.20 - 1.00 {3/UL} [employer].; [employer]. Work Phone: Monocytes/100 WBC (Bld) 6.9 % Normal 0.0 - 10.0 % [facility].; [employer]. Work Phone: Neutrophils (Bld) [#/Vol] 8.40 {3/UL} Abnormal 1.50 - 7.10 {3/UL} [employer].; [employer]. Work Phone: Neutrophils/100 WBC (Bld) 83.8 % Abnormal 46.0 - 76.0 % [facility].; [employer]. Work Phone: Platelet mean volume (Bld) [Entitic vol] 7.8 fL Normal 6.6 - 10.5 fL [employer] [place] [employer].; [employer]. Work Phone: Platelets (Bld) [#/Vol] 393 {3/UL} Normal 150 - 450 {3/UL} [employer].; [employer]. Work Phone: RBC (Bld) [#/Vol] 4.22 {6/UL} Normal 4.10 - 5.3 0 {6/UL} [employer].; [employer]. Work Phone: WBC (Bld) [#/Vol] 10.0 {3/UL} Normal 4.5 - 10.8 {3/UL} [employer].; [employer]. Work Phone: Laboratory - Urinalysison Urinalysis dipstick W Reflex Microscopic panel (U) URINALYSIS Normal [employer].; [employer]. Work Phone: No Panel Informationon 04-23 N/A Normal [employer].; [employer]. Work Phone: 273.6 mg/dL Normal [employer].; [employer]. Work Phone: Void Normal [employer].; [employer], [employer]. Work Phone: kumar Normal [employer].; [employer]. Work Phone: clear Normal [employer].; [employer]. Work Phone: 6 Normal [employer].; [employer]. Work Phone: 30 Abnormal [employer].; [employer] Work Phone: Negative Normal [employer].; [employer]tal[employer]. Work Phone: 50 Abnormal [employer].; [employer]. Work Phone: NORM Normal [place] [employer].; [employer] M[employer]. Work Phone: [phone] 1.015 Normal [facility].; [employer], [employer]. Work Phone: SEE BELOW Normal [facility].; jobandtalent. Work Phone: 1-5 Normal 0 - 5 [facility].; BryantReclip[employer] Work Phone: 0-5 Normal 0 - 3 [place] [employer] [facility].; BryantReclip.It, [employer]. Work Phone: NONE Normal [facility].; [employer], [employer]. Work Phone: 1+ Normal [facility].; [employer] Mapper. Work Phone: OCC Normal [place] [employer] [facility].; [employer]. Work Phone: 16 mmol/L Normal 10 - 20 mmol/L [place] [employer] [facility].; [employer]tal[employer]. Work Phone: 35 {years} Normal [place] [employer] [facility].; [employer]andtal[employer]. Work Phone: 5 % Abnormal 20 - 50 % [facility].; [employer]. Work Phone: 208 mg/dL Abnormal 86 - 166 mg/dL [facility] [employer] [facility].; [employer]. Work Phone: 43 mg/dL Normal 13 - 46 mg/dL [employer].; [employer]. Work Phone: 8.4 g/dL Abnormal 6.3 - 8.0 g/dL [facility].; [employer]. Work Phone: 3.56 {gm/dL} Normal 3.37 - 4.23 {gm/dL} [facility].; [place] [employer] [facility]. Work Phone: 0.33 {gm/dL} Abnormal 0.18 - 0.31 {gm/dL} [facility].; [facility], [facility]. Work Phone: 1.47 {gm/dL} Abnormal 0.52 - 0.97 {gm/dL} [facility].; [place] [employer] [facility], [facility]. Work Phone: 1.27 {gm/dL} Normal 0.84 - 1.36 {gm/dL} [facility].; [place] [employer] [facility], [facility]. Work Phone: 1.77 {gm/dL} Abnormal 0.70 - 1.44 {gm/dL} [facility].; [place] [employer], [employer]. Work Phone: 0.00 {gm/dL} Normal [facility].; [employer] [place] [employer]. Work Phone: No definitive M prot ein is identified on protein electrophoresis. Normal [facility].; [employer]. Work Phone: Reviewed by Janina Parmar M.D., Ph.D ([phone]) Normal [facility].; [employer]. Work Phone: Monoclonal Protein analysis (immunofixation) is not indicated. Normal [facility].; [employer]. Work Phone: 5.5 % Normal 4.3 - 5.6 % [facility]; [employer]. Work Phone: 111 mg/dL Normal [place] [employer] [facility].; [employer], [employer]. Work Phone: 31 mg/dL Abnormal 0 - 20 mg/dL [facility]; [employer]. Work Phone: 37.5 % Normal [facility].; [employer]. Work Phone: 2.7 % Normal [facility].; [employer]. Work Phone: 17.8 % Normal [facility].; [employer]. Work Phone: 18.3 % Normal [facility].; [employer]. Work Phone: 23.8 % Normal [facility] [employer].; [employer]. Work Phone: Laboratory - Chemistry and C hemistry - challengeon 04-22-2020 Albumin/Creatinine DL <= 20 mg/L (U) [Mass ratio] 30-300 mg/g Abnormal [facility].; [employer]Manager Creatinine (U) [Mass/Vol] 300 mg/dL Normal [place] [employer] [facility].; [employer] Mapper. Laboratory - Urinalysison Protein Ql (U) 80 mg/dL Normal [facility].; [place] [employer]. Laboratory - Chemistry and C hemistry - challengeon 04-08-2020 Basic metabolic 2000 panel BMP with eGFR Normal [facility].; [employer]Order Mapper Calcium [Mass/Vol] 9.2 mg/dL Normal 8.6 - 10. 2 mg/dL [facility].; [place] [employer], [employer]. Chloride [Moles/Vol] 105 mmol/L Normal 98 - 10 7 mmol/L [facility].; [place] [employer], [employer]. CO2 [Moles/Vol] 21.3 mmol/L Normal 21.0 - 31.0 mmol/L [facility].; [employer]Re[employer], [employer]. Creatinine [Mass/Vol] 0.7 mg/dL Normal 0.6 - 1.2 mg/dL [facility].; [place] [employer], [employer]. GFR/1.73 sq M.predicted among blacks MDRD (S/P/Bld) [Vol rate/Area] mL/min/{1.73_m2} Normal 60 - 999 {ML/MINUTE} [employer].; [employer]. GFR/1.73 sq M.predicted MDRD (S/P/Bld) [Vol rate/Area] mL/min/{1.73_m2} Normal 60 - 999 {ML/MINUTE} [employer].; [employer]. Glucose [Mass/Vol] 84 mg/dL Normal 74 - 106 mg/dL [employer].; [employer]. Potassium [Moles/Vol] 3.6 mmol/L Normal 3.5 - 5.1 mmol/L [employer].; [employer]. Sodium [Moles/Vol] 138 mmol/L Normal 136 - 145 mmol/L [employer].; [employer]. Urea nitrogen [Mass/Vol] 9 mg/dL Normal 6 - 20 mg/dL [employer].; [employer]. No Panel Informationon 04-08 15 mmol/L Normal 10 - 20 mmol/L [employer] M[employer].; [employer]and[employer]. 35 {years} Normal [employer] M[employer].; [employer]. .Auto Diffon 07-01-2019 Ammonia (P) [Mass/Vol] 0.90 10 3/mcL Normal 0.15-1.00 [facility] ([place]) Comment on above: Performed By: #### C RUTH PA ANEU #### [address] [address] #### BMP, GFR #### [address] [address] Basophils (Bld) [#/Vol] 0.10 10 3/mcL Normal 0.00-0.19 [facility] ([place]) Comment on above: Performed By: #### C RUTH PA ANEU #### [address] [address] #### BMP, GFR #### [address] [address] Basophils/100 WBC (Bld) 0.8 % Normal 0.0-2.5 [facility] ([place]) Comment on above: Performed By: #### C BC, ADIFF, ANEU #### [address] [address] #### BMP, GFR #### [address] [address] Eosinophils (Bld) [#/Vol] 0.20 10 3/mcL Normal 0.00-0.40 [facility] ([place]) Comment on above: Performed By: #### C BC, ADIFF, ANEU #### [address] [address] #### BMP, GFR #### [address] [address] Eosinophils/100 WBC (Bld) 2.1 % Normal 0.0-7.0 [facility] ([place]) Comment on above: Performed By: #### C BC, ADIFF, ANEU #### [address] [address] #### BMP, GFR #### [address] [address] Lymphocytes (Bld) [#/Vol] 2.70 10 3/mcL Normal 0.77-3.85 [facility] ([place]) Comment on above: Performed By: #### C BC, ADIFF, ANEU #### [address] [address] #### BMP, GFR #### [address] [address] Lymphocytes/100 WBC (Bld) 27.2 % Normal 10.0-50.0 [facility] ([place]) Comment on above: Performed By: #### C BC, ADIFF, ANEU #### [address] [address] #### BMP, GFR #### [address] [address] Monocytes/100 WBC (Bld) 8.6 % Normal 1.7-13.0 [facility] ([place]) Comment on above: Performed By: #### C BC, ADIFF, ANEU #### [address] [address] #### BMP, GFR #### [address] [address] Neutrophils/100 WBC (Bld) 61.3 % Normal 37.0-80.0 [facility] ([place]) Comment on above: Performed By: #### C BC, ADIFF, ANEU #### Rajan [address] [address] #### BMP, GFR #### [address] [address] .GFRon 07-01-2019 GFR Non- 67 ml/min/1.73sqm Normal [facility] ([place]) Comment on above: Result Comment: GFR Population mean for , Non- Americans Ages 20-29 = 116 mL/min/1.73 sq.m. Ages 30-39 = 107 mL/min/1.73 sq.m. Ages 40-49 = 99 mL/min/1.73 sq.m. Ages 50-59 = 93 mL/min/1.73 sq.m. Ages 60-69 = 85 mL/min/1.73 sq.m. Ages 70+ = 75 mL/min/1.73 sq.m. Chronic Kidney Disease: Less than 60 mL/min/1.73 square meters End Stage Renal Disease: Less than 15 mL/min/1.73 square meters Performed By: #### C BC, ADIFF, ANEU #### [address] [address] #### BMP, GFR #### [address] [address] GFR 81 ml/min/1.73sqm Normal [facility] ([place]) Comment on above: Result Comment: GFR Population mean for , Non- Americans Ages 20-29 = 116 mL/min/1.73 sq.m. Ages 30-39 = 107 mL/min/1.73 sq.m. Ages 40-49 = 99 mL/min/1.73 sq.m. Ages 50-59 = 93 mL/min/1.73 sq.m. Ages 60-69 = 85 mL/min/1.73 sq.m. Ages 70+ = 75 mL/min/1.73 sq.m. Chronic Kidney Disease: Less than 60 mL/min/1.73 square meters End Stage Renal Disease: Less than 15 mL/min/1.73 square meters Performed By: #### C BC, ADELIS, ANEU #### [place] [address] #### BMP, GFR #### [place] [address] .NEUABSon 07-01-2019 Neutrophils (Bld) [#/Vol] 6.20 10 3/mcL High 2.85-6.16 [facility] ([place]) Comment on above: Performed By: #### C RUTH PA, ANEU #### [place] [address] #### BMP, GFR #### [place] [address] .Urinalysis Microscopic (AO) on 07-01-2019 RBC (U) [#/Vol] 0-5 None Seen [facility] ([place]) Comment on above: Performed By: #### U A, UAMICAO #### [place] [address] #### PREGU #### [place] [id number] UA Squam Epithelial 0-5 None Seen [facility] ([place]) Comment on above: Performed By: #### U A, UAMICAO #### [place] [address] #### PREGU #### [address] [address] UA WBC None Seen Normal None Seen [facility] ([place]) Comment on above: Performed By: #### U A, UAMICAO #### [place] [address] #### PREGU #### [address] [place] [address] BMPon 07-01-2019 Calcium [Mass/Vol] 8.8 mg/dL Normal 8.4-10.2 [facility] ([place]) Comment on above: Performed By: #### C BC, ADIFF, ANEU #### [address] [address] #### BMP, GFR #### [address] [address] Chloride [Moles/Vol] 105 mmol/L Normal 98-107 [facility] ([place]) Comment on above: Performed By: #### C BC, ADIFF, ANEU #### [place] [address] #### BMP, GFR #### [address] [address] CO2 [Moles/Vol] 26 mmol/L Normal 22-29 [facility] ([place]) Comment on above: Performed By: #### C BC, ADIFF, ANEU #### [address] [address] #### BMP, GFR #### [address] [address] Creatinine [Mass/Vol] 0.95 mg/dL Normal 0.55-1.02 [facility] ([place]) Comment on above: Performed By: #### C BC, ADIFF, ANEU #### [place] [address] #### BMP, GFR #### [address] [address] Electrolyte Balance 10.0 mEq/L Normal [facility] ([place]) Comment on above: Performed By: #### C BC, ADIFF, ANEU #### [place] [id number] #### BMP, GFR #### [address] [address] Glucose [Mass/Vol] 85 mg/dL Normal 70-105 [facility] ([place]) Comment on above: Performed By: #### C BC, ADIFF, ANEU #### [address] [address] #### BMP, GFR #### [address] [address] Potassium [Moles/Vol] 3.7 mmol/L Normal 3.5-5.1 [facility] ([place]) Comment on above: Performed By: #### C BC, ADIFF, ANEU #### [address] [address] #### BMP, GFR #### [address] [address] Sodium [Moles/Vol] 141 mmol/L Normal 136-145 [facility] ([place]) Comment on above: Performed By: #### C BC, ADIFF, ANEU #### [address] [address] #### BMP, GFR #### [address] [address] Urea nitrogen [Mass/Vol] 13 mg/dL Normal 7-18 [facility] ([place]) Comment on above: Performed By: #### C BC, ADIFF, ANEU #### [address] [address] #### BMP, GFR #### [address] [address] Urea nitrogen/Creatinine [Mass ratio] 14 ratio Normal 7-27 [facility] ([place]) Comment on above: Performed By: #### C BC, ADIFF, ANEU #### [address] [address] #### BMP, GFR #### [address] [address] CBCon 07-01-2019 Erythrocyte distribution width (RBC) [Ratio] 13.5 % Normal 11.5-14.5 [facility] ([place]) Comment on above: Performed By: #### C BC, ADIFF, ANEU #### [address] [address] #### BMP, GFR #### [address] [address] Hematocrit (Bld) [Volume fraction] 34.5 % Low 37.0-47.0 [facility] ([place]) Comment on above: Performed By: #### C RUTH PA, ANEU #### [address] [address] #### BMP, GFR #### [place] [address] Hemoglobin (Bld) [Mass/Vol] 11.6 G/dL Low 12.0-16.0 [facility] ([place]) Comment on above: Performed By: #### C RUTH PA, ANEU #### [place] [address] #### BMP, GFR #### [place] [address] MCH (RBC) [Entitic mass] 28.4 pg Normal 27.0-31.2 [facility] ([place]) Comment on above: Performed By: #### C RUTH PA, ANEU #### [address] [address] #### BMP, GFR #### [place] [address] MCHC (RBC) [Mass/Vol] 33.5 G/dL Normal 33.0-37.0 [facility] ([place]) Comment on above: Performed By: #### C RUTH PA, ANEU #### [place] [address] #### BMP, GFR #### [place] [address] MCV (RBC) [Entitic vol] 84.8 fL Normal 80.0-94.0 [facility] ([place]) Comment on above: Performed By: #### C RUTH PA, ANEU #### [address] [address] #### BMP, GFR #### [place] [address] Platelet mean volume (Bld) [Entitic vol] 8.2 fL Normal 7.4-10.4 [facility] ([place]) Comment on above: Performed By: #### C BC, ADIFF, ANEU #### [address] [address] #### BMP, GFR #### [address] [address] Platelets (Bld) [#/Vol] 258 10 3/mcL Normal 130-400 [facility] ([place]) Comment on above: Performed By: #### C BC, ADIFF, ANEU #### [address] [address] #### BMP, GFR #### [address] [address] RBC (Bld) [#/Vol] 4.06 10 6/mcL Low 4.20-5.40 [facility] ([place]) Comment on above: Performed By: #### C BC, ADIFF, ANEU #### [address] [address] #### BMP, GFR #### [address] [address] WBC (Bld) [#/Vol] 10.10 10 3/mcL Normal 4.60-10.80 [facility] ([place]) Comment on above: Performed By: #### C BC, ADIFF, ANEU #### [place] [id number] #### BMP, GFR #### [address] [address] [address] ABDOMEN/PELVIS W/O CONTRA STon 07-01-2019 CT ABDOMEN/PELVIS W/O CONTRAST ORIGINAL CT ABDOMEN/PELVIS W/O CONTRAST REPORT CORRECTION CORRECTION: Suspect epiploic appendagitis. SPOKE TO TIME: 2004 I have personally reviewed the images of this examination and edited the preliminary report. CLINICAL STATEMENT: abdominal pain. LEFT flank pain since Wednesday. COMPARISON: None. TECHNIQUE: Axial images were obtained from the lung bases through the pubic symphysis. Coronal and sagittal reformatted images were generated from the axial dataset. This exam was performed according to our departmental dose optimization program, and includes the following measures where applicable: automated exposure control, adjustment of the mAs and/or kVp according to patient size and/or exam, and an iterative reconstruction algorithm. FINDINGS: The kidneys are symmetric in size and are without calculi, hydronephrosis, or perinephric stranding. The ureters are normal. No bladder calculi are visible. There are multiple phleboliths within the pelvis. The spleen is unremarkable for noncontrast examination. Liver shows diffuse decreased attenuation throughout, save for parenchyma adjacent to the gallbladder. The noncontrasted pancreas and adrenal glands are normal. The gallbladder is collapsed. The small and large bowel are normal in course and caliber. No free intraperitoneal fluid or gas is identified. Mild inflammatory change is present in the fat adjacent to the mid descending colon, surrounding a tubular fatty density. There is no acute fracture or aggressive osseous lesion. Sclerosis of the sacroiliac joints bilaterally. IMPRESSION: Suspect epiploic appendagitis. Hepatic steatosis. Chronic bilateral sacroiliitis. This may be idiopathic or occur in the setting of seronegative spondyloarthropathies and inflammatory bowel disease. Interpreted By: Francis Cassidy MD Preliminary Report By: Abdulaziz Wilson DO Electronically Signed By: Francis Cassidy MD Dictated Date: 07/01/2019 6:01:31 PM Prelim Date: 07/01/2019 6:12:21 PM Sign Date: 07/01/2019 8:09:06 PM Normal [facility] ([place]) PREGUon 07-01-2019 HCG ( test) Ql (U) Negative Normal [facility] ([place]) Comment on above: Performed By: #### U A, UAMICAO #### [address] [address] #### PREGU #### [address] [address] test (u) int HCG not detected. [facility] ([place]) Comment on above: Performed By: #### U A, UAMICAO #### [address] [address] #### PREGU #### Rajan [address] [address] UAon 07-01-2019 Color (U) Yellow Normal [facility] ([place]) Comment on above: Performed By: #### U A, UAMICAO #### [place] [address] #### PREGU #### [address] [address] Glucose (U) [Mass/Vol] Negative Normal Negative [facility] ([place]) Comment on above: Performed By: #### U A, UAMICAO #### [place] [address] #### PREGU #### [address] [address] Ketones Ql (U) Negative Normal Negative [facility] ([place]) Comment on above: Performed By: #### U A, UAMICAO #### [place] [address] #### PREGU #### [address] [address] UA Appear Slightly Cloudy Clear [facility] ([place]) Comment on above: Performed By: #### U A, UAMICAO #### [place] [address] #### PREGU #### [address] [address] UA Blood Trace Negative [facility] ([place]) Comment on above: Performed By: #### U A, UAMICAO #### [place] [address] #### PREGU #### [address] [address] UA Leuk Est Negative Normal Negative [facility] ([place]) Comment on above: Performed By: #### U A, UAMICAO #### [place] [address] #### PREGU #### [address] [address] UA Nitrite Negative Normal Negative [facility] ([place]) Comment on above: Performed By: #### U A, UAMICAO #### [place] [address] #### PREGU #### [address] [address] UA pH 5.5 Normal 5.0 - 8.0 [facility] ([place]) Comment on above: Performed By: #### U A, UAMICAO #### [place] [address] #### PREGU #### [address] [address] UA Protein Negative Normal Negative [facility] ([place]) Comment on above: Performed By: #### U A, UAMICAO #### [place] [address] #### PREGU #### [address] [address] UA Spec Grav >=1.030 1.015-1.025 [facility] ([place]) Comment on above: Performed By: #### U A, UAMICAO #### [place] [address] #### PREGU #### [address] [address] UA Specimen Type Clean Catch Normal [facility] ([place]) Comment on above: Performed By: #### U A, UAMICAO #### [place] [address] #### PREGU #### [address] [address] UA Urobilinogen 0.2 E.U./dL Normal 0.2-1.0 [facility] ([place]) Comment on above: Performed By: #### U A, UAMICAO #### [place] [address] #### PREGU #### [address] [address] Urobilinogen Qn (U) Negative Normal Negative [facility] ([place]) Comment on above: Performed By: #### U A UAMICAO #### [address] [address] #### PREGU #### [address] [address] Laboratory - Chemistry and C hemistry - challengeon 05-04-2019 TSH Qn 0.34 m[IU]/L Abnormal 0.40 - 4.50 {mIU/L} [facility] [employer]. Laboratory - Chemistry and C hemistry - challengeon 04-05-2019 Free T4 [Mass/Vol] 1.0 ng/dL Normal 0.8 - 1.8 ng/dL [facility] [place] [employer] [facility].; [employer]. Thyroglobulin [Mass/Vol] 6.1 ng/mL Normal 2.8 - 40.9 ng/mL [place] [employer] [facility].; [employer]. Laboratory - Serology - non- microon 04-05-2019 Thyroglobulin Ab Qn [IU]/mL Normal [facility].; [employer]. TPO Ab Qn [IU]/mL Normal [employer].; [employer]. Laboratory - Chemistry and C hemistry - challengeon 04-03-2019 TSH Qn 0.38 m[IU]/L Abnormal 0.40 - 4.50 {mIU/L} [place] [employer]. Laboratory - Microbiology an d Antimicrobial susceptibilityon 02-20-2019 S. pyogenes Ag EIA Ql (Throat) Negative Normal [place] [employer]. No Panel Informationon 02-20 Negative Normal [employer].; [employer]. Laboratory - Chemistry and C hemistry - challengeon 01-09-2019 Bilirubin Ql (U) Negative Normal [facility] [employer]. Ketones Ql (U) Negative Normal [facility] [employer]. pH (U) 5.5 [pH] Normal [employer].; [employer]. Specific gravity (U) [Rel density] 1.025 Normal [facility] [employer].; [employer]. Urobilinogen Qn (U) 0.2 mg/dL Normal [facility] [employer].; [employer]. Laboratory - Hematology and Cell countson 01-09-2019 Hemoglobin Ql (U) small Abnormal [facility] [employer].; [employer]. Laboratory - Microbiology an d Antimicrobial susceptibilityon 01-09-2019 Bacteria identified Cx Nom (U) SEE NOTE Normal [employer].; [employer]. S. pyogenes Ag EIA Ql (Throat) Negative Normal [employer].; [employer]. Laboratory - Specimen inform ationon 01-09-2019 Appearance (U) clear Normal [facility] [employer]; [employer]. Color (U) yellow Normal [place] [employer]. Specimen source Nom (Unsp spec) URINE Normal [employer]; [employer]. Laboratory - Urinalysison Glucose Test strip (U) [Mass/Vol] Negative Normal [place] [employer]. Leukocyte esterase Test strip Ql (U) Negative Normal [employer].; [employer]. Nitrite Ql (U) Negative Normal [facility] [employer].; [employer]. Protein Ql (U) Negative Normal [facility] [employer].; [employer]. No Panel Informationon 01-09 Negative Normal [employer].; [employer]. Laboratory - Cytologyon Microscopic observation Cyto stain Nom (Cvx) SEE NOTE Normal [employer].; [employer]. Laboratory - Cytologyon Microscopic observation Cyto stain Nom (Cvx) Normal [employer].; [employer]. Laboratory - Chemistry and C hemistry - challengeon 03-18-2017 25-hydroxyvitamin D3 [Mass/Vol] 30 ng/mL Normal 30 - 100 ng/mL [employer].; [employer]. Laboratory - Hematology and Cell countson 03-18-2017 Basophils (Bld) [#/Vol] 40 {Cells}/uL Normal 0 - 200 {Cells}/uL [facility].; [place] [employer] [facility]. Basophils/100 WBC (Bld) 1 % Normal 0 - 1 % [facility].; [place] [employer] [facility], [facility] Eosinophils (Bld) [#/Vol] 160 {Cells}/uL Normal 15 - 500 {Cells}/uL [facility].; [place] [employer] [facility] Eosinophils/100 WBC (Bld) 2 % Normal 0 - 4 % [facility].; [place] [employer], [facility] Erythrocyte distribution width (RBC) [Ratio] 13.6 % Normal 11.0 - 15.0 % [facility].; [place] [employer] [facility], [facility] Hematocrit (Bld) [Volume fraction] 35.8 % Normal 35.0 - 45.0 % [place] [employer] [facility], [facility].; [employer] [place] [employer], [facility] Hemoglobin (Bld) [Mass/Vol] 11.7 g/dL Normal 11.7 - 15.5 g/dL [facility].; [employer] [place] [employer], [facility] Lymphocytes (Bld) [#/Vol] 2350 {Cells}/uL Normal 850 - 3900 {Cells}/uL [facility].; [employer] [place] [employer], [facility]. Lymphocytes/100 WBC (Bld) 31 % Normal 12 - 47 % [facility] [place] [employer], [facility].; [facility] [place] [employer], [facility]. MCH (RBC) [Entitic mass] 28.4 pg Normal 27.0 - 33.0 PG [facility] [place] [employer] [facility].; [employer] [place] [employer], [facility]. MCHC (RBC) [Mass/Vol] 32.7 g/dL Normal 32.0 - 36.0 g/dL [place] [employer] [facility], [facility].; [employer] [place] [employer], [employer]. MCV (RBC) [Entitic vol] 86.6 fL Normal 80.0 - 100.0 fL [place] [employer] [facility].; [place] [employer], [facility]. Monocytes (Bld) [#/Vol] 450 {Cells}/uL Normal 200 - 950 {Cells}/uL [employer] [facility] [employer].; [facility] [place] [employer] Monocytes/100 WBC (Bld) 6 % Normal 4 - 12 % [facility].; [facility]. Neutrophils (Bld) [#/Vol] 4630 {Cells}/uL Normal 1500 - 7800 {Cells}/uL [facility].; [employer] [place] [employer]. Neutrophils/100 WBC (Bld) 61 % Normal 40 - 75 % [facility].; [place] [employer]. Platelet mean volume (Bld) [Entitic vol] 9.8 fL Normal 7.5 - 12.5 fL [facility].; [employer] [place] [employer]. Platelets (Bld) [#/Vol] 256 10*3/uL Normal 140 - 400 10*3/uL [facility].; [place] [employer]. RBC (Bld) [#/Vol] 4.13 10*6/uL Normal 3.80 - 5.1 0 10*6/uL [facility].; [place] [employer]. WBC (Bld) [#/Vol] 7.6 10*3/uL Normal 3.8 - 10.8 10*3/uL [facility].; [place] [employer]. Laboratory - Chemistry and C hemistry - challengeon 01-27-2017 Albumin [Mass/Vol] 4.2 g/dL Normal 3.6 - 5.1 g/dL [facility].; [place] [employer], [employer]. Albumin/Globulin [Mass ratio] 1.3 {ratio} Normal 1.0 - 2.5 [facility].; [place] [employer]. ALP [Catalytic activity/Vol] 68 U/L Normal 33 - 115 U/L [facility].; [place] [employer]. ALT [Catalytic activity/Vol] 23 U/L Normal 6 - 29 U/L [facility].; [place] [employer]. AST [Catalytic activity/Vol] 20 U/L Normal 10 - 30 U/L [facility].; [place] [employer], [employer]. Bilirubin [Mass/Vol] 0.2 mg/dL Normal 0.2 - 1 .2 mg/dL [facility].; [place] [employer]. Calcium [Mass/Vol] 9.8 mg/dL Normal 8.6 - 10. 2 mg/dL [facility], [facility].; [facility], [facility]. Chloride [Moles/Vol] 104 mmol/L Normal 98 - 11 0 mmol/L [facility], [facility].; [facility], [facility]. CO2 [Moles/Vol] 25 mmol/L Normal 20 - 31 mmol/L [facility], [facility].; [facility], [facility]. Creatinine [Mass/Vol] 0.87 mg/dL Normal 0.50 - 1.10 mg/dL [facility], [facility].; [facility], [facility]. GFR/1.73 sq M.predicted among blacks MDRD (S/P/Bld) [Vol rate/Area] 102 {ML/MIN/1.73M2} Normal [facility], [facility].; [facility], [facility]. GFR/1.73 sq M.predicted MDRD (S/P/Bld) [Vol rate/Area] 88 {ML/MIN/1.73M2} Normal [facility], [facility].; [facility], [facility]. Globulin (S) [Mass/Vol] 3.3 g/dL Normal 1.9 - 3.7 g/dL [facility], [facility].; [facility], [facility]. Glucose [Mass/Vol] 77 mg/dL Normal 65 - 99 mg/dL [facility], [facility].; [place] [employer] [facility], [facility]. Potassium [Moles/Vol] 4.1 mmol/L Normal 3.5 - 5.3 mmol/L [facility], [facility].; [facility], [facility]. Protein [Mass/Vol] 7.5 g/dL Normal 6.1 - 8.1 g/dL [facility], [facility].; [place] [employer] [facility], [facility]. Sodium [Moles/Vol] 140 mmol/L Normal 135 - 146 mmol/L [facility], [facility].; [facility], [facility]. Urea nitrogen [Mass/Vol] 11 mg/dL Normal 7 - 25 mg/dL [facility], [facility].; [place] [employer], [facility]. Urea nitrogen/Creatinine [Mass ratio] 12.1 mg/mg Normal 6 - 22 [facility].; [facility], [facility]. Laboratory - Chemistry and C hemistry - challengeon 12-18-2016 25-hydroxyvitamin D3 [Mass/Vol] 23 ng/mL Abnormal 30 - 100 ng/mL [facility].; [facility] [employer]. Cobalamin (Vitamin B12) [Mass/Vol] 467 pg/mL Normal 200 - 1100 pg/mL [facility].; [employer]. TSH Qn 1.44 m[IU]/L Normal 0.40 - 4.50 {mIU/L} [facility].; [facility] [place] [employer]. Laboratory - Hematology and Cell countson 12-18-2016 Basophils (Bld) [#/Vol] 30 {Cells}/uL Normal 0 - 200 {Cells}/uL [facility].; [employer] [place] [employer]. Basophils/100 WBC (Bld) 0 % Normal 0 - 1 % [facility] [place] [employer].; [employer]. Eosinophils (Bld) [#/Vol] 140 {Cells}/uL Normal 15 - 500 {Cells}/uL [facility].; [employer]. Eosinophils/100 WBC (Bld) 1 % Normal 0 - 4 % [facility] [employer].; [employer]. Erythrocyte distribution width (RBC) [Ratio] 13.5 % Normal 11.0 - 15.0 % [facility] [place] [employer] [facility].; [employer], [employer]. Hematocrit (Bld) [Volume fraction] 35.5 % Normal 35.0 - 45.0 % [facility] [place] [employer].; [employer], [employer]. Hemoglobin (Bld) [Mass/Vol] 11.9 g/dL Normal 11.7 - 15.5 g/dL [place] [employer] [facility].; [employer] [place] [employer]. Lymphocytes (Bld) [#/Vol] 3190 {Cells}/uL Normal 850 - 3900 {Cells}/uL [facility] [employer].; [facility] [employer]. Lymphocytes/100 WBC (Bld) 28 % Normal 12 - 47 % [facility] [place] [employer].; [employer], [employer]. MCH (RBC) [Entitic mass] 28.9 pg Normal 27.0 - 33.0 PG [place] [employer].; BryantOrder Mapper. MCHC (RBC) [Mass/Vol] 33.4 g/dL Normal 32.0 - 36.0 g/dL [facility].; [place] [employer]. MCV (RBC) [Entitic vol] 86.3 fL Normal 80.0 - 100.0 fL [facility].; [place] [employer], [employer]. Monocytes (Bld) [#/Vol] 720 {Cells}/uL Normal 200 - 950 {Cells}/uL [facility].; [place] [employer]. Monocytes/100 WBC (Bld) 6 % Normal 4 - 12 % [facility] [employer].; [place] [employer]. Neutrophils (Bld) [#/Vol] 7230 {Cells}/uL Normal 1500 - 7800 {Cells}/uL [facility] [employer].; Bryant [employer]. Neutrophils/100 WBC (Bld) 64 % Normal 40 - 75 % [place] [employer].; Bryant [employer]. Platelet mean volume (Bld) [Entitic vol] 9.4 fL Normal 7.5 - 12.5 fL [facility] Dragon[employer] List [facility].; Bryant [employer]. Platelets (Bld) [#/Vol] 251 10*3/uL Normal 140 - 400 10*3/uL [employer] [place] [employer].; [employer] [place] [employer]. RBC (Bld) [#/Vol] 4.11 10*6/uL Normal 3.80 - 5.1 0 10*6/uL [facility] [employer].; [place] [employer]. WBC (Bld) [#/Vol] 11.3 10*3/uL Abnormal 3.8 - 10.8 10*3/uL [place] [employer].; BryantOrder Mapper. Laboratory - Cytologyon 02-09 Microscopic observation Cyto stain Nom (Cvx) Normal [place] [employer].; BryantOrder Mapper. Laboratory - Chemistry and C hemistry - challengeon 12-23-2015 Bilirubin Ql (U) Negative Normal [facility] [employer].; [employer], [employer]. Ketones Ql (U) Negative Normal [facility].; BryantOrder Mapper. pH (U) 6.5 [pH] Normal [facility].; BryantOrder Mapper. Specific gravity (U) [Rel density] 1.015 Normal [facility] HospitalMon[facility]; jobandtalent Urobilinogen Qn (U) 0.2 mg/dL Normal [facility].; BryantOrder Mapper. Laboratory - Hematology and Cell countson 12-23-2015 Hemoglobin Ql (U) Negative Normal [facility] Hospital[facility].; BryantOrder Mapper. Laboratory - Specimen inform ationon 12-23-2015 Appearance (U) clear Normal [facility]; BryantOrder Mapper Color (U) yellow Normal [place] [employer] [facility]; BryantOrder Mapper. Laboratory - Urinalysison Glucose Test strip (U) [Mass/Vol] Negative Normal [facility]; BryantOrder Mapper. Leukocyte esterase Test strip Ql (U) Negative Normal [facility] Hospital[facility]; BryantOrder Mapper. Protein Ql (U) Negative Normal [facility] [employer].; BryantOrder Mapper. Laboratory - UrinalysisOrder ed By: Mckenna Limon on 12-23-2015 Nitrite Ql (U) Negative Normal [facility] Hospital[facility]; BryantOrder Mapper. Laboratory - Chemistry and C hemistry - challengeon 11-23-2014 TSH Qn 1.51 m[IU]/L Normal 0.40 - 4.50 {mIU/L} [facility] HospitalT[facility].; BryantOrder Mapper. Laboratory - Cytologyon Microscopic observation Cyto stain Nom (Cvx) Normal [place] EpiV[employer] [facility] [email or web address]; BryantOrder Mapper. Laboratory - Chemistry and C hemistry - challengeon 11-03-2013 Beta HCG ( test) Ql (U) Negative Normal [place] [employer] BryantOrder Mapper. Laboratory - Hematology and Cell countson 04-21-2012 HbA1c (Bld) [Mass fraction] 5.6 % Normal 4.6 - 7.1 % [place] [employer].; BryantOrder Mapper. Laboratory - Cytologyon 09-11 Microscopic observation Cyto stain Nom (Cvx) SEE NOTE Normal [facility].; [place] [employer]. Laboratory - Urinalysison Glucose Test strip (U) [Mass/Vol] Negative Normal [facility].; [place] [employer]. Protein Ql (U) Negative Normal [facility] HospitalTrell[facility].; BryantReclip.It, [employer]. Laboratory - Urinalysison Glucose Test strip (U) [Mass/Vol] Negative Normal [facility].; BryantReclip.It, [employer]. Protein Ql (U) Negative Normal [facility] [employer].; BryantReclip.It, [employer]. Laboratory - Urinalysison Glucose Test strip (U) [Mass/Vol] Negative Normal [facility]Live[facility].; [place] [employer], [employer]. Protein Ql (U) Negative Normal [facility] [employer].; BryantReclip.It, [employer]. Laboratory - Microbiology an d Antimicrobial susceptibilityon 07-01-2011 S. agalactiae Org specific cx Ql (Unsp spec) SEE NOTE Normal [facility]Live[facility].; [place] [employer], [employer]. Laboratory - Specimen inform ationon 07-01-2011 Specimen source Nom (Unsp spec) GENITAL-VAGINAL Normal [facility]Live[facility].; [place] [employer]. Laboratory - Urinalysison Glucose Test strip (U) [Mass/Vol] Negative Normal [facility]Live[facility].; BryantReclip.It, [employer]. Protein Ql (U) Negative Normal [facility] [employer].; BryantReclip.It, [employer]. Laboratory - Urinalysison Glucose Test strip (U) [Mass/Vol] Negative Normal [facility] Dragon[employer] [facility].; BryantReclip.It, [employer]. Protein Ql (U) Negative Normal [facility].; BryantReclip.It, [employer]. Laboratory - Urinalysison Glucose Test strip (U) [Mass/Vol] Negative Normal [facility] [employer] [facility].; BryantReclip.[employer], [employer]. Protein Ql (U) Negative Normal [facility].; BryantReclip.It, [employer]. Laboratory - Chemistry and C hemistry - challengeon 04-27-2011 Glucose 1 Hr post 50 g glucose PO [Mass/Vol] 91 mg/dL Normal [facility]Live[facility].; Bryant ForceManager Laboratory - Hematology and Cell countson 04-27-2011 Hemoglobin (Bld) [Mass/Vol] 11.4 g/dL Abnormal 11.7 - 15.5 g/dL [facility]Live[facility]; [employer] [place] [employer]. Laboratory - Urinalysison Glucose Test strip (U) [Mass/Vol] Negative Normal [facility]; [employer] [place] [employer]. Protein Ql (U) Negative Normal [facility] HospitalTrelligence.; Bryant ForceManager. Laboratory - Urinalysison Glucose Test strip (U) [Mass/Vol] Negative Normal [facility]Live[facility]; [place] [employer], [employer]. Protein Ql (U) Negative Normal [facility] HospitalTrell[facility].; [place] [employer]. Laboratory - Urinalysison Glucose Test strip (U) [Mass/Vol] Negative Normal [facility] Hospital[facility]; [place] [employer]. Protein Ql (U) Negative Normal [facility] HospitalTrelligence.; Bryant ForceManager. Laboratory - Blood bankon ABO group Nom (Bld) A Normal [facility]; [place] [employer]. Blood group antibody screen Ql Negative Normal [facility]Live[facility].; [place] [employer] Laboratory - Hematology and Cell countson 01-26-2011 Basophils (Bld) [#/Vol] 150 {Cells}/uL Normal 0 - 200 {Cells}/uL [facility].; [place] [employer]. Basophils/100 WBC (Bld) 1 % Normal 0 - 2 % [facility]; [employer] [place] [employer] Eosinophils (Bld) [#/Vol] 50 {Cells}/uL Normal 15 - 500 {Cells}/uL [place] [employer] [facility] HospitalLive[facility].; [place] [employer]. Eosinophils/100 WBC (Bld) 0 % Normal 0 - 8 % [facility]; [place] [employer] Erythrocyte distribution width (RBC) [Ratio] 14.3 % Normal 11.0 - 15.0 % [facility], [facility].; [facility], [facility]. Hematocrit (Bld) [Volume fraction] 36.0 % Normal 35.0 - 45.0 % [facility], [facility].; [facility], [facility]. Hemoglobin (Bld) [Mass/Vol] 12.4 g/dL Normal 11.7 - 15.5 g/dL [facility], [facility].; [facility], [facility]. Lymphocytes (Bld) [#/Vol] 1800 {Cells}/uL Normal 850 - 3900 {Cells}/uL [facility], [facility].; [facility], [facility]. Lymphocytes/100 WBC (Bld) 16 % Normal 15 - 49 % [facility], [facility].; [place] [employer] [facility], [facility]. MCH (RBC) [Entitic mass] 29.9 pg Normal 27.0 - 33.0 PG [facility], [facility].; [place] [employer], [facility]. MCHC (RBC) [Mass/Vol] 34.3 g/dL Normal 32.0 - 36.0 g/dL [facility], [facility].; [place] [employer], [facility]. MCV (RBC) [Entitic vol] 87.1 fL Normal 80.0 - 100.0 fL [facility], [facility].; [place] [employer] [facility], [facility]. Monocytes (Bld) [#/Vol] 480 {Cells}/uL Normal 200 - 950 {Cells}/uL [facility], [facility].; [place] [employer], Inc. Monocytes/100 WBC (Bld) 4 % Normal 0 - 13 % [facility]Live[facility].; [place] [employer], [facility]. Neutrophils (Bld) [#/Vol] 8640 {Cells}/uL Abnormal 1500 - 7800 {Cells}/uL [facility], [facility].; [place] [employer], [facility]. Neutrophils/100 WBC (Bld) 78 % Normal 38 - 80 % [facility], [facility].; [place] [employer], [facility]. Platelets (Bld) [#/Vol] 226 10*3/uL Normal 140 - 400 10*3/uL [place] [employer], [facility].; [place] [employer], Inc. RBC (Bld) [#/Vol] 4.13 10*6/uL Normal 3.80 - 5.1 0 10*6/uL [place] [employer].; BryantOrder Mapper. WBC (Bld) [#/Vol] 11.1 10*3/uL Abnormal 3.8 - 10.8 10*3/uL [place] [employer].; BryantOrder Mapper. Laboratory - Microbiology an d Antimicrobial susceptibilityon 01-26-2011 HBV surface Ag IA Ql Non-Reactive Normal [facility].; BryantOrder Mapper. Reagin Ab RPR Ql (S) Non-Reactive Normal [facility].; BryantOrder Mapper. Rubella virus IgG Qn (S) 2.14 {INDEX} Normal [place] [employer] [facility].; BryantOrder Mapper. Laboratory - Urinalysison Glucose Test strip (U) [Mass/Vol] Negative Normal [facility] [employer] [facility].; BryantOrder Mapper. Protein Ql (U) Negative Normal [facility] [employer].; BryantOrder Mapper. No Panel Informationon 01-26 Positive Normal [facility] [employer] [facility].; BryantOrder Mapper. Laboratory - Chemistry and C hemistry - challengeon 12-29-2010 Bilirubin Ql (U) small Abnormal [facility] [employer].; BryantOrder Mapper. Ketones Ql (U) Negative Normal [facility]Trell[facility].; BryantReclip.It, [employer]. pH (U) 5.5 [pH] Normal 4.6 - 8.0 [place] [employer].; BryantOrder Mapper. Specific gravity (U) [Rel density] 1.030 Abnormal 1.001 - 1.025 [place] [employer].; BryantOrder Mapper. Laboratory - Hematology and Cell countson 12-29-2010 Hemoglobin Ql (U) Negative Normal [place] [employer].; BryantOrder Mapper. Laboratory - Specimen inform ationon 12-29-2010 Appearance (U) clear Normal [facility].; BryantOrder Mapper. Color (U) yellow Normal [place] [employer].; [employer]. Laboratory - Urinalysison Glucose Test strip (U) [Mass/Vol] Negative Normal BryantOrder Mapper.; joband[employer]. Leukocyte esterase Test strip Ql (U) Negative Normal BryantOrder Mapper.; [employer]. Nitrite Ql (U) Negative Normal [facility].; BryantOrder Mapper. Protein Ql (U) 30 mg/dL Abnormal [facility].; BryantOrder Mapper. No Panel Informationon 12-29 1.0 mg/dL Normal [place] [employer].; [employer]. Laboratory - Cytologyon Cytology report Cyto stain Doc (Cvx/Vag) SEE NOTE Normal [facility] e[employer] Connections.; BryantOrder Mapper. Laboratory - Chemistry and C hemistry - challengeon 07-10-2010 Beta HCG ( test) Ql (U) Negative Normal [place] [employer].; [employer]and[employer]. Bilirubin Ql (U) Negative Normal [facility].; BryantOrder Mapper. Ketones Ql (U) Negative Normal [facility].; jobandtal[employer]. pH (U) 5.5 [pH] Normal 4.6 - 8.0 BryantOrder Mapper.; jobandtalent. Specific gravity (U) [Rel density] 1.025 Normal 1.001 - 1.025 [place] [employer].; [employer]and[employer]. Laboratory - Hematology and Cell countson 07-10-2010 Hemoglobin Ql (U) Large Abnormal [place] [employer].; BryantOrder Mapper. Laboratory - Microbiology an d Antimicrobial susceptibilityon 07-10-2010 Amoxicillin+Clavulana te Disk diffusion (KB) [Susc] <=8/4 Normal BryantOrder Mapper.; [employer]and[employer]. Work Phone: Ampicillin Disk diffusion (KB) [Susc] <=8 Normal [facility] [employer]Calculator.; jobandtalent. Work Phone: Ampicillin+Sulbactam Disk diffusion (KB) [Susc] <=8/4 Normal BryantOrder Mapper.; [employer]and[employer]. Work Phone: Bacteria identified Cx Nom (U) SEE NOTE Normal [facility]; [facility] Bacteria identified Cx Nom (Unsp spec) SEE NOTE Abnormal [facility]; [facility] Cefepime [Susc] <=8 Normal [facility]; [facility] Work Phone: cefTAZidime Disk diffusion (KB) [Susc] <=1 Normal [facility]; [facility] Work Phone: cefTRIAXone Disk diffusion (KB) [Susc] <=8 Normal [facility]; [facility] Work Phone: Cefuroxime Parenteral Disk diffusion (KB) [Susc] <=4 Normal [facility]; [facility]Live[facility] Work Phone: Ciprofloxacin [Susc] <=1 Normal [facility]; [facility] Work Phone: Ertapenem [Susc] <=2 Normal [facility]; [facility] Work Phone: Gentamicin [Susc] <=1 Normal [facility]; [facility] Work Phone: Imipenem [Susc] <=4 Normal [facility]; [facility]Live[facility] Work Phone: levoFLOXacin [Susc] <=2 Normal [facility]; [facility] Work Phone: Piperacillin+Tazobact am [Susc] <=16 Normal [facility]; [facility] Work Phone: Tetracycline [Susc] >8 Normal [facility]; [facility] Work Phone: Tobramycin [Susc] <=2 Normal [facility] HospitalTrelligence.; BryantOrder Mapper. Work Phone: Trimethoprim+Sulfamet hoxazole [Susc] <=/ Normal [facility] HospitalTrelligence.; BryantOrder Mapper. Work Phone: Laboratory - Specimen inform ationon 07-10-2010 Appearance (U) Cloudy Abnormal [facility] [employer].; BryantOrder Mapper. Color (U) Yellow Normal [place] [employer].; [employer] Specimen source Nom (Unsp spec) URINE-void Normal [place] [employer].; BryantOrder Mapper Laboratory - Urinalysison Glucose Test strip (U) [Mass/Vol] Negative Normal [facility] [employer].; BryantOrder Mapper Leukocyte esterase Test strip Ql (U) Moderate Abnormal [place] [employer].; Bryant[employer] Mapper. Nitrite Ql (U) Positive Abnormal [facility] [employer].; BryantOrder Mapper. Protein Ql (U) 30 mg/dL Abnormal [facility] [employer].; BryantOrder Mapper. No Panel Informationon 07-10 0.2 mg/dL Normal [place] [employer].; [employer] Mapper. <=8 Normal [place] [employer].; [employer]. Work Phone: <=2 Normal [place] [employer].; Bryant[employer] M[employer]. Work Phone: <=0.25 Normal [place] [employer].; [employer]. Work Phone: <=32 Normal [place] [employer].; [employer]. Work Phone: <=16 Normal BryantOrder Mapper.; [employer]. Work Phone: Culture, urine Bacteria identified Cx Nom (U) Positive [facility] Work Phone: No Panel Information Group B Streptococcus Culture Group B Beta Streptococcus is not isolated. [facility] Work Phone: Vital Signs Date Time Vital Sign Value Performing Clinician Soren breaux 04-25-2025 13:53-0400 Body height 157.48 cm Dalia David Justine [facility] [employer] [facility], Inc.; [employer] 04-25-2025 13:53-0400 Body mass index (BMI) [Ratio] 38.59 kg/m2 Dalia David Justine [facility] [employer] [facility], Inc.; [employer], [employer] 04-25-2025 13:53-0400 Body surface area Derived from formula 1.96 m2 Dalia [facility] HospitalReclip.It, Inc.; [employer], [employer] 04-25-2025 13:53-0400 Body weight 95.71 kg Dalia M Justine [facility] HospitalReclip.It, Inc.; [employer], [employer]. 04-25-2025 13:53-0400 Diastolic blood pressure 79 mm[Hg] Dalia [facility] HospitalRe[facility].It, Inc.; [employer], [employer]. 04-25-2025 13:53-0400 Heart rate 101 /min Dalia [facility] HospitalRe[facility], Inc.; [employer], [employer] 04-25-2025 13:53-0400 Systolic blood pressure 119 mm[Hg] Dalia Frankie Justine [facility] HospitalRe[facility].It, Inc.; [employer], [employer] 03-22-2025 07:04-0400 Body height 157.48 cm Dalia [facility] HospitalRe[facility].It, Inc.; [employer], [employer]. 03-22-2025 07:04-0400 Body mass index (BMI) [Ratio] 39.14 kg/m2 Dalia Frankie Justine [facility] HospitalReclip.It, Inc.; [employer], [employer]. 03-22-2025 07:04-0400 Body surface area Derived from formula 1.97 m2 Dalia [facility] HospitalReclip.It, Inc.; [employer]andtal[employer]. 03-22-2025 07:04-0400 Body weight 97.07 kg Dalia Frankie Fletcher LPN [facility]Live[facility].; Bryant [employer] [facility]Live[facility]. 03-22-2025 07:04-0400 Diastolic blood pressure 76 mm[Hg] Dalia Fletcher LPN [facility], [facility].; Bryant [employer] [facility] HospitalLive[facility]. 03-22-2025 07:04-0400 Heart rate 66 /min Dalia Fletcher LPN [facility], [facility].; Bryant [employer] [facility] HospitalLive[facility]. 03-22-2025 07:04-0400 Systolic blood pressure 112 mm[Hg] Dalia Fletcher LPN [facility]Live[facility].; BryantSolace Lifesciences [facility] HospitalLive[facility]. 09-14-2024 11:25-0500 Body weight 98.88 kg [facility].; Bryant [employer] [facility] HospitalLive[facility]. 09-14-2024 11:25-0500 Diastolic blood pressure 71 mm[Hg] [facility].; Bryant E[employer] [facility]. 09-14-2024 11:25-0500 Systolic blood pressure 104 mm[Hg] [facility].; BryantStand Offer [facility]. 06-23-2024 09:16-0400 Body height 157.48 cm Dalia Fletcher LPN [place] [employer] [facility] HospitalLive[facility].; BryantStand Offer [facility]. 06-23-2024 09:16-0400 Body mass index (BMI) [Ratio] 38.59 kg/m2 Dalia Fletcher LPN [place] [employer] [facility] HospitalLive[facility].; BryantStand Offer [facility]. 06-23-2024 09:16-0400 Body surface area Derived from formula 1.96 m2 Dalia Fletcher LPN [place] [employer] [facility] HospitalLive[facility].; BryantStand Offer [facility]. 06-23-2024 09:16-0400 Body temperature 98.6 [degF] Dalia Fletcher LPN [place] [employer] [facility] HospitalLive[facility].; BryantStand Offer [facility]. 06-23-2024 09:16-0400 Body weight 95.71 kg Dalia Fletcher LPN [place] [employer] [facility] HospitalLive[facility].; BryantStand Offer [facility]. 06-23-2024 09:16-0400 Diastolic blood pressure 60 mm[Hg] Dalia Frankie Fletcher LPN [place] [employer] [facility], Inc.; BryantStand Offer [facility]. 06-23-2024 09:16-0400 Heart rate 83 /min Dalia Fletcher LPN [place] [employer] [facility], Inc.; Bryant [employer], [employer]. 06-23-2024 09:16-0400 Systolic blood pressure 115 mm[Hg] Dalia Frankie Fletcher LPN [place] [employer] [facility], Inc.; BryantReclip.It, Inc. 06-16-2024 08:45-0400 Body weight 96.62 kg Rosaura Joy MICHAEL [facility] [employer] [facility], Inc.; BryantReclip.It, Inc. 06-16-2024 08:45-0400 Diastolic blood pressure 79 mm[Hg] Rosaura Joy LPN [place] [employer] [facility], Inc.; BryantReclip.It, Inc. 06-16-2024 08:45-0400 Heart rate 62 /min Rosaura Joy LPN [facility] [employer] [facility], Inc.; BryantReclip.It, Inc. 06-16-2024 08:45-0400 Systolic blood pressure 115 mm[Hg] Rosaura Joy LPN BryantSolace Lif[employer] [facility], Inc.; [employer], [facility]. 05-24-2024 09:170400 Body height 157.48 cm Nga Waller MA [place] [employer] [facility], Inc.; BryantReclip.It, Inc. 05-24-2024 09:17-0400 Body mass index (BMI) [Ratio] 38.8 kg/m2 Nga Waller MA [place] [employer] [facility], Inc.; BryantReclip.[employer], Inc. 05-24-2024 09:17-0400 Body surface area Derived from formula 1.96 m2 Nga Waller MA [place] [employer] [facility], Inc.; [employer], [facility]. 05-24-2024 09:170400 Body weight 96.22 kg Nga Waller MA [place] [employer] [facility], Inc.; BryantRe[employer], Inc. 05-24-2024 09:17-0400 Diastolic blood pressure 70 mm[Hg] Nga Waller MA [place] [employer] [facility], Inc.; [employer]Re[employer], [employer]. 05-24-2024 09:17-0400 Heart rate 72 /min Nga Waller MA [facility].; [facility]. 05-24-2024 09:17-0400 Systolic blood pressure 99 mm[Hg] Nga Waller MA [facility].; [facility]. 06-03-2023 13:53-0400 Body height 157.48 cm [facility]. 06-03-2023 13:53-0400 Body mass index (BMI) [Ratio] 37.06 kg/m2 [facility].; [facility]. 06-03-2023 13:53-0400 Body surface area Derived from formula 1.92 m2 [facility], [facility]. 06-03-2023 13:53-0400 Body weight 91.9 kg [facility], [facility].; [facility]. 06-03-2023 13:53-0400 Diastolic blood pressure 58 mm[Hg] [facility]. 06-03-2023 13:53-0400 Heart rate 65 /min [facility]. 06-03-2023 13:53-0400 Inhaled oxygen concentration 21 % [facility]. 06-03-2023 13:53-0400 SaO2% (BldA) [Mass fraction] 99 % [facility]. 06-03-2023 13:53-0400 Systolic blood pressure 93 mm[Hg] [facility], [facility].; [facility], [facility]. 05-28-2023 09:01-0400 Body height 157.48 cm Dalia David Justine [facility], [facility].; [facility], [facility]. 05-28-2023 09:01-0400 Body mass index (BMI) [Ratio] 36.76 kg/m2 Dal[facility].; [employer] [facility]. 05-28-2023 09:01-0400 Body surface area Derived from formula 1.92 m2 Dalia Frankie Fletcher LPN [employer] [facility].; [employer] [facility]. 05-28-2023 09:01-0400 Body weight 91.17 kg Dalia Frankie Fletcher LPN [employer] [facility].; [employer] [facility]. 05-28-2023 09:01-0400 Diastolic blood pressure 63 mm[Hg] Dalia Frankie Fletcher LPN [employer] [facility].; [employer] [facility]. 05-28-2023 09:01-0400 Heart rate 98 /min Dalianoemi Fletcher LPN [employer] [facility].; [employer] [facility]. 05-28-2023 09:01-0400 Systolic blood pressure 94 mm[Hg] Dalia Frankie Fletcher LPN [employer] [facility].; [employer] [facility]. 09-16-2022 10:19-0500 Body height 157.48 cm Alison Priyank Rendoner PA-C Work Phone: [employer].; [employer]. 09-16-2022 10:19-0500 Body mass index (BMI) [Ratio] 38.59 kg/m2 Alison Priyank Alexander PA-C Work Phone: [employer].; [employer] [facility]. 09-16-2022 10:19-0500 Body surface area Derived from formula 1.96 m2 Alison Yost Alexander PA-C Work Phone: [employer].; [employer] [facility]. 09-16-2022 10:19-0500 Body weight 95.71 kg Alison J Alexander PA-C Work Phone: [employer].; [employer]. 09-16-2022 10:19-0500 Diastolic blood pressure 67 mm[Hg] Alison Rendoner PA-C Work Phone: [employer].; [employer]. 09-16-2022 10:19-0500 Heart rate 70 /min Alison Rendoner PA-C Work Phone: [employer].; [employer]. 09-16-2022 10:19-0500 Inhaled oxygen concentration 21 % Alison Rendoner PA-C Work Phone: [employer].; [employer]. 09-16-2022 10:19-0500 SaO2% (BldA) [Mass fraction] 99 % Alison Rendoner PA-C Work Phone: [employer].; [employer] 09-16-2022 10:19-0500 Systolic blood pressure 105 mm[Hg] Alison Rendoner PA-C Work Phone: [employer].; [employer]. 05-07-2022 13:11-0400 Body height 157.48 cm Dalia Fletcher LPN [employer].; [employer]. 05-07-2022 13:11-0400 Body mass index (BMI) [Ratio] 37.13 kg/m2 Dalia Fletcher TELETYPE OR VARITYPE KEYBOARD OPERATOR [employer].; [employer]. 05-07-2022 13:11-0400 Body surface area Derived from formula 1.92 m2 Dalia Fletcher LPN [employer].; [employer]. 05-07-2022 13:11-0400 Body temperature 98.8 [degF] Dalia Fletcher LPN [employer].; [employer]. 05-07-2022 13:11-0400 Body weight 92.08 kg Dalia Fletcher LPN [employer].; [employer]. 05-07-2022 13:11-0400 Diastolic blood pressure 73 mm[Hg] Dalia Fletcher LPN [employer].; [employer]. 05-07-2022 13:11-0400 Heart rate 81 /min Dalia Fletcher LPN [facility], [facility].; [employer] [facility]. 05-07-2022 13:11-0400 Systolic blood pressure 111 mm[Hg] Dalia Fletcher LPN [facility], [facility].; [employer] [facility], [facility]. 03-30-2022 09:31-0400 Body weight 94.8 kg Sissy Singh LPN [facility], [facility].; [employer] [facility], [facility]. 03-30-2022 09:31-0400 Diastolic blood pressure 87 mm[Hg] Sissy Singh LPN [facility], [facility].; [employer] [facility], [facility]. 03-30-2022 09:31-0400 Heart rate 102 /min Sissy Singh LPN [employer] [facility], [facility].; [employer] [facility], [facility]. 03-30-2022 09:31-0400 Systolic blood pressure 130 mm[Hg] Sissy Singh LPN [facility] [employer] [facility], [facility]. 03-17-2022 14:49-0400 Body height 157.48 cm Nereyda Alcaraz LPN [facility], [facility].; [employer] [facility], [facility]. 03-17-2022 14:49-0400 Body mass index (BMI) [Ratio] 38.77 kg/m2 Nereyda Alcaraz LPN [facility], [facility].; [employer] [facility], [facility]. 03-17-2022 14:49-0400 Body surface area Derived from formula 1.96 m2 Nereyda Alcaraz LPN [facility], [facility].; [employer] [facility], [facility]. 03-17-2022 14:49-0400 Body weight 96.16 kg Nereyda Alcaraz LPN [employer] [facility], [facility].; [employer], [facility]. 03-17-2022 14:49-0400 Diastolic blood pressure 76 mm[Hg] Nereyda Alcaraz LPN [employer] [facility], [facility].; [employer], [facility]. 03-17-2022 14:49-0400 Heart rate 73 /min Nereyda Alcaraz LPN [employer] [facility], [facility].; [employer], [facility]. 03-17-2022 14:49-0400 Systolic blood pressure 124 mm[Hg] Nereyda Alcaraz LPN [facility], [facility].; [employer] [facility]. 02-26-2022 14:34-0400 Body height 157.48 cm Dalia M Justine TELETYPE OR VARITYPE KEYBOARD OPERATOR [facility], [facility].; [facility], [facility]. 02-26-2022 14:34-0400 Body mass index (BMI) [Ratio] 38.96 kg/m2 Dalia Frankie Fletcher [facility], [facility].; [employer] [facility], [facility]. 02-26-2022 14:34-0400 Body surface area Derived from formula 1.96 m2 Dalia Fletcher TELETYPE OR VARITYPE KEYBOARD OPERATOR [facility], [facility].; [employer] [facility], [facility]. 02-26-2022 14:34-0400 Body weight 96.62 kg Dalia Fletcher LPN [facility], [facility].; [employer], [facility]. 02-26-2022 14:34-0400 Diastolic blood pressure 76 mm[Hg] Dalia Fletcher TELETYPE OR VARITYPE KEYBOARD OPERATOR [facility], [facility].; [employer] [facility], [facility]. 02-26-2022 14:34-0400 Heart rate 87 /min Dalia Fletcher TELETYPE OR VARITYPE KEYBOARD OPERATOR [facility], [facility].; [employer] [facility], [facility]. 02-26-2022 14:34-0400 Systolic blood pressure 131 mm[Hg] Dalia Fletcher TELETYPE OR VARITYPE KEYBOARD OPERATOR [facility], [facility].; [employer], [facility]. 10-07-2021 11:22-0500 Body weight 97.52 kg Sissy Singh LPN [facility], [facility].; [employer], [facility]. 10-07-2021 11:22-0500 Diastolic blood pressure 64 mm[Hg] Sissy Singh LPN [employer] [facility] [employer], [facility]. 10-07-2021 11:22-0500 Heart rate 76 /min Sissyradha Singh LPN [employer] [facility].; [employer] 10-07-2021 11:22-0500 Systolic blood pressure 115 mm[Hg] Sissy Singh LPN [employer] [facility].; [employer], [facility]. 09-30-2021 14:59-0500 Body weight 97.07 kg Sissy Singh TELETYPE OR VARITYPE KEYBOARD OPERATOR [facility], [facility].; [facility], [facility]. 09-30-2021 14:59-0500 Diastolic blood pressure 74 mm[Hg] Sissy Samantha [facility], [facility].; [facility], [facility]. 09-30-2021 14:59-0500 Heart rate 70 /min [facility], [facility].; [facility], [facility]. 09-30-2021 14:59-0500 Systolic blood pressure 120 mm[Hg] Sissyradha Singh [facility], [facility].; [facility], [facility]. 03-25-2021 13:02-0400 Body height 157.48 cm Carlycher Walshelle [facility], [facility].; [facility], [facility]. 03-25-2021 13:02-0400 Body mass index (BMI) [Ratio] 38.04 kg/m2 Carlycher Walshelle [facility], [facility].; [facility], [facility]. 03-25-2021 13:02-0400 Body surface area Derived from formula 1.94 m2 Carly Zaugg [facility], [facility].; [facility], [facility]. 03-25-2021 13:02-0400 Body weight 94.35 kg Carly Walshugg [facility], [facility].; [facility], [facility]. 03-25-2021 13:02-0400 Diastolic blood pressure 73 mm[Hg] Carly Zaugg [facility], [facility].; [facility], [facility]. 03-25-2021 13:02-0400 Heart rate 75 /min Carly Zaugg [facility], [facility].; [employer] [facility], [facility]. 03-25-2021 13:02-0400 Systolic blood pressure 126 mm[Hg] Carly Zaugg [facility], [facility].; [employer] [facility], [facility]. 02-21-2021 13:05-0400 Body height 157.48 cm Dalia Fletcher [facility], [facility].; [employer] [facility], [facility]. 02-21-2021 13:05-0400 Body mass index (BMI) [Ratio] 38.41 kg/m2 Dalia Fletcher [facility], [facility].; [employer] [facility], [facility]. 02-21-2021 13:05-0400 Body surface area Derived from formula 1.95 m2 Dalia Floydlabach [facility], [facility].; [employer], [facility]. 02-21-2021 13:05-0400 Body weight 95.26 kg [facility], [facility].; [employer], [facility]. 02-21-2021 13:05-0400 Diastolic blood pressure 74 mm[Hg] Dalia Fletcher [facility] [employer] [facility], [facility].; [employer] [facility], [facility]. 02-21-2021 13:05-0400 Heart rate 86 /min Dalia Fletcher [facility] [employer] [facility], [facility].; [employer], [facility]. 02-21-2021 13:05-0400 Systolic blood pressure 129 mm[Hg] Dalia Fletcher [facility] [employer] [facility] [employer], [facility]. 02-19-2021 15:05-0400 Body height 157.48 cm Carly Walshelle [facility] [employer] [facility], [facility].; [employer], [facility]. 02-19-2021 15:05-0400 Body mass index (BMI) [Ratio] 38.04 kg/m2 Carly Walshelle [facility] [employer] [facility].; [employer] 02-19-2021 15:05-0400 Body surface area Derived from formula 1.94 m2 Carly Walshelle [facility] [employer] [facility], [facility].; [employer], [facility]. 02-19-2021 15:05-0400 Body weight 94.35 kg Carly Walshugg [facility] [employer] [facility], [facility].; [employer], [facility]. 02-19-2021 15:05-0400 Diastolic blood pressure 70 mm[Hg] Carly Walshugg [facility] [employer] [facility].; [employer] 02-19-2021 15:05-0400 Heart rate 68 /min Carlycher Walshugg [facility].; [employer], [facility]. 02-19-2021 15:050400 Systolic blood pressure 117 mm[Hg] Carly Walshelle [facility], [facility].; [employer] [facility], [facility]. 02-06-2021 13:220400 Body height 157.48 cm Dalia Rickettsach [facility].; [employer] 02-06-2021 13:22-0400 Body mass index (BMI) [Ratio] 37.68 kg/m2 Dalia Frankie FloydJustine [facility], [facility].; [employer], [facility]. 02-06-2021 13:22-0400 Body surface area Derived from formula 1.94 m2 Dalia M Justine [facility] [employer] [facility] [employer], [facility]. 02-06-2021 13:040 Body weight 93.44 kg Dalia Frankie FloydJustine [facility] [employer] [facility]. 02-06-2021 13:220400 Diastolic blood pressure 72 mm[Hg] Dalia Floydlabach [facility] [employer] [facility], [facility].; [employer] [facility]. 02-06-2021 13:22-0400 Heart rate 59 /min Dalia Floydlabach [facility] [employer] [facility], [facility].; [employer], [facility]. 02-06-2021 13:0400 Systolic blood pressure 113 mm[Hg] Dalia Floydlabach [facility] [employer] [facility].; [employer] [facility]. 12-12-2020 14:150500 Body height 157.48 cm Dalia Floydlabach [facility] [employer] [facility].; [employer] [facility]. 12-12-2020 14:15-0500 Body mass index (BMI) [Ratio] 37.68 kg/m2 Dalia Frankie FloydJustine [facility] [employer] [facility], [facility].; [employer], [facility]. 12-12-2020 14:15-0500 Body surface area Derived from formula 1.94 m2 Dalia M Justine [facility] [employer] [facility] [employer] [facility]. 12-12-2020 14:15-0500 Body weight 93.44 kg Dalia M Justine TELETYPE OR VARITYPE KEYBOARD OPERATOR [employer] [facility], [facility].; [employer] [facility]. 12-12-2020 14:15-0500 Diastolic blood pressure 76 mm[Hg] Dalia Rickettscindy RODRIGUEZ [employer] [facility], [facility].; [employer] 12-12-2020 14:15-0500 Heart rate 64 /min Dalia David Justine TELETYPE OR VARITYPE KEYBOARD OPERATOR [employer] [facility].; [employer]. 12-12-2020 14:15-0500 Systolic blood pressure 122 mm[Hg] Dalia David Justine RODRIGUEZ [employer] [facility] [employer].; [employer]. 09-20-2020 14:47-0500 Body height 157.48 cm Dalia Floydlabach TELETYPE OR VARITYPE KEYBOARD OPERATOR [employer] [facility].; [employer], [employer]. 09-20-2020 14:47-0500 Body mass index (BMI) [Ratio] 36.95 kg/m2 Dalia David Justine [facility].; [employer]. 09-20-2020 14:47-0500 Body surface area Derived from formula 1.92 m2 Dalia David Justine RODRIG[employer]Z [employer].; [employer]. 09-20-2020 14:47-0500 Body temperature 98.3 [degF] Dalia David Justine LPN [employer]. 09-20-2020 14:47-0500 Body weight 91.63 kg Dalia David Justine RODRIGUEZ [employer]. 09-20-2020 14:47-0500 Diastolic blood pressure 73 mm[Hg] Dalia David Justine LPN [employer]. 09-20-2020 14:47-0500 Heart rate 84 /min Dalia David uJstine RODRIGUEZ [employer]. 09-20-2020 14:47-0500 Systolic blood pressure 103 mm[Hg] Dalia David Justine RODRIGUEZ [employer]. 09-16-2020 10:02-0500 Body temperature 98.6 [degF] Sissy Singh LPN [facility], [facility].; [facility]. 09-16-2020 10:02-0500 Body weight 89.81 kg Sissy Singh LPN [facility], [facility].; [facility], [facility]. 09-16-2020 10:02-0500 Diastolic blood pressure 83 mm[Hg] Sissy Singh LPN [facility], [facility].; [facility], [facility]. 09-16-2020 10:02-0500 Heart rate 83 /min Sissy Singh LPN [facility], [facility].; [facility], [facility]. 09-16-2020 10:02-0500 Systolic blood pressure 115 mm[Hg] Sissy Singh LPN [facility], [facility].; [facility], [facility]. 08-22-2020 15:50-0500 Body height 157.48 cm Stacie Foy RN [facility], [facility].; [facility], [facility]. 08-22-2020 15:50-0500 Body mass index (BMI) [Ratio] 36.95 kg/m2 Stacie Foy RN [facility], [facility].; [facility], [facility]. 08-22-2020 15:50-0500 Body surface area Derived from formula 1.92 m2 Stacie Foy RN [facility], [facility].; [facility] 08-22-2020 15:50-0500 Body temperature 97.3 [degF] Stacie Foy RN [facility].; [employer] [facility], [facility]. 08-22-2020 15:50-0500 Body weight 91.63 kg Stacie Foy RN [facility].; [employer], [facility]. 08-22-2020 15:50-0500 Diastolic blood pressure 66 mm[Hg] Stacie Foy RN [facility], [facility].; [employer] 08-22-2020 15:50-0500 Heart rate 77 /min Stacie Foy RN [facility], [facility].; [employer] 08-22-2020 15:50-0500 Systolic blood pressure 101 mm[Hg] Stacie Foy RN [facility], [facility].; [employer], [facility]. 08-09-2020 14:02-0400 Body weight 92.08 kg Carly Roth LPN [facility] [employer] 08-09-2020 14:02-0400 Diastolic blood pressure 82 mm[Hg] Carly Roth LPN [employer] [facility].; [employer] 08-09-2020 14:02-0400 Heart rate 71 /min Carly Roth LPN [employer] [facility].; [employer] 08-09-2020 14:02-0400 Systolic blood pressure 115 mm[Hg] Carly Ira RODRIGUEZ [employer] [facility].; [employer] 05-30-2020 13:07-0400 Body height 157.48 cm Mariola Zuniga LPN [facility] [employer] [facility].; [employer] 05-30-2020 13:07-0400 Body mass index (BMI) [Ratio] 36.95 kg/m2 Mariola Zuniga LPN [employer] [facility].; [employer] 05-30-2020 13:07-0400 Body surface area Derived from formula 1.92 m2 Mariola Zuniga LPN [employer] 05-30-2020 13:07-0400 Body weight 91.63 kg Mariola Zuniga LPN [employer] [facility].; [employer] 05-30-2020 13:07-0400 Diastolic blood pressure 62 mm[Hg] Mariola Zuniga LPN [employer] 05-30-2020 13:07-0400 Heart rate 70 /min Mariola Zuniga LPN [employer] [facility].; [employer] 05-30-2020 13:07-0400 Systolic blood pressure 105 mm[Hg] Mariola Zungia LPN [employer] 05-06-2020 11:40-0400 Body height 157.48 cm Dalia Rickettsach [facility] [employer] [facility], [facility].; [employer]. 05-06-2020 11:40-0400 Body mass index (BMI) [Ratio] 36.76 kg/m2 Dalia David Justine [facility] [employer] [facility].; [employer]. 05-06-2020 11:40-0400 Body surface area Derived from formula 1.92 m2 Dalia David Justine [facility] [employer] [facility], [facility].; [employer] [facility]. 05-06-2020 11:40-0400 Body weight 91.17 kg Dalia David Justine [facility], [facility].; [employer]. 05-06-2020 11:40-0400 Diastolic blood pressure 63 mm[Hg] Dalia David Justine [facility], [employer].; [employer]. 05-06-2020 11:40-0400 Heart rate 77 /min Dalia David Justine [facility] [facility], [facility].; [employer]. 05-06-2020 11:40-0400 Systolic blood pressure 103 mm[Hg] Dalia David Justine [facility], [facility].; [employer] [facility]. 04-22-2020 08:08-0400 Body height 157.48 cm Lesly Pathak TELETYPE OR VARITYPE KEYBOARD OPERATOR Bryant [employer] [facility], [facility].; [employer]. 04-22-2020 08:08-0400 Body mass index (BMI) [Ratio] 35.85 kg/m2 Lesly Pathak LPN [facility]Sol[facility] [facility].; [employer]. 04-22-2020 08:08-0400 Body surface area Derived from formula 1.9 m2 Lesly Pathak TELETYPE OR VARITYPE KEYBOARD OPERATOR BryantSol[facility] [employer] [facility] Hospital[facility].; [employer]. 04-22-2020 08:08-0400 Body temperature 99.2 [degF] Lesly Pathak [facility].; [employer]. 04-22-2020 08:08-0400 Body weight 88.91 kg Lesly Pathak TELETYPE OR VARITYPE KEYBOARD OPERATOR [employer]Order [employer].; [employer]. 04-22-2020 08:08-0400 Diastolic blood pressure 71 mm[Hg] Lesly Pathak LPN [facility], [facility].; [employer] [place] [employer] [facility], [facility]. 04-22-2020 08:08-0400 Heart rate 93 /min Lesly Pathak LPN [facility], [facility].; [facility], [facility]. 04-22-2020 08:08-0400 Inhaled oxygen concentration 21 % Lesly Pathak TELETYPE OR VARITYPE KEYBOARD OPERATOR [facility], [facility].; [facility], [facility]. 04-22-2020 08:08-0400 SaO2% (BldA) [Mass fraction] 100 % Lesly Pathak LPN [facility], [facility].; [employer] [place] [employer] [facility], [facility]. 04-22-2020 08:08-0400 Systolic blood pressure 104 mm[Hg] Lesly Pathak LPN [facility], [facility].; [place] [employer] [facility], [facility]. 04-08-2020 11:04-0400 Body height 157.48 cm Mariola Zuniga LPN [facility] [employer] [facility], Inc.; [employer] [place] [employer] [facility], [facility]. 04-08-2020 11:04-0400 Body mass index (BMI) [Ratio] 37.31 kg/m2 Mariola Zuniga LPN [facility], [facility].; Bryant [employer] [facility], [facility]. 04-08-2020 11:04-0400 Body surface area Derived from formula 1.93 m2 Mariola Zuniga LPN [facility], [facility].; Bryant [employer] [facility], [facility]. 04-08-2020 11:04-0400 Body weight 92.53 kg Mariola Zuniga LPN [facility] [employer] [facility], Inc.; [employer], [employer]. 04-08-2020 11:04-0400 Diastolic blood pressure 65 mm[Hg] Mariola Zuniga LPN [place] [employer] [facility], [facility].; [employer], [employer]. 04-08-2020 11:04-0400 Heart rate 86 /min Mariola Zuniga LPN [place] [employer] [facility], Inc.; [employer], [employer]. 04-08-2020 11:04-0400 Inhaled oxygen concentration 21 % Mariola Zuniga LPN [place] [employer] [facility], Inc.; [employer], [employer]. 04-08-2020 11:04-0400 SaO2% (BldA) [Mass fraction] 99 % Mariola Zuniga LPN [facility], [facility].; [facility], [facility]. 04-08-2020 11:04-0400 Systolic blood pressure 115 mm[Hg] Mariola Zuniga LPN [facility], [facility].; [facility], Inc. 10-18-2019 11:22-0500 Body height 157.48 cm Mariola Zuniga LPN [facility] [employer] [facility], Inc.; [place] [employer] [facility], [facility]. 10-18-2019 11:22-0500 Body mass index (BMI) [Ratio] 36.21 kg/m2 [facility], Inc.; [facility], [facility]. 10-18-2019 11:22-0500 Body surface area Derived from formula 1.9 m2 Mariola Zuniga LPN [facility], Inc.; [facility], [facility]. 10-18-2019 11:22-0500 Body temperature 98.1 [degF] Mariola Zuniga LPN [facility] lorna [facility], Inc.; [place] [employer] [facility], [facility]. 10-18-2019 11:22-0500 Body weight 89.81 kg Mariola Zuniga LPN [facility], Inc.; [place] [employer] [facility], Inc. 10-18-2019 11:22-0500 Diastolic blood pressure 67 mm[Hg] Mariola Zuniga LPN [facility], Inc.; [place] [employer] [facility], [facility]. 10-18-2019 11:22-0500 Heart rate 73 /min Mariola [facility]iga LPN [facility], Inc.; [place] [employer] [facility], [facility]. 10-18-2019 11:22-0500 Inhaled oxygen concentration 21 % Mariola Zuniga LPN [place] [employer] [facility], [facility].; [place] [employer] [facility], [employer]. 10-18-2019 11:22-0500 SaO2% (BldA) [Mass fraction] 98 % Mariola Zuniga LPN [facility], Inc.; [place] [employer], Inc. 10-18-2019 11:22-0500 Systolic blood pressure 106 mm[Hg] Mariola Zuniga LPN [employer], Inc.; [employer], Inc. 09-04-2019 09:31-0500 Body height 157.48 cm Mariola Zuniga LPN [employer], Inc.; [employer], Inc. 09-04-2019 09:31-0500 Body mass index (BMI) [Ratio] 35.12 kg/m2 Mariola Zuniga LPN [employer], Inc.; [employer], Inc. 09-04-2019 09:31-0500 Body surface area Derived from formula 1.88 m2 Mariola Zuniga LPN [employer], Inc.; [employer], Inc. 09-04-2019 09:31-0500 Body weight 87.09 kg Mariola Nadia RODRIGUEZ [employer], Inc.; [employer], Inc. 09-04-2019 09:31-0500 Diastolic blood pressure 60 mm[Hg] Mariola Zuniga LPN [employer], Inc.; [employer], Inc. 09-04-2019 09:31-0500 Heart rate 62 /min Mariolaelysia Zuniga [facility] Hospital[facility]he[facility], Inc.; [employer], Inc. 09-04-2019 09:31-0500 Systolic blood pressure 116 mm[Hg] Mariola Zuniga LPN [employer], Inc.; [employer], Inc. 05-04-2019 09:35-0400 Body height 157.48 cm Mariola Zuniga LPN Bryant [employer], Inc.; [employer], Inc. 05-04-2019 09:35-0400 Body mass index (BMI) [Ratio] 34.82 kg/m2 Mariola Zuniga LPN [employer], Inc.; [employer], Inc. 05-04-2019 09:35-0400 Body surface area Derived from formula 1.87 m2 Mariola Zuniga LPN [employer], Inc.; [employer] Inc. 05-04-2019 09:35-0400 Body weight 86.35 kg Mariola Zuniga LPN [employer]Rheon[employer], Inc.; [employer], Inc. 05-04-2019 09:35-0400 Diastolic blood pressure 63 mm[Hg] Mariola Zuniga LPN [employer], Inc.; [employer], Inc. 05-04-2019 09:35-0400 Heart rate 56 /min Mariola Zuniga LPN Bryant [employer], Inc.; [employer], Inc. 05-04-2019 09:35-0400 Systolic blood pressure 110 mm[Hg] Mariola Zuniga LPN [employer], Inc.; [employer], Inc. 04-03-2019 09:05-0400 Body height 157.48 cm Mariola Zuniga LPN [employer]Rheon[employer], Inc.; [employer], Inc. 04-03-2019 09:05-0400 Body mass index (BMI) [Ratio] 34.2 kg/m2 Mariola Zuniga LPN [employer], Inc.; [employer], Inc. 04-03-2019 09:05-0400 Body surface area Derived from formula 1.86 m2 Mariola Zuniga LPN [employer], Inc.; [employer], Inc. 04-03-2019 09:05-0400 Body weight 84.82 kg Mariola Zuniga LPN [employer]Rheon[employer], Inc.; [employer], Inc. 04-03-2019 09:05-0400 Diastolic blood pressure 82 mm[Hg] Mariola Zuniga LPN [employer], Inc.; [employer], Inc. 04-03-2019 09:05-0400 Heart rate 65 /min Mariola Zuniga LPN [employer], Inc.; [employer], Inc. 04-03-2019 09:05-0400 Systolic blood pressure 122 mm[Hg] Mariola Zuniga LPN [employer], Inc.; [employer], Inc. 02-20-2019 13:48-0400 Body height 157.48 cm Mariola Zuniga LPN [employer]Rheonix, Inc.; [employer], Inc. 02-20-2019 13:48-0400 Body mass index (BMI) [Ratio] 35.3 kg/m2 Mariola Chaparromelissa RODRIGUEZ [place] [employer] [facility], Inc.; BryantStand Offer Inc. 02-20-2019 13:48-0400 Body surface area Derived from formula 1.88 m2 Mariola Parkinsonkeyonna RODRIGUEZ [place] [employer], Inc.; BryantOrder Mapper. 02-20-2019 13:48-0400 Body temperature 97.4 [degF] Mariola Parkinsonkeyonna [facility] lorna [employer], Inc.; Bryant [employer], Inc. 02-20-2019 13:48-0400 Body weight 87.54 kg Mariola Chaparromelissa [facility] Hospital[facility], Inc.; BryantOrder Mapper. 02-20-2019 13:48-0400 Diastolic blood pressure 79 mm[Hg] Mariola Parkinsonkeyonna [facility] [employer], Inc.; BryantOrder Mapper. 02-20-2019 13:48-0400 Heart rate 88 /min Mariola Parkinsonkeyonna RODRIGUEZ [facility] CenterBill[facility], Inc.; BryantOrder Mapper. 02-20-2019 13:48-0400 Inhaled oxygen concentration 21 % Mariola Chaparromelissa [facility] [employer], Inc.; [employer], Inc. 02-20-2019 13:48-0400 SaO2% (BldA) [Mass fraction] 99 % Mariola Iggykeyonna [facility] [employer], Inc.; BryantStand Offer Inc. 02-20-2019 13:48-0400 Systolic blood pressure 112 mm[Hg] Mariola Wekeyonna RODRIGUEZ Bryant [employer], Inc.; BryantOrder Mapper. 01-09-2019 08:10-0400 Body height 157.48 cm Mckenna Limon RN [employer] [place] [employer], [employer].; Bryant [employer]. 01-09-2019 08:10-0400 Body mass index (BMI) [Ratio] 34.39 kg/m2 Mckenna Limon RN [place] [employer], Inc.; [employer] [place] [employer]. 01-09-2019 08:10-0400 Body surface area Derived from formula 1.86 m2 Mckenna Limon RN [employer], Inc.; [employer]. 01-09-2019 08:10-0400 Body temperature 99.5 [degF] Mckenna Limon RN [employer], [employer].; [employer] Inc. 01-09-2019 08:10-0400 Body weight 85.28 kg Mckenna Limon RN [employer], [employer].; [employer]. 01-09-2019 08:10-0400 Diastolic blood pressure 79 mm[Hg] Mckenna Limon RN [employer], [employer].; [employer]. 01-09-2019 08:10-0400 Heart rate 118 /min Mckenna Limon RN Bryant [employer], [employer].; [employer]. 01-09-2019 08:10-0400 Systolic blood pressure 136 mm[Hg] Mckenna Limon RN [employer], [employer].; [employer]. 12-26-2018 13:33-0400 Body height 157.48 cm Payton Stuckey TELETYPE OR VARITYPE KEYBOARD OPERATOR [employer], Inc.; [employer]. 12-26-2018 13:33-0400 Body mass index (BMI) [Ratio] 34.75 kg/m2 Payton Stuckey TELETYPE OR VARITYPE KEYBOARD OPERATOR [employer], Inc.; [employer], Inc. 12-26-2018 13:33-0400 Body surface area Derived from formula 1.87 m2 Payton Stuckey TELETYPE OR VARITYPE KEYBOARD OPERATOR [employer], Inc.; [employer]. 12-26-2018 13:33-0400 Body temperature 98.3 [degF] Bianca Cobos TELETYPE OR VARITYPE KEYBOARD OPERATOR [employer], Inc.; [employer]. 12-26-2018 13:33-0400 Body weight 86.18 kg PaytonDot Cobos TELETYPE OR VARITYPE KEYBOARD OPERATOR [employer], [employer].; [employer]. 12-26-2018 13:33-0400 Diastolic blood pressure 78 mm[Hg] Bianca Cobos LPN [employer], Inc.; [employer]. 12-26-2018 13:33-0400 Heart rate 73 /min Bianca Cobos TELETYPE OR VARITYPE KEYBOARD OPERATOR [employer], Inc.; [employer], Inc. 12-26-2018 13:33-0400 Systolic blood pressure 130 mm[Hg] Bianca Cobos MICHAEL [employer], Inc.; [employer], Inc. 11-18-2018 13:17-0500 Body height 157.48 cm Mariola Zuniga LPN BryantAlvine Pharmaceuticals [facility], Inc.; [employer], Inc. 11-18-2018 13:17-0500 Body mass index (BMI) [Ratio] 33.84 kg/m2 Mariola Zuniga LPN [employer], Inc.; [employer], Inc. 11-18-2018 13:17-0500 Body surface area Derived from formula 1.85 m2 Mariola Zuniga LPN [employer], Inc.; [employer], Inc. 11-18-2018 13:17-0500 Body weight 83.92 kg Mariola Zuniga LPN [employer]Rheonix, Inc.; [employer], Inc. 11-18-2018 13:17-0500 Diastolic blood pressure 79 mm[Hg] Mariola Zuniga LPN [employer], Inc.; [employer], Inc. 11-18-2018 13:17-0500 Heart rate 83 /min Mariola Zuniga LPN [employer]Rheon[employer], Inc.; [employer], Inc. 11-18-2018 13:17-0500 Systolic blood pressure 110 mm[Hg] Mariola Zuniga LPN [employer], Inc.; [employer], Inc. 11-09-2018 09:47-0500 Body height 157.48 cm Mariola Zuniga LPN [employer]Rheonix, Inc.; [employer], Inc. 11-09-2018 09:47-0500 Body mass index (BMI) [Ratio] 33.84 kg/m2 Mariola Zuniga LPN [employer], Inc.; [employer], Inc. 11-09-2018 09:47-0500 Body surface area Derived from formula 1.85 m2 Mariola Zuniga LPN [employer], Inc.; [employer] Inc. 11-09-2018 09:47-0500 Body weight 83.92 kg Mariola Nadia RODRIGUEZ [employer]Alvine [employer] [facility], Inc.; [employer] Inc. 11-09-2018 09:47-0500 Diastolic blood pressure 69 mm[Hg] Mariola Zuniga LPN [employer], Inc.; [employer] Inc. 11-09-2018 09:47-0500 Heart rate 76 /min Mariola Zuniga LPN [employer]Rheon[employer], Inc.; [employer], Inc. 11-09-2018 09:47-0500 Systolic blood pressure 134 mm[Hg] Mariola Zuniga LPN [employer], Inc.; [employer], Inc. 09-13-2017 08:32-0500 Body height 157.48 cm Mariola Zuniga LPN [employer]Rheonix, Inc.; [employer] Inc. 09-13-2017 08:32-0500 Body mass index (BMI) [Ratio] 37.49 kg/m2 Mariola Zuniga LPN [employer], Inc.; [employer], [employer]. 09-13-2017 08:32-0500 Body surface area Derived from formula 1.93 m2 Mariola Zuniga LPN [employer], Inc.; [employer], Inc. 09-13-2017 08:32-0500 Body temperature 97.1 [degF] Mariola Zuniga LPN [facility] [employer], Inc.; [employer] Inc. 09-13-2017 08:32-0500 Body weight 92.99 kg Mariola Zuniga LPN Bryant [employer], Inc.; [employer]. 09-13-2017 08:32-0500 Diastolic blood pressure 68 mm[Hg] Mariola Zuniga LPN [employer], Inc.; [employer] Inc. 09-13-2017 08:32-0500 Heart rate 73 /min Mariola Zuniga LPN [employer]Rheonix, Inc.; [employer]. 09-13-2017 08:32-0500 Inhaled oxygen concentration 21 % Mariola Wengerd TELETYPE OR VARITYPE KEYBOARD OPERATOR BryantStand Offer Inc.; [employer]. 09-13-2017 08:32-0500 SaO2% (BldA) [Mass fraction] 99 % Mariola Zuniga LPN BryantOrder Mapper.; [employer]. 09-13-2017 08:32-0500 Systolic blood pressure 106 mm[Hg] Mariola Zuniga LPN BryantStand Offer Inc.; [employer]. 06-09-2017 09:01-0400 Body height 157.48 cm Dalia Fletcher [facility].; [employer]. 06-09-2017 09:01-0400 Body mass index (BMI) [Ratio] 36.4 kg/m2 Dalia Frankie Fletcher [facility].; [employer]. 06-09-2017 09:01-0400 Body surface area Derived from formula 1.91 m2 Dalia Fletcher TELETYPE OR VARITYPE KEYBOARD OPERATOR BryantOrder M[employer].; [employer]. 06-09-2017 09:01-0400 Body temperature 97.7 [degF] Dalia David Justine [facility] Hospital[facility].; [employer]. 06-09-2017 09:01-0400 Body weight 90.27 kg Dalia Fletcher TELETYPE OR VARITYPE KEYBOARD OPERATOR BryantOrder [employer].; [employer]. 06-09-2017 09:01-0400 Diastolic blood pressure 73 mm[Hg] Dalia Fletcher TELETYPE OR VARITYPE KEYBOARD OPERATOR [employer].; [employer]. 06-09-2017 09:01-0400 Heart rate 72 /min Dalia Fletcher [facility].; [employer]. 06-09-2017 09:01-0400 Systolic blood pressure 120 mm[Hg] Dalia Fletcher LPN BryantOrder Mapper.; [employer]. 06-03-2017 16:14-0400 Body height 157.48 cm Alison Alexander PA-C Work Phone: BryantOrder Mapper.; [employer]. 06-03-2017 16:140400 Body mass index (BMI) [Ratio] 36.95 kg/m2 Alison Alexander PA-C Work Phone: [employer].; [employer]. 06-03-2017 16:140400 Body surface area Derived from formula 1.92 m2 Alison Alexander PA-C Work Phone: [employer].; [employer]. 06-03-2017 16:140400 Body temperature 98 [degF] Alison Alexander PA-C Work Phone: [employer].; [employer]. 06-03-2017 16:140400 Body weight 91.63 kg Alison Alexander PA-C Work Phone: [employer].; [employer] 06-03-2017 16:14-0400 Diastolic blood pressure 74 mm[Hg] Alison Alexander PA-C Work Phone: [employer].; [employer] 06-03-2017 16:14-0400 Heart rate 83 /min Alison Alexander PA-C Work Phone: [employer].; [employer] 06-03-2017 16:140400 Inhaled oxygen concentration 21 % Alison Alexander PA-C Work Phone: [employer].; [employer]. 06-03-2017 16:14-0400 SaO2% (BldA) [Mass fraction] 98 % Alison Alexander PA-C Work Phone: [employer].; [employer]. 06-03-2017 16:140400 Systolic blood pressure 119 mm[Hg] Alison Alexander PA-C Work Phone: [employer].; [employer]. 01-21-2017 15:12-0400 Body height 157.48 cm Isatu Bautista RN Work Phone: [employer].; [employer]. 01-21-2017 15:12-0400 Body mass index (BMI) [Ratio] 37.13 kg/m2 Isatu Bautista RN Work Phone: [employer].; [employer] 01-21-2017 15:12-0400 Body surface area Derived from formula 1.92 m2 Isatu Bautista RN Work Phone: [employer].; [employer]. 01-21-2017 15:12-0400 Body weight 92.08 kg Isatu Bautista RN Work Phone: [employer].; [employer] 01-21-2017 15:12-0400 Diastolic blood pressure 82 mm[Hg] Isatu Bautista RN Work Phone: [employer].; [employer]. 01-21-2017 15:12-0400 Heart rate 76 /min Isatu Bautista RN Work Phone: [employer].; [employer]. 01-21-2017 15:12-0400 Systolic blood pressure 122 mm[Hg] Isatu Bautista RN Work Phone: [employer].; [employer]. 01-01-2017 13:47-0400 Body height 157.48 cm Bladimire Neha Jacobson TELETYPE OR VARITYPE KEYBOARD OPERATOR [employer].; [employer] 01-01-2017 13:47-0400 Body mass index (BMI) [Ratio] 37.31 kg/m2 Neilee L Vess TELETYPE OR VARITYPE KEYBOARD OPERATOR [employer].; [employer]. 01-01-2017 13:47-0400 Body surface area Derived from formula 1.93 m2 Neilee L Vess TELETYPE OR VARITYPE KEYBOARD OPERATOR [employer].; [employer] 01-01-2017 13:47-0400 Body temperature 99.3 [degF] Neilee L Vess TELETYPE OR VARITYPE KEYBOARD OPERATOR [employer].; [employer]. 01-01-2017 13:47-0400 Body weight 92.53 kg Roya Jacobson TELETYPE OR VARITYPE KEYBOARD OPERATOR [employer], Inc.; [employer] Inc[employer] 01-01-2017 13:47-0400 Diastolic blood pressure 85 mm[Hg] Roya Jacobson TELETYPE OR VARITYPE KEYBOARD OPERATOR [employer], Inc.; [employer], [employer]. 01-01-2017 13:47-0400 Heart rate 80 /min Roya Jacobson TELETYPE OR VARITYPE KEYBOARD OPERATOR [employer], Inc.; [employer], Inc. 01-01-2017 13:47-0400 Inhaled oxygen concentration 21 % Roya Jacobson TELETYPE OR VARITYPE KEYBOARD OPERATOR [employer], Inc.; [employer], [employer]. 01-01-2017 13:47-0400 SaO2% (BldA) [Mass fraction] 98 % Roya Jacobson TELETYPE OR VARITYPE KEYBOARD OPERATOR [employer], Inc.; [employer], Inc. 01-01-2017 13:47-0400 Systolic blood pressure 120 mm[Hg] Roya Jacobson TELETYPE OR VARITYPE KEYBOARD OPERATOR [employer], Inc.; [employer], Inc. 12-18-2016 14:03-0500 Body height 157.48 cm Mariola Zuniga LPN [employer]Rheonix, Inc.; [employer], [employer]. 12-18-2016 14:03-0500 Body mass index (BMI) [Ratio] 37.13 kg/m2 Mariola Zuniga LPN [employer], Inc.; [employer], Inc. 12-18-2016 14:03-0500 Body surface area Derived from formula 1.92 m2 Mariola Zuniga LPN [employer], Inc.; [employer], [employer]. 12-18-2016 14:03-0500 Body weight 92.08 kg Mariola Zuniga [facility] Hospital[facility], Inc.; [employer], [employer]. 12-18-2016 14:03-0500 Diastolic blood pressure 62 mm[Hg] Mariola Zuniga LPN [employer], Inc.; [employer], Inc. 12-18-2016 14:03-0500 Heart rate 80 /min Mariola Zuniga LPN [employer]Rheonix, Inc.; [employer] 12-18-2016 14:03-0500 Systolic blood pressure 105 mm[Hg] Mariola Nadia RODRIGUEZ [employer], Inc.; [employer], Inc. 07-22-2016 12:56-0400 Body height 157.48 cm Mariola Wekeyonna RODRIGUEZ [place] [employer] [facility], Inc.; [employer], Inc. 07-22-2016 12:56-0400 Body mass index (BMI) [Ratio] 35.85 kg/m2 Mariola Zuniga LPN Bryant [employer], Inc.; [employer], Inc. 07-22-2016 12:56-0400 Body surface area Derived from formula 1.9 m2 Mariola Zuniga LPN [employer], Inc.; [employer], Inc. 07-22-2016 12:56-0400 Body weight 88.91 kg Mariola Zuniga LPN [place] [employer], Inc.; [employer], Inc. 07-22-2016 12:56-0400 Diastolic blood pressure 66 mm[Hg] Mariolaelysia Zuniga LPN [employer], Inc.; [employer], Inc. 07-22-2016 12:56-0400 Heart rate 65 /min Mariolaelysia Zuniga LPN [place] [employer], Inc.; [employer], Inc. 07-22-2016 12:56-0400 Systolic blood pressure 110 mm[Hg] Mairola Zuniga LPN [employer], Inc.; [employer], Inc. 03-06-2016 14:37-0400 Body height 157.48 cm Mariola Zuniga LPN Bryant [employer], Inc.; [employer], [employer]. 03-06-2016 14:37-0400 Body mass index (BMI) [Ratio] 35.12 kg/m2 Mariola Zuniga LPN [employer], Inc.; [employer], Inc. 03-06-2016 14:37-0400 Body surface area Derived from formula 1.88 m2 Mariola Zuniga LPN [employer], Inc.; [employer], Inc. 03-06-2016 14:37-0400 Body weight 87.09 kg Mariola Wekeyonna RODRIGUEZ [employer]Alvine [employer] [facility], Inc.; [employer] 03-06-2016 14:37-0400 Diastolic blood pressure 75 mm[Hg] Mariola Zuniga LPN [employer], Inc.; [employer], Inc. 03-06-2016 14:37-0400 Heart rate 82 /min Mariola Zuniga LPN BryantRheonix, Inc.; [employer], Inc. 03-06-2016 14:37-0400 Systolic blood pressure 127 mm[Hg] Mariolaelysia Zuniga LPN [employer], Inc.; [employer], Inc. 02-27-2016 14:46-0400 Body height 157.48 cm Mariola Zuniga LPN BryantRheonix, Inc.; [employer], [employer]. 02-27-2016 14:46-0400 Body mass index (BMI) [Ratio] 36.4 kg/m2 Mariola Zuniga LPN [employer], Inc.; [employer], Inc. 02-27-2016 14:46-0400 Body surface area Derived from formula 1.91 m2 Mariola Zuniga LPN [employer], Inc.; [employer], Inc. 02-27-2016 14:46-0400 Body weight 90.27 kg Mariola Nadia RODRIGUEZ [employer], Inc.; [employer], Inc. 02-27-2016 14:46-0400 Diastolic blood pressure 79 mm[Hg] Mariola Zuniga LPN [employer], Inc.; [employer]. 02-27-2016 14:46-0400 Heart rate 80 /min Mariola Zuniga LPN BryantRheonix, Inc.; [employer]. 02-27-2016 14:46-0400 Systolic blood pressure 124 mm[Hg] Mariola Zuniga LPN [employer], Inc.; [employer]. 02-13-2016 14:42-0400 Body height 157.48 cm Mariola Zuniga LPN [facility], Inc.; [employer], Inc. 02-13-2016 14:42-0400 Body mass index (BMI) [Ratio] 36.58 kg/m2 Mariola Wekeyonna RODRIGUEZ [place] [employer], Inc.; [employer], Inc. 02-13-2016 14:42-0400 Body surface area Derived from formula 1.91 m2 Mariolaelysia Zuniga LPN [place] [employer], Inc.; [employer], Inc. 02-13-2016 14:42-0400 Body temperature 97.1 [degF] Mariola Parkinsonkeyonna [facility]RIGUEZ [facility] [employer], Inc.; Bryant [employer], Inc. 02-13-2016 14:42-0400 Body weight 90.72 kg Mariola Parkinsonkeyonna RODRIGUEZ [facility], Inc.; [employer], Inc. 02-13-2016 14:42-0400 Diastolic blood pressure 61 mm[Hg] Mariola Iggykeyonna RODRIGUEZ Bryant [employer], Inc.; [employer], Inc. 02-13-2016 14:42-0400 Heart rate 61 /min Mariola Parkinsonkeyonna RODRIGUEZ [place] [employer] [facility], Inc.; [employer], Inc. 02-13-2016 14:42-0400 Systolic blood pressure 105 mm[Hg] Mariola Wekeyonna RODRIGUEZ [employer], Inc.; [employer], Inc. 12-23-2015 11:26-0400 Body height 157.48 cm Mckenna Limon RN [employer] 12-23-2015 11:26-0400 Body mass index (BMI) [Ratio] 36.03 kg/m2 Mckenna Limon RN [employer].; [employer]. 12-23-2015 11:26-0400 Body surface area Derived from formula 1.9 m2 Mckenna Limon RN [employer]. 12-23-2015 11:26-0400 Body temperature 98.5 [degF] Mckenna Limon RN [employer].; [employer]. 12-23-2015 11:26-0400 Body weight 89.36 kg Mckenna Limon RN [employer].; [employer]. 12-23-2015 11:26-0400 Diastolic blood pressure 75 mm[Hg] Mckenna Limon RN [employer].; [employer] 12-23-2015 11:26-0400 Heart rate 71 /min Mckenna Limon RN [employer].; [employer]. 12-23-2015 11:26-0400 Systolic blood pressure 121 mm[Hg] Mckenna Limon RN [employer].; [employer]. 02-11-2015 13:48-0400 Body temperature 99.9 [degF] Christina Weinstein LPN [employer].; [employer]. 02-11-2015 13:48-0400 Body weight 92.08 kg Christina Weinstein LPN [employer]. 02-11-2015 13:48-0400 Diastolic blood pressure 63 mm[Hg] Christina Weinstein LPN [employer]. 02-11-2015 13:48-0400 Heart rate 100 /min Christina Weinstein LPN [employer].; [employer]. 02-11-2015 13:48-0400 Systolic blood pressure 99 mm[Hg] Christina Weinstein LPN [employer].; [employer]. 01-21-2015 16:45-0400 Body weight 93.44 kg Christina Weinstein LPN [employer].; [employer]. 01-21-2015 16:45-0400 Diastolic blood pressure 84 mm[Hg] Christina Weinstein LPN [employer].; [employer]. 01-21-2015 16:45-0400 Heart rate 101 /min Christina Weinstein LPN [employer].; [employer]. 01-21-2015 16:45-0400 Systolic blood pressure 124 mm[Hg] Christina Weinstein LPN [employer].; [employer]. 12-21-2014 14:44-0400 Body height 157.48 cm Mariola Nadia RODRIGUEZ [facility] [employer] [facility], Inc.; [employer] [facility]. 12-21-2014 14:44-0400 Body mass index (BMI) [Ratio] 38.41 kg/m2 [facility]elysia [facility]iga [facility], [facility].; [employer] [facility] [employer] [facility]. 12-21-2014 14:44-0400 Body surface area Derived from formula 1.95 m2 Mariola Zuniga LPN [facility], [facility].; [employer] [facility], [facility]. 12-21-2014 14:44-0400 Body temperature 97.9 [degF] Mariolaelysia Zuniga LPN [facility], Inc.; [employer], [employer]. 12-21-2014 14:44-0400 Body weight 95.26 kg Mariola Zuniga LPN [facility] [employer] [facility], Inc.; [employer]. 12-21-2014 14:44-0400 Diastolic blood pressure 73 mm[Hg] [facility] [employer] [facility], Inc.; [employer]. 12-21-2014 14:44-0400 Heart rate 94 /min Mariolaelysia Zuniga [facility] [employer] [facility], Inc.; [employer]. 12-21-2014 14:44-0400 Inhaled oxygen concentration 21 % Mariola Zuniga [facility], Inc.; [employer]. 12-21-2014 14:44-0400 SaO2% (BldA) [Mass fraction] 99 % Mariola Zuniga LPN [employer] [facility], [facility].; [employer]. 12-21-2014 14:44-0400 Systolic blood pressure 122 mm[Hg] Mariola Zuniga LPN [employer] [facility] [employer] [facility], Inc.; [employer], [employer]. 11-23-2014 15:21-0500 Body height 157.48 cm Mariola Zuniga LPN [facility] [employer] [facility], Inc.; [employer]. 11-23-2014 15:21-0500 Body mass index (BMI) [Ratio] 38.04 kg/m2 Mariola Parkinsonkeyonna RODRIGUEZ [facility] [employer] [facility], [facility].; [employer], [facility]. 11-23-2014 15:21-0500 Body surface area Derived from formula 1.94 m2 Mariola Nadia RODRIGUEZ [employer] [facility] [employer] [facility], Inc.; [employer] 11-23-2014 15:21-0500 Body weight 94.35 kg Mariola Parkinsonkeyonna RODRIGUEZ [employer] [facility] [employer] [facility], Inc.; [employer] 11-23-2014 15:21-0500 Diastolic blood pressure 72 mm[Hg] Mariola Nadia [facility]INGPaul [facility] [employer] [facility], Inc.; [employer], [facility]. 11-23-2014 15:21-0500 Heart rate 91 /min Mariola Parkinsonkeyonna RODRIGUEZ [employer] [facility], Inc.; [employer], [employer]. 11-23-2014 15:21-0500 Systolic blood pressure 119 mm[Hg] Mariola Parkinsonkeyonna RODRIGUEZ [employer] [facility].; [employer], [employer]. 08-17-2014 13:56-0500 Body height 157.48 cm Alison Priyank Rendoner PA-C Work Phone: [employer].; [employer] 08-17-2014 13:56-0500 Body mass index (BMI) [Ratio] 36.95 kg/m2 Alisonallison Rendoner PA-C Work Phone: [employer].; [employer] 08-17-2014 13:56-0500 Body surface area Derived from formula 1.92 m2 Alison Yost Alexander PA-C Work Phone: [employer].; [employer]. 08-17-2014 13:56-0500 Body weight 91.63 kg Alison Yost Alexander PA-C Work Phone: [employer].; [employer]. 08-17-2014 13:56-0500 Diastolic blood pressure 75 mm[Hg] Alison J Alexander PA-C Work Phone: [facility].; [employer] [facility] [employer] [facility]. 08-17-2014 13:56-0500 Heart rate 75 /min Alison Alexander PA-C Work Phone: [facility].; [employer] 08-17-2014 13:56-0500 Systolic blood pressure 116 mm[Hg] Alison Alexander PA-C Work Phone: [facility].; [employer] 08-01-2014 08:10-0400 Body height 160.02 cm Mariola Zuniga LPN [facility] [employer] [facility], Inc.; [employer]. 08-01-2014 08:10-0400 Body mass index (BMI) [Ratio] 36.19 kg/m2 Mariola Zuniga LPN [facility] Hospital[facility] Inc.; [employer] [place] [employer] [facility] Hospital[facility] Inc. 08-01-2014 08:10-0400 Body surface area Derived from formula 1.95 m2 Mariola Zuniga LPN [facility] Hospital[facility] Inc.; [employer]. 08-01-2014 08:10-0400 Body temperature 99.3 [degF] Mariola Zuniga LPN [facility], Inc.; [employer] 08-01-2014 08:10-0400 Body weight 92.68 kg Mariola Zuniga LPN [facility] [employer] [facility], Inc.; [employer] 08-01-2014 08:10-0400 Diastolic blood pressure 74 mm[Hg] Mariola Zuniga LPN [employer] [facility] [employer] [facility] HospitalLive[facility] Inc.; [employer]. 08-01-2014 08:10-0400 Heart rate 98 /min Mariola Zuniga LPN [facility] [employer] [facility], Inc.; [employer] 08-01-2014 08:10-0400 Inhaled oxygen concentration 21 % Mariola Zuniga LPN [employer] [facility] [employer] [facility] HospitalLive[facility] Inc.; [employer]. 08-01-2014 08:10-0400 SaO2% (BldA) [Mass fraction] 99 % Mariola Zuniga LPN [employer].; [employer]. 08-01-2014 08:10-0400 Systolic blood pressure 125 mm[Hg] Mariola Zuniga LPN [employer].; [employer]. 04-04-2014 15:10-0400 Body height 160.02 cm Mckenna Limon RN [employer].; [employer]. 04-04-2014 15:10-0400 Body mass index (BMI) [Ratio] 34.61 kg/m2 Mckenna Limon RN [employer].; [employer]. 04-04-2014 15:100400 Body surface area Derived from formula 1.91 m2 Mckenna Limon RN [employer].; [employer]. 04-04-2014 15:100400 Body temperature 98.6 [degF] Mckenna Limon RN [employer].; [employer]. 04-04-2014 15:10-0400 Body weight 88.63 kg Mckenna Limon RN [employer].; [employer]. 04-04-2014 15:10-0400 Diastolic blood pressure 70 mm[Hg] Mckenna Limon RN [employer].; [employer]. 04-04-2014 15:10-0400 Heart rate 72 /min Mckenna Limon RN [employer].; [employer]. 04-04-2014 15:10-0400 Systolic blood pressure 120 mm[Hg] Mckenna Limon RN [employer].; [employer]. 02-12-2014 15:020400 Body weight 88 kg Christina Weinstein LPN [employer].; [employer]. 02-12-2014 15:020400 Diastolic blood pressure 72 mm[Hg] Christina Weinstein LPN [employer].; [employer]. 02-12-2014 15:02-0400 Heart rate 80 /min Christina Weinstein LPN [employer].; [employer] [facility]. 02-12-2014 15:02-0400 Systolic blood pressure 107 mm[Hg] Christina Weinstein LPN [facility] [employer] [facility], Inc.; [employer] 01-19-2014 13:31-0400 Body weight 87.09 kg Arlinwei Solomon Kavon RODRIGUEZ [employer].; [employer] 01-19-2014 13:31-0400 Diastolic blood pressure 64 mm[Hg] Neilee L Vess TELETYPE OR VARITYPE KEYBOARD OPERATOR [employer], [employer].; [employer] 01-19-2014 13:31-0400 Heart rate 85 /min Arlinilee L Vess TELETYPE OR VARITYPE KEYBOARD OPERATOR [employer].; [employer], [employer]. 01-19-2014 13:31-0400 Systolic blood pressure 110 mm[Hg] Bladimire L Vess MICHAEL [employer], [employer].; [employer] 11-03-2013 15:21-0500 Body height 160.02 cm Mariola Zuniga LPN [facility] [employer] [facility], Inc.; [employer], [employer]. 11-03-2013 15:21-0500 Body mass index (BMI) [Ratio] 33.66 kg/m2 Mariola Zuniga LPN [employer].; [employer] 11-03-2013 15:21-0500 Body surface area Derived from formula 1.89 m2 Mariola Zuniga LPN [employer].; [employer] 11-03-2013 15:21-0500 Body weight 86.18 kg Mariola Zuniga LPN [employer], Inc.; [employer], [employer] 11-03-2013 15:21-0500 Diastolic blood pressure 81 mm[Hg] Mariola Zuniga LPN [employer].; [employer] 11-03-2013 15:21-0500 Heart rate 80 /min Mariola Zuniga LPN [employer] [facility], Inc.; [employer]. 11-03-2013 15:21-0500 Systolic blood pressure 136 mm[Hg] Mariola Zuniga LPN [facility] [employer] [facility] HospitalLive[facility].; [employer] [facility]. 10-06-2013 14:45-0500 Body temperature 97.6 [degF] Neilee L Vess TELETYPE OR VARITYPE KEYBOARD OPERATOR [facility] [employer] [facility] HospitalLive[facility].; [facility] [employer] [facility]. 10-06-2013 14:45-0500 Body weight 88 kg Neilee L Vess TELETYPE OR VARITYPE KEYBOARD OPERATOR [facility] [employer] [facility].; [employer] [facility]. 10-06-2013 14:45-0500 Diastolic blood pressure 88 mm[Hg] Neilee L Vess TELETYPE OR VARITYPE KEYBOARD OPERATOR [employer] [facility].; [employer] [facility]. 10-06-2013 14:45-0500 Heart rate 85 /min Neilee L Vess TELETYPE OR VARITYPE KEYBOARD OPERATOR [employer] [facility].; [employer] [facility]. 10-06-2013 14:45-0500 Systolic blood pressure 132 mm[Hg] Neilee L Vess TELETYPE OR VARITYPE KEYBOARD OPERATOR [employer] [facility].; [employer]. 07-31-2013 14:56-0400 Body height 160.02 cm Isatu Bautista RN Work Phone: [facility] [employer] [facility].; [employer]. 07-31-2013 14:56-0400 Body mass index (BMI) [Ratio] 35.43 kg/m2 Isatu Bautista RN Work Phone: [employer].; [employer]. 07-31-2013 14:56-0400 Body surface area Derived from formula 1.93 m2 Isatu Bautista RN Work Phone: [employer].; [employer] [facility]. 07-31-2013 14:56-0400 Body temperature 99.1 [degF] Isatu Bautista RN Work Phone: [employer].; [employer]. 07-31-2013 14:56-0400 Body weight 90.72 kg Isatu Bautista RN Work Phone: [employer].; [employer]. 07-31-2013 14:56-0400 Diastolic blood pressure 91 mm[Hg] Isatu Bautista RN Work Phone: [employer] [facility], [facility].; [employer] [facility], [employer]. 07-31-2013 14:56-0400 Heart rate 83 /min Isatu Bautista RN Work Phone: [facility], [facility].; [facility] [employer] [facility], Inc. 07-31-2013 14:56-0400 Systolic blood pressure 139 mm[Hg] Isatu Bautista RN Work Phone: [facility], [facility].; [employer] 06-16-2013 13:28-0400 Body height 160.02 cm Mariola Zuniga LPN [facility], Inc.; [facility] [place] [employer] [facility], [employer]. 06-16-2013 13:28-0400 Body mass index (BMI) [Ratio] 34.96 kg/m2 Mariola Zuniga LPN [facility], Inc.; [employer] 06-16-2013 13:28-0400 Body surface area Derived from formula 1.92 m2 Mariola Zuniga LPN [facility] [employer] [facility], Inc.; [employer], [employer] 06-16-2013 13:28-0400 Body temperature 98.2 [degF] Mariola Zuniga LPN [facility] lorna [facility], Inc.; [employer] 06-16-2013 13:28-0400 Body weight 89.53 kg [facility] L[facility] [employer] [facility], Inc.; [employer], [employer]. 06-16-2013 13:28-0400 Diastolic blood pressure 74 mm[Hg] Mariola Zuniga LPN [facility] [employer] [facility], Inc.; [employer], [employer]. 06-16-2013 13:28-0400 Heart rate 73 /min Mariola Zuniga LPN [facility], Inc.; [employer] 06-16-2013 13:28-0400 Inhaled oxygen concentration 21 % Mariola Zuniga LPN [facility] [employer] [facility], Inc.; [employer], [employer] 06-16-2013 13:28-0400 SaO2% (BldA) [Mass fraction] 96 % Mariola Zuniga LPN [facility] [employer] [facility], Inc.; [employer] 06-16-2013 13:28-0400 Systolic blood pressure 121 mm[Hg] Mariola Zuniga [facility], Inc.; [employer] 06-15-2012 08:05-0400 Body height 160.02 cm Bianca Cobos [facility], Inc.; [employer], [employer] 06-15-2012 08:05-0400 Body mass index (BMI) [Ratio] 34.72 kg/m2 PaytonDot Cobos [facility], Inc.; [employer] 06-15-2012 08:05-0400 Body surface area Derived from formula 1.92 m2 [facility] Chandrika [facility] [employer] [facility], Inc.; [employer] 06-15-2012 08:05-0400 Body temperature 98.9 [degF] PaytonDot Cobos [facility], Inc.; [employer] 06-15-2012 08:05-0400 Body weight 88.91 kg Bianca Cobos [facility], Inc.; [employer] 06-15-2012 08:05-0400 Diastolic blood pressure 84 mm[Hg] Bianca Cobos [facility], Inc.; [employer] 06-15-2012 08:05-0400 Heart rate 87 /min Payton Stuckey [facility], Inc.; [employer] 06-15-2012 08:05-0400 Systolic blood pressure 133 mm[Hg] Bianca Cobos [facility], Inc.; [employer] 04-21-2012 12:48-0400 Body height 160.02 cm Isatu Bautista RN Work Phone: [employer] 04-21-2012 12:48-0400 Body mass index (BMI) [Ratio] 35.07 kg/m2 Isatu Bautista RN Work Phone: [employer].; [employer] 04-21-2012 12:48-0400 Body surface area Derived from formula 1.93 m2 Isatu Bautista RN Work Phone: [employer].; [employer] 04-21-2012 12:48-0400 Body weight 89.81 kg Isatu Bautista RN Work Phone: [employer].; [employer] 04-21-2012 12:48-0400 Diastolic blood pressure 89 mm[Hg] Isatu Bautista RN Work Phone: [employer].; [employer] 04-21-2012 12:48-0400 Heart rate 75 /min Isatu Bautista RN Work Phone: [employer].; [employer] 04-21-2012 12:48-0400 Systolic blood pressure 129 mm[Hg] Isatu Bautista RN Work Phone: [employer].; [employer] 10-08-2011 15:17-0500 Body weight 82.56 kg Neilee L Vess TELETYPE OR VARITYPE KEYBOARD OPERATOR [employer].; [employer] 10-08-2011 15:17-0500 Diastolic blood pressure 65 mm[Hg] Neilee L Vess TELETYPE OR VARITYPE KEYBOARD OPERATOR [employer].; [employer] 10-08-2011 15:17-0500 Heart rate 67 /min Neilee L Vess TELETYPE OR VARITYPE KEYBOARD OPERATOR [employer].; [employer] 10-08-2011 15:17-0500 Systolic blood pressure 100 mm[Hg] Neilee L Vess TELETYPE OR VARITYPE KEYBOARD OPERATOR [employer].; [employer], [employer]. 08-19-2011 13:24-0500 Body height 160.02 cm [facility] Work Phone: [employer].; [employer] 08-19-2011 13:24-0500 Body mass index (BMI) [Ratio] 29.76 kg/m2 [facility] Work Phone: [employer].; [employer]. 08-19-2011 13:24-0500 Body surface area Derived from formula 1.8 m2 Alyssa Stefan TELETYPE OR VARITYPE KEYBOARD OPERATOR Work Phone: [employer].; [employer] 08-19-2011 13:24-0500 Body temperature 97 [degF] Alyssa Stefan TELETYPE OR VARITYPE KEYBOARD OPERATOR Work Phone: [employer].; [employer] 08-19-2011 13:24-0500 Body weight 76.2 kg Alyssa Stefan TELETYPE OR VARITYPE KEYBOARD OPERATOR Work Phone: [employer].; [employer] 08-19-2011 13:24-0500 Diastolic blood pressure 70 mm[Hg] Alyssa Stefan TELETYPE OR VARITYPE KEYBOARD OPERATOR Work Phone: [employer].; [employer] 08-19-2011 13:24-0500 Heart rate 100 /min Alyssa Stefan TELETYPE OR VARITYPE KEYBOARD OPERATOR Work Phone: [employer].; [employer] 08-19-2011 13:24-0500 Systolic blood pressure 108 mm[Hg] Alyssa Stefan TELETYPE OR VARITYPE KEYBOARD OPERATOR Work Phone: [employer].; [employer] 07-29-2011 16:02-0400 Body weight 90.72 kg Alyssa Stefan TELETYPE OR VARITYPE KEYBOARD OPERATOR Work Phone: [employer].; [employer] 07-29-2011 16:02-0400 Diastolic blood pressure 77 mm[Hg] Alyssa Stefan TELETYPE OR VARITYPE KEYBOARD OPERATOR Work Phone: [employer].; [employer]. 07-29-2011 16:02-0400 Heart rate 88 /min Alyssa Stefan TELETYPE OR VARITYPE KEYBOARD OPERATOR Work Phone: [employer].; [employer]. 07-29-2011 16:02-0400 Systolic blood pressure 116 mm[Hg] Alyssa Stefan TELETYPE OR VARITYPE KEYBOARD OPERATOR Work Phone: [employer].; [employer]. 07-22-2011 13:29-0400 Body height 160.02 cm Alyssa Stefan TELETYPE OR VARITYPE KEYBOARD OPERATOR Work Phone: [employer].; [employer] 07-22-2011 13:29-0400 Body mass index (BMI) [Ratio] 35.43 kg/m2 Alyssa Stefan TELETYPE OR VARITYPE KEYBOARD OPERATOR Work Phone: [employer].; [employer] 07-22-2011 13:29-0400 Body surface area Derived from formula 1.93 m2 Alyssa Stefan TELETYPE OR VARITYPE KEYBOARD OPERATOR Work Phone: [employer].; [employer]. 07-22-2011 13:29-0400 Body weight 90.72 kg Alyssa Stefan TELETYPE OR VARITYPE KEYBOARD OPERATOR Work Phone: [employer].; [employer]. 07-22-2011 13:29-0400 Diastolic blood pressure 76 mm[Hg] Alyssa Stefan TELETYPE OR VARITYPE KEYBOARD OPERATOR Work Phone: [employer].; [employer]. 07-22-2011 13:29-0400 Heart rate 94 /min Alyssa Stefan TELETYPE OR VARITYPE KEYBOARD OPERATOR Work Phone: [employer].; [employer]. 07-22-2011 13:29-0400 Systolic blood pressure 131 mm[Hg] Alyssa Stefan TELETYPE OR VARITYPE KEYBOARD OPERATOR Work Phone: [employer].; [employer]. 07-15-2011 13:090400 Body height 160.02 cm Alyssa Stefan TELETYPE OR VARITYPE KEYBOARD OPERATOR Work Phone: [employer].; [employer]. 07-15-2011 13:09-0400 Body mass index (BMI) [Ratio] 34.72 kg/m2 Alyssa Stefan TELETYPE OR VARITYPE KEYBOARD OPERATOR Work Phone: [employer].; [employer]. 07-15-2011 13:09-0400 Body surface area Derived from formula 1.92 m2 Alyssa Stefan TELETYPE OR VARITYPE KEYBOARD OPERATOR Work Phone: [employer].; [employer] 07-15-2011 13:0400 Body weight 88.91 kg Alyssa Stefan TELETYPE OR VARITYPE KEYBOARD OPERATOR Work Phone: [employer].; [employer] 07-15-2011 13:0400 Diastolic blood pressure 69 mm[Hg] Alyssa Stefan TELETYPE OR VARITYPE KEYBOARD OPERATOR Work Phone: [employer].; [employer] 07-15-2011 13:09040 Heart rate 94 /min Alyssa Stefan TELETYPE OR VARITYPE KEYBOARD OPERATOR Work Phone: [employer].; [employer] 07-15-2011 13:090400 Systolic blood pressure 123 mm[Hg] Alyssa Stefan TELETYPE OR VARITYPE KEYBOARD OPERATOR Work Phone: [employer].; [employer] 07-01-2011 13:27-0400 Body height 160.02 cm Alyssa Stefan TELETYPE OR VARITYPE KEYBOARD OPERATOR Work Phone: [employer].; [employer] 07-01-2011 13:27-0400 Body mass index (BMI) [Ratio] 34.37 kg/m2 Alyssa Stefan TELETYPE OR VARITYPE KEYBOARD OPERATOR Work Phone: [employer].; [employer] 07-01-2011 13:27-0400 Body surface area Derived from formula 1.91 m2 Alyssa Stefan TELETYPE OR VARITYPE KEYBOARD OPERATOR Work Phone: [employer].; [employer] 07-01-2011 13:27-0400 Body weight 88 kg Alyssa Stefan TELETYPE OR VARITYPE KEYBOARD OPERATOR Work Phone: [employer].; [employer] 07-01-2011 13:27-0400 Diastolic blood pressure 71 mm[Hg] Alyssa Stefan TELETYPE OR VARITYPE KEYBOARD OPERATOR Work Phone: [employer].; [employer] 07-01-2011 13:27-0400 Heart rate 58 /min Alyssa Stefan TELETYPE OR VARITYPE KEYBOARD OPERATOR Work Phone: [employer].; [employer]. 07-01-2011 13:27-0400 Systolic blood pressure 114 mm[Hg] Alyssa Stefan TELETYPE OR VARITYPE KEYBOARD OPERATOR Work Phone: [employer].; [employer] 06-17-2011 14:39-0400 Body weight 88 kg Alyssa Stefan TELETYPE OR VARITYPE KEYBOARD OPERATOR Work Phone: [employer].; [employer] 06-17-2011 14:39-0400 Diastolic blood pressure 68 mm[Hg] Alyssa Stefan TELETYPE OR VARITYPE KEYBOARD OPERATOR Work Phone: [employer].; [employer] 06-17-2011 14:39-0400 Heart rate 111 /min Alyssa Stefan TELETYPE OR VARITYPE KEYBOARD OPERATOR Work Phone: [employer].; [employer] 06-17-2011 14:39-0400 Systolic blood pressure 117 mm[Hg] Alyssa Stefan TELETYPE OR VARITYPE KEYBOARD OPERATOR Work Phone: [employer].; [employer]. 05-25-2011 13:30-0400 Body weight 85.73 kg Alyssa Stefan TELETYPE OR VARITYPE KEYBOARD OPERATOR Work Phone: [employer].; [employer] 05-25-2011 13:30-0400 Diastolic blood pressure 71 mm[Hg] Alyssa Stefan TELETYPE OR VARITYPE KEYBOARD OPERATOR Work Phone: [employer].; [employer] 05-25-2011 13:30-0400 Heart rate 109 /min Alyssa Stefan TELETYPE OR VARITYPE KEYBOARD OPERATOR Work Phone: [employer].; [employer]. 05-25-2011 13:30-0400 Systolic blood pressure 126 mm[Hg] Alyssa Stefan TELETYPE OR VARITYPE KEYBOARD OPERATOR Work Phone: [employer].; [employer]. 04-27-2011 13:57-0400 Body weight 85.73 kg Neilee L Vess TELETYPE OR VARITYPE KEYBOARD OPERATOR [employer] [facility].; [employer]. 04-27-2011 13:57-0400 Diastolic blood pressure 74 mm[Hg] Neilee L Vess TELETYPE OR VARITYPE KEYBOARD OPERATOR [employer] [employer] [facility].; [employer] 04-27-2011 13:57-0400 Heart rate 97 /min Neilee L Vess TELETYPE OR VARITYPE KEYBOARD OPERATOR [employer] 04-27-2011 13:57-0400 Systolic blood pressure 128 mm[Hg] Neilee L Vess TELETYPE OR VARITYPE KEYBOARD OPERATOR [employer] 04-02-2011 08:14-0400 Body height 160.02 cm Mckenna Limon RN [employer] 04-02-2011 08:14-0400 Body mass index (BMI) [Ratio] 32.38 kg/m2 Mckenna Limon RN [employer] 04-02-2011 08:14-0400 Body surface area Derived from formula 1.86 m2 Mckenna Limon RN [employer] 04-02-2011 08:14-0400 Body temperature 97.3 [degF] Mckenna Limon RN [employer] 04-02-2011 08:14-0400 Body weight 82.92 kg Mckenna Limon RN [employer] 04-02-2011 08:14-0400 Diastolic blood pressure 68 mm[Hg] Mckenna Limon RN [employer] 04-02-2011 08:14-0400 Heart rate 99 /min Mckenna Limon RN [employer] 04-02-2011 08:14-0400 Systolic blood pressure 132 mm[Hg] Mckenna Limon RN [employer] 03-30-2011 14:23-0400 Body weight 84.37 kg Alyssa Stefan MICHAEL Work Phone: [employer] 03-30-2011 14:23-0400 Diastolic blood pressure 70 mm[Hg] Alyssa Stefan TELETYPE OR VARITYPE KEYBOARD OPERATOR Work Phone: [employer] 03-30-2011 14:23-0400 Heart rate 87 /min Alyssa Stefan TELETYPE OR VARITYPE KEYBOARD OPERATOR Work Phone: [employer] 03-30-2011 14:23-0400 Systolic blood pressure 113 mm[Hg] Alyssa Stefan TELETYPE OR VARITYPE KEYBOARD OPERATOR Work Phone: [employer] 03-02-2011 12:59-0400 Body weight 83.92 kg Alyssa Stefan TELETYPE OR VARITYPE KEYBOARD OPERATOR Work Phone: [employer] 03-02-2011 12:59-0400 Diastolic blood pressure 69 mm[Hg] Alyssa Stefan TELETYPE OR VARITYPE KEYBOARD OPERATOR Work Phone: [employer] 03-02-2011 12:59-0400 Heart rate 99 /min Alyssa Stefan TELETYPE OR VARITYPE KEYBOARD OPERATOR Work Phone: [employer] 03-02-2011 12:59-0400 Systolic blood pressure 120 mm[Hg] Alyssa Stefan TELETYPE OR VARITYPE KEYBOARD OPERATOR Work Phone: [employer] 01-26-2011 13:05-0400 Body weight 83.46 kg Alyssa Stefan TELETYPE OR VARITYPE KEYBOARD OPERATOR Work Phone: [employer] 01-26-2011 13:05-0400 Diastolic blood pressure 70 mm[Hg] Alyssa Stefan TELETYPE OR VARITYPE KEYBOARD OPERATOR Work Phone: [employer] 01-26-2011 13:05-0400 Heart rate 91 /min Alyssa Stefan TELETYPE OR VARITYPE KEYBOARD OPERATOR Work Phone: [employer] 01-26-2011 13:05-0400 Systolic blood pressure 111 mm[Hg] Alyssa Stefan TELETYPE OR VARITYPE KEYBOARD OPERATOR Work Phone: [employer] 12-29-2010 13:22-0400 Body height 160.02 cm Alyssa Stefan TELETYPE OR VARITYPE KEYBOARD OPERATOR Work Phone: [employer] 12-29-2010 13:22-0400 Body mass index (BMI) [Ratio] 32.95 kg/m2 Alyssa Stefan TELETYPE OR VARITYPE KEYBOARD OPERATOR Work Phone: [employer] 12-29-2010 13:22-0400 Body surface area Derived from formula 1.88 m2 Alyssa Stefan TELETYPE OR VARITYPE KEYBOARD OPERATOR Work Phone: [employer] 12-29-2010 13:22-0400 Body weight 84.37 kg Alyssa Stefan TELETYPE OR VARITYPE KEYBOARD OPERATOR Work Phone: [employer] 12-29-2010 13:22-0400 Diastolic blood pressure 81 mm[Hg] Alyssa Stefan TELETYPE OR VARITYPE KEYBOARD OPERATOR Work Phone: [employer] 12-29-2010 13:22-0400 Heart rate 106 /min Alyssa Stefan TELETYPE OR VARITYPE KEYBOARD OPERATOR Work Phone: [employer] 12-29-2010 13:22-0400 Systolic blood pressure 138 mm[Hg] Alyssa Stefan TELETYPE OR VARITYPE KEYBOARD OPERATOR Work Phone: [employer] 08-11-2010 14:14-0400 Body height 158.75 cm Isatu Bautista RN Work Phone: [employer] 08-11-2010 14:14-0400 Body mass index (BMI) [Ratio] 35.82 kg/m2 Isatu Bautista RN Work Phone: [employer] 08-11-2010 14:14-0400 Body surface area Derived from formula 1.92 m2 Isatu Bautista RN Work Phone: [employer] 08-11-2010 14:14-0400 Body weight 90.27 kg Isatu Bautista RN Work Phone: [employer] 08-11-2010 14:14-0400 Diastolic blood pressure 77 mm[Hg] Isatu Bautista RN Work Phone: [employer] 08-11-2010 14:14-0400 Heart rate 80 /min Isatu Bautista RN Work Phone: [employer] 08-11-2010 14:14-0400 Systolic blood pressure 123 mm[Hg] Isatu Bautista RN Work Phone: [employer] 07-10-2010 08:11-0400 Body temperature 98 [degF] Neilee L Vess TELETYPE OR VARITYPE KEYBOARD OPERATOR [employer] 07-10-2010 08:11-0400 Body weight 88.45 kg Neilee L Vess TELETYPE OR VARITYPE KEYBOARD OPERATOR [employer] 07-10-2010 08:11-0400 Diastolic blood pressure 74 mm[Hg] Neilee L Vess TELETYPE OR VARITYPE KEYBOARD OPERATOR [employer] 07-10-2010 08:11-0400 Heart rate 91 /min Neilee L Vess TELETYPE OR VARITYPE KEYBOARD OPERATOR [employer] 07-10-2010 08:11-0400 Systolic blood pressure 139 mm[Hg] Neilee L Vess TELETYPE OR VARITYPE KEYBOARD OPERATOR [employer] Encounters Encounter Date Encounter Type Care Provider Facility Start: 05-02-2025 End: 05-02-2025 Alison Alexander PA-C Work Phone: [employer]. Start: 04-25-2025 End: 04-25-2025 Alison Alexander PA-C Work Phone: [employer]. Start: 03-22-2025 End: 03-22-2025 Office outpatient visit 15 minutes Alison Alexander PA-C Work Phone: [employer]. Start: 03-22-2025 Alison Alexander PA-C Work Phone: [employer] Start: 09-14-2024 End: 09-14-2024 Office outpatient visit 15 minutes Alison Alexander PA-C Work Phone: [employer] Start: 06-23-2024 End: 06-23-2024 Office outpatient visit 15 minutes Alison Alexander PA-C Work Phone: [employer]. Start: 06-16-2024 End: 06-16-2024 Office outpatient visit 15 minutes Alison Alexander PA-C Work Phone: [employer]. Start: 06-16-2024 Alison Alexander PA-C Work Phone: [employer] Start: 06-02-2024 End: 06-02-2024 Alison Alexander PA-C Work Phone: [employer] Start: 05-24-2024 End: 05-24-2024 Patient encounter status Alison Alexander PA-C Work Phone: [employer]; [employer] Start: 05-24-2024 End: 05-24-2024 Periodic preventive med est patient 18-39 yrs Alison Alexander PA-C Work Phone: [employer]. Start: 07-13-2023 Encounter for gynecological examination (general) (routine) without abnormal findings [facility] Start: 06-18-2023 End: 06-18-2023 ambulatory [facility] Work Phone: Start: 06-18-2023 End: 06-18-2023 Patient encounter procedure [facility] general helper Off Start: 06-11-2023 End: 06-11-2023 ambulatory [facility] Start: 06-09-2023 End: 06-09-2023 Alison Alexander PA-C Work Phone: [employer] Start: 06-09-2023 End: 06-09-2023 ambulatory ALPINE Priyank [facility] Start: 06-03-2023 End: 06-03-2023 Alison Rendoner [facility]-C [facility] [employer] [facility] Start: 05-28-2023 End: 05-28-2023 Alison Alexander PA-C Work Phone: [employer] Start: 11-01-2022 End: 11-01-2022 ambulatory Yudith Najera COMMUNITY ORGANIZATION DIRECTOR Facility:[facility] Start: 10-28-2022 End: 10-30-2022 Evaluation and management of inpatient Shilpi Twain Facility:[facility] Start: 10-06-2022 End: 10-06-2022 Patient encounter procedure [facility] general helper Off Start: 10-06-2022 End: 10-06-2022 ambulatory [facility] Work Phone: Start: 09-22-2022 End: 09-22-2022 ambulatory [facility] Start: 09-16-2022 End: 09-16-2022 Office outpatient visit 25 minutes Alison Alexander PA-C Work Phone: [employer] Start: 08-21-2022 End: 08-21-2022 ambulatory [facility] Work Phone: Start: 08-21-2022 End: 08-21-2022 Patient encounter procedure [facility] general helper Off Start: 07-22-2022 End: 07-22-2022 ambulatory [facility] Work Phone: Start: 07-22-2022 End: 07-22-2022 Patient encounter procedure [facility] Spec[facility] Start: 06-14-2022 End: 06-15-2022 Emergency department patient visit JIM GRIJALVAER [facility] Start: 05-07-2022 End: 05-07-2022 Office outpatient visit 15 minutes Alison Alexander PA-C Work Phone: [employer] Start: 04-06-2022 End: 04-06-2022 Alison Alexander PA-C Work Phone: [employer] Start: 03-30-2022 End: 03-30-2022 Office outpatient visit 25 minutes Alison Alexander PA-C Work Phone: [employer] Start: 03-17-2022 End: 03-17-2022 Office outpatient visit 25 minutes Alison Alexander PA-C Work Phone: [employer] Start: 02-26-2022 End: 02-26-2022 Office outpatient visit 25 minutes Alison Alexander PA-C Work Phone: [employer] Start: 10-07-2021 End: 10-07-2021 Alison Alexander PA-C Work Phone: [employer] Start: 09-30-2021 End: 10-01-2021 Alison Alexander PA-C Work Phone: [employer] Start: 03-25-2021 End: 03-25-2021 Office outpatient visit 10 minutes Alison Alexander PA-C Work Phone: [employer] Start: 02-21-2021 End: 02-21-2021 Alison Alexander PA-C Work Phone: [employer] Start: 02-19-2021 End: 02-19-2021 Office outpatient visit 15 minutes Alison Alexander PA-C Work Phone: [employer] Start: 02-06-2021 End: 02-06-2021 Patient encounter status Alison Alexander PA-C Work Phone: [employer] Start: 02-06-2021 End: 02-06-2021 Alison Alexander PA-C Work Phone: [employer] Start: 02-03-2021 End: 02-03-2021 Alison Alexander PA-C Work Phone: [employer] Start: 12-12-2020 End: 12-12-2020 Alison Alexander PA-C Work Phone: [employer] Start: 09-20-2020 End: 09-22-2020 Alison Alexander PA-C Work Phone: [employer] Start: 09-16-2020 End: 09-16-2020 Alison Alexander PA-C Work Phone: [employer] Start: 08-22-2020 End: 08-22-2020 Office outpatient visit 15 minutes Alison Alexander PA-C Work Phone: [employer] Start: 08-09-2020 End: 08-09-2020 Office outpatient visit 15 minutes Alison Alexander PA-C Work Phone: [employer] Start: 05-30-2020 End: 05-30-2020 Office outpatient visit 15 minutes Alison Alexander PA-C Work Phone: [employer] Start: 05-27-2020 End: 05-27-2020 Alison Alexander PA-C Work Phone: [employer] Start: 05-10-2020 End: 05-10-2020 Alison Alexander PA-C Work Phone: [employer] Start: 05-06-2020 End: 05-06-2020 Office outpatient visit 15 minutes Alison Alexander PA-C Work Phone: [employer] Start: 04-23-2020 End: 04-23-2020 Alison Alexander PA-C Work Phone: [employer] Start: 04-22-2020 End: 04-22-2020 Alison Alexander PA-C Work Phone: [employer] Start: 04-17-2020 End: 04-17-2020 Alison Alexander PA-C Work Phone: [employer] Start: 04-08-2020 End: 04-08-2020 Office outpatient visit 15 minutes Alison Alexander PA-C Work Phone: [employer] Start: 10-18-2019 End: 10-18-2019 Office outpatient visit 15 minutes Alison Alexander PA-C Work Phone: [employer] Start: 09-04-2019 End: 09-04-2019 Office outpatient visit 15 minutes Alison Alexander PA-C Work Phone: [employer] Start: 07-04-2019 End: 07-04-2019 Alison Alexander PA-C Work Phone: [employer] Start: 05-05-2019 End: 05-05-2019 Alison Alexander PA-C Work Phone: [employer] Start: 05-04-2019 End: 05-04-2019 Office outpatient visit 15 minutes Aliosn Alexander PA-C Work Phone: [employer] Start: 04-07-2019 End: 04-07-2019 Alison Alexander PA-C Work Phone: [employer] Start: 04-05-2019 End: 04-05-2019 Alison Alexander PA-C Work Phone: [employer] Start: 04-03-2019 End: 04-03-2019 Office outpatient visit 15 minutes Alison Alexander PA-C Work Phone: [employer] Start: 02-20-2019 End: 02-20-2019 Office outpatient visit 15 minutes Alison Rendoner PA-C Work Phone: [employer] Start: 01-09-2019 End: 01-09-2019 Office outpatient visit 25 minutes Alison Rendoner PA-C Work Phone: [employer] Start: 12-26-2018 End: 12-26-2018 Office outpatient visit 15 minutes Alison Rendoner PA-C Work Phone: [employer] Start: 11-25-2018 End: 11-29-2018 Alison Rendoner PA-C Work Phone: [employer] Start: 11-18-2018 End: 11-18-2018 Alison Rendoner PA-C Work Phone: [employer] Start: 11-09-2018 End: 11-09-2018 Medical examinations/reports status Alison Rendoner PA-C Work Phone: [employer] Start: 11-09-2018 End: 11-09-2018 Periodic preventive med est patient 18-39 yrs Alison Rendoner PA-C Work Phone: [employer] Start: 09-13-2017 End: 09-13-2017 Patient encounter status Alison Alexander PA-C Work Phone: [employer] Start: 09-13-2017 End: 09-13-2017 Periodic preventive med est patient 18-39 yrs Alison Rendoner PA-C Work Phone: [employer] Start: 08-02-2017 End: 08-02-2017 Alison Rendoner PA-C Work Phone: [employer] Start: 06-09-2017 End: 06-09-2017 Office outpatient visit 15 minutes Alison Rendoner PA-C Work Phone: [employer] Start: 06-08-2017 End: 06-08-2017 Alison Alexander PA-C Work Phone: [employer] Start: 06-03-2017 End: 06-03-2017 Office outpatient visit 15 minutes Alison Alexander PA-C Work Phone: [employer]. Start: 03-18-2017 End: 03-18-2017 Alison Alexander PA-C Work Phone: [employer]. Start: 02-24-2017 End: 02-24-2017 Alison Alexander PA-C Work Phone: [employer] Start: 01-27-2017 End: 01-27-2017 Alison Alexander PA-C Work Phone: [employer] Start: 01-21-2017 End: 01-21-2017 Office outpatient visit 15 minutes Alison Alexander PA-C Work Phone: [employer] Start: 01-01-2017 End: 01-01-2017 Office outpatient visit 15 minutes Alison Alexander PA-C Work Phone: [employer] Start: 12-21-2016 End: 12-21-2016 Alison Alexander PA-C Work Phone: [employer]. Start: 12-18-2016 End: 12-25-2016 Alison Alexander PA-C Work Phone: [employer]. Start: 07-22-2016 End: 07-22-2016 Alison Alexander PA-C Work Phone: [employer] Start: 03-06-2016 End: 03-06-2016 Alison Alexander PA-C Work Phone: [employer]. Start: 02-27-2016 End: 02-27-2016 Patient encounter status Alison Alexander PA-C Work Phone: [employer] Start: 02-27-2016 End: 02-27-2016 Alison Alexander PA-C Work Phone: [employer]. Start: 02-13-2016 End: 02-13-2016 Alison Alexander PA-C Work Phone: [employer]. Start: 12-23-2015 End: 12-23-2015 Alison Alexander PA-C Work Phone: [employer]. Start: 02-13-2015 End: 02-13-2015 Alison Alexander PA-C Work Phone: [employer]. Start: 02-11-2015 End: 02-11-2015 Alison Alexander PA-C Work Phone: [employer]. Start: 01-21-2015 End: 01-22-2015 Alison Alexander PA-C Work Phone: [employer] Start: 12-21-2014 End: 12-21-2014 Alison Alexander PA-C Work Phone: [employer]. Start: 11-23-2014 End: 11-23-2014 Alison Alexander PA-C Work Phone: [employer]. Start: 08-22-2014 End: 08-22-2014 Alison Alexander PA-C Work Phone: [employer] Start: 08-17-2014 End: 08-17-2014 Patient encounter status Alison Alexander PA-C Work Phone: [employer] Start: 08-17-2014 End: 08-17-2014 Alison Alexander PA-C Work Phone: [employer]. Start: 08-01-2014 End: 08-01-2014 Alison Alexander PA-C Work Phone: [employer]. Start: 04-04-2014 End: 04-04-2014 Alison Alexander PA-C Work Phone: [employer]. Start: 02-12-2014 End: 02-12-2014 Alison Alexander PA-C Work Phone: [employer] Start: 01-19-2014 End: 01-19-2014 Alison Alexander PA-C Work Phone: [employer] Start: 11-03-2013 End: 11-03-2013 Alison Alexander PA-C Work Phone: [employer]. Start: 10-06-2013 End: 10-06-2013 Alison Alexander PA-C Work Phone: [employer]. Start: 07-31-2013 End: 07-31-2013 Alison Alexander PA-C Work Phone: [employer]. Start: 06-16-2013 End: 06-16-2013 Alison Alexander PA-C Work Phone: [employer]. Start: 06-15-2012 End: 06-15-2012 Alison Alexander PA-C Work Phone: [employer] Start: 04-21-2012 End: 04-21-2012 Alison Alexander PA-C Work Phone: [employer] Start: 10-08-2011 End: 10-08-2011 Alison Alexander PA-C Work Phone: [employer] Start: 08-19-2011 End: 08-19-2011 Alison Alexander PA-C Work Phone: [employer] Start: 08-06-2011 End: 08-06-2011 Alison Alexander PA-C Work Phone: [employer] Start: 07-29-2011 End: 07-29-2011 Alison Alexander PA-C Work Phone: [employer] Start: 07-22-2011 End: 07-22-2011 Alison Alexander PA-C Work Phone: [employer]. Start: 07-15-2011 End: 07-15-2011 Alison Alexander PA-C Work Phone: [employer]. Start: 07-01-2011 End: 07-01-2011 Alison Alexander PA-C Work Phone: [employer] Start: 06-17-2011 End: 06-17-2011 Alison Alexander PA-C Work Phone: [employer]. Start: 05-25-2011 End: 05-25-2011 Alison Alexander PA-C Work Phone: [employer]. Start: 04-27-2011 End: 04-27-2011 Alison Alexander PA-C Work Phone: [employer]. Start: 04-02-2011 End: 04-02-2011 Alison Alexander PA-C Work Phone: [employer] Start: 03-30-2011 End: 03-30-2011 Alison Alexander PA-C Work Phone: [employer]. Start: 03-02-2011 End: 03-02-2011 Alison Alexander PA-C Work Phone: [employer] Start: 01-26-2011 End: 01-26-2011 Alison Alexander PA-C Work Phone: [employer] Start: 12-29-2010 End: 12-29-2010 Alison Alexander PA-C Work Phone: [employer] Start: 08-11-2010 End: 08-11-2010 Patient encounter status Alison Alexander PA-C Work Phone: [employer] Start: 08-11-2010 End: 08-11-2010 Routine general medical examination at a health care facility Alison Alexander PA-C Work Phone: [employer] Start: 08-11-2010 End: 08-11-2010 Alison Benjamin UMAÑA-C Work Phone: [employer]. Start: 08-08-2010 End: 08-08-2010 Alisonallison Rendoner PA-C Work Phone: [employer] Start: 07-10-2010 End: 07-10-2010 Alison Rendoner PA-C Work Phone: [employer]. Start: 05-27-2010 End: 05-27-2010 Alisonallison Rendoner PA-C Work Phone: [employer] Medical examinations/reports status Carly Roth LPN [employer] [facility].; [employer]. Patient encounter status Carly Dukes [employer] [facility].; [employer]. Patient encounter status Alison UMAÑA-C Work Phone: [employer]. Patient encounter status Geeta UMAÑA-C Work Phone: [employer]. Routine general medi eugene examination at a [facility] facility Carly Roth LPN [employer]. Procedures Date Procedure Procedure Detail Performing Clinician Start: 05-02-2025 End: 05-02-2025 Removal sutures under anesthesia same surgeon Alison Alexander PA-C Work Phone: Start: 04-25-2025 End: 04-25-2025 Exc b9 lesion mrgn xcp sk tg s/n/h/f/g 0.5 cm/< Alison Alexander PA-C Work Phone: Start: 05-24-2024 End: 05-23-2024 Depression screening Geeta Lopez PA-C Work Phone: Start: 05-24-2024 End: 05-23-2024 Pos clin depres scrn f/u doc Geeta Lopez PA-C Work Phone: Start: 05-24-2024 End: 05-23-2024 Scr dep neg, no plan reqd Geeta Lopez PA-C Work Phone: Start: 06-09-2023 End: 06-11-2023 Diagnostic mammography computer-aided detcj bi Alison Alexander PA-C Work Phone: Start: 05-28-2023 End: 06-09-2023 Us breast uni real time with image limited Alison Alexander PA-C Work Phone: Start: 09-16-2022 End: 09-23-2022 TTE w or wo fol wcon,Doppler Alison Alexander PA-C Work Phone: Start: 06-14-2022 Urinalysis ALISON PATEL Comment on above: Result Comment: URIN ALYSIS Performed By: #### [id number] #### [facility],[address] [place] [address] Start: 03-30-2022 End: 03-30-2022 Ob care antepartum vag dlvr & Helena Castanon CNM Work Phone: Start: 03-30-2022 End: 03-31-2022 Us uterus 14 wk transabdl 10/11 gestat Helena Castanon CNM Work Phone: Start: 10-11-2021 End: 10-11-2021 Microscopic examination of cervical Papanicolaou smear Ayde Ahumada LPN Start: 02-06-2021 End: 02-06-2021 Depression screening Alison Hodges Work Phone: Start: 02-06-2021 End: 02-06-2021 Pos clin depres scrn f/u doc Alison Alexander PA-C Work Phone: Start: 04-22-2020 End: 04-22-2020 Ct limited/localized follow up study Alison Alexander PA-C Work Phone: Start: 04-08-2020 End: 04-08-2020 Dup-scan lxtr art/artl bpgs uni/lmtd study Alison Yost Alexander PA-C Work Phone: Start: 05-04-2019 End: 05-04-2019 Ayde Solomon PN Start: 12-26-2018 End: 12-26-2018 Tympanometry Nghia Ledesma MD Work Phone: Start: 11-25-2018 End: 11-25-2018 Removal sutures under anesthesia same surgeon Alison Yost Alexander PA-C Work Phone: Start: 11-18-2018 End: 09-15-2022 Exc b9 lesion mrgn xcp sk tg t/a/l 0.5 cm/< Alison Yost Alexander PA-C Work Phone: Start: 11-09-2018 End: 11-09-2018 Depression screening Alison Yost Alexander PA -C Work Phone: Start: 11-09-2018 End: 11-09-2018 Scr dep neg, no plan reqd Alison Yost Julieta er PA-C Work Phone: Start: 09-13-2017 End: 09-13-2017 Flu immunize order/admin Alison Rendone r PA-C Work Phone: Start: 09-13-2017 End: 09-13-2017 Most recent diastolic blood pressure < 80 mm hg Alison Yost Alexander PA-C Work Phone: Start: 09-13-2017 End: 09-13-2017 Most recent systolic blood pressure <130 mm hg Alison Yost Alexander PA-C Work Phone: Start: 09-13-2017 End: 09-13-2017 Body mass index documented Alison Yost Braxton angie PA-C Work Phone: Start: 06-08-2017 End: 06-10-2017 Chest x-ray Nghia Ledesma MD Work Phone: Start: 03-18-2017 End: 03-18-2017 Ayde Solomon PN Start: 02-18-2017 End: 02-18-2017 Screening colonoscopy Ayde Ahumada LPN Start: 01-27-2017 End: 01-27-2017 Lab findings surveillance Ayde galloway TELETYPE OR VARITYPE KEYBOARD OPERATOR Start: 01-21-2017 End: 01-27-2017 Ct abdomen & pelvis w/contrast material Alison Priyank Alexander PA-C Work Phone: Start: 12-18-2016 End: 05-19-2017 Ecg routine ecg w/least 12 lds i&r only Alison Priyank Alexander PA-C Work Phone: Start: 12-18-2016 End: 12-18-2016 Ayde Solomon PN Start: 12-14-2016 End: 12-14-2016 Ayde Ahumada L PN Start: 12-14-2016 End: 12-14-2016 Ayde Solomon PN Start: 03-06-2016 End: 03-06-2016 Bx skin subcutaneous&/mucous membrane 1 lesion Alisonallison Alexander PA-C Work Phone: Start: 01-19-2014 End: 01-19-2014 Exc b9 lesion mrgn xcp sk tg s/n/h/f/g 0.5 cm/< Dalia Montaño MD Work Phone: Start: 07-29-2011 End: 07-29-2011 Ob care antepartum vag dlvr & Alyssa Stefan TELETYPE OR VARITYPE KEYBOARD OPERATOR Work Phone: Start: 07-22-2011 End: 07-22-2011 Ob care antepartum vag dlvr & Alyssa Stefan TELETYPE OR VARITYPE KEYBOARD OPERATOR Work Phone: Start: 07-15-2011 End: 07-15-2011 Ob care antepartum vag dlvr & Alyssa Stefan TELETYPE OR VARITYPE KEYBOARD OPERATOR Work Phone: Start: 07-01-2011 End: 07-01-2011 Ob care antepartum vag dlvr & Alyssa Stefan TELETYPE OR VARITYPE KEYBOARD OPERATOR Work Phone: Start: 06-17-2011 End: 06-17-2011 Ob care antepartum vag dlvr & Alyssa Stefan TELETYPE OR VARITYPE KEYBOARD OPERATOR Work Phone: Start: 05-25-2011 End: 05-25-2011 Ob care antepartum vag dlvr & Alyssa Stefan TELETYPE OR VARITYPE KEYBOARD OPERATOR Work Phone: Start: 04-27-2011 End: 04-27-2011 Ob care antepartum vag dlvr & Juany Benito MD Work Phone: Start: 03-30-2011 End: 03-30-2011 Ob care antepartum vag dlvr & Alyssa Stefan TELETYPE OR VARITYPE KEYBOARD OPERATOR Work Phone: Start: 03-02-2011 End: 03-02-2011 Ob care antepartum vag dlvr & Alyssa Stefan TELETYPE OR VARITYPE KEYBOARD OPERATOR Work Phone: Start: 01-26-2011 End: 01-26-2011 Ob care antepartum vag dlvr & Alyssa Stefan TELETYPE OR VARITYPE KEYBOARD OPERATOR Work Phone: Start: 12-29-2010 End: 12-29-2010 Ob care antepartum vag dlvr & Alyssa Stefan TELETYPE OR VARITYPE KEYBOARD OPERATOR Work Phone: section Alison eisenberg PA-C Work Phone: section Nga george MA Group B Streptococcu s Culture Urine culture Plan of Treatment Date Care Activity Detail Author Start: 05-02-2025 [facility] [employer]. Start: 04-25-2025 [facility] [employer]. Start: 09-14-2024 Cul bact xcpt urine blood/stool aerobic isol [facility] [employer]. Start: 06-23-2024 Culture bacterial qu anttative colony count urine [facility] [employer]. Start: 06-16-2024 [facility] [employer]. Start: 05-24-2024 Comprehensive metabolic panel [facility] [employer]. Start: 05-24-2024 Lipid panel [facility] [employer].; [employer], [employer]. Start: 12-12-2020 End: 12-12-2020 Polysom 6/>yrs sleep 4/> addl dominik attnd [facility] [employer]. Immunizations Immunization Date Immunization Notes Care Provider Fa cility 10-29-2022 influenza, injectabl e, quadrivalent, preservative free [facility] 04-23-2021 Alison Alexander PA-C [facility] Phone: [facility]. 02-06-2021 TD(adult) unspecifie d formulation Alison Alexander PA-C Work Phone: [facility].; [facility] [employer] [facility] 09-04-2019 influenza, injectabl e, quadrivalent, contains preservative Alison Alexander PA-C Work Phone: [facility] [employer] [facility] 07-11-2017 influenza, injectabl e, quadrivalent, contains preservative Alison Alexander PA-C Work Phone: [employer] [facility].; [employer]. 08-11-2010 tetanus toxoid, redu daphne diphtheria toxoid, and acellular pertussis vaccine, adsorbed Alison Alexander PA-C Work Phone: [employer] [facility] [facility]. 12-26-1997 hepatitis B vaccine, pediatric or pediatric/adolescent dosage Alison Alexander PA-C Work Phone: [employer] [facility] [employer] [facility]. 07-27-1997 hepatitis B vaccine, pediatric or pediatric/adolescent dosage Alison Alexander PA-C Work Phone: [employer].; [employer] [facility]. 05-10-1997 hepatitis B vaccine, pediatric or pediatric/adolescent dosage Alison Alexander PA-C Work Phone: [employer].; [employer]. 05-10-1997 measles, mumps and rubella virus vaccine Alison Alexander PA-C Work Phone: [employer].; [facility] [employer] [facility]. 01-24-1990 diphtheria, tetanus toxoids and acellular pertussis vaccine Alison Alexander PA-C Work Phone: [employer].; [facility] 07-20-1986 poliovirus vaccine, inactivated Alison Alexander PA-C Work Phone: [facility].; [facility] 03-20-1986 diphtheria, tetanus toxoids and acellular pertussis vaccine Alison Alexander PA-C Work Phone: [facility].; [facility] 09-19-1985 measles, mumps and rubella virus vaccine Alison Alexander PA-C Work Phone: [facility] 1985 diphtheria, tetanus toxoids and acellular pertussis vaccine Alison Alexander PA-C Work Phone: [facility].; [facility] 1984 poliovirus vaccine, inactivated Alison Alexander PA-C Work Phone: [facility].; [facility] 1984 diphtheria, tetanus toxoids and acellular pertussis vaccine Alison Alexander PA-C Work Phone: [facility].; [facility] 1984 poliovirus vaccine, inactivated Alison Alexander PA-C Work Phone: [facility].; [facility] 1984 diphtheria, tetanus toxoids and acellular pertussis vaccine Alison Alexander PA-C Work Phone: [facility].; [facility] Work Phone: 1985 poliovirus vaccine, inactivated Alison Alexander PA-C Work Phone: [facility].; [facility] Payers Date Payer Category Payer Medicaid [id number] [id number] 2022 Self-pay [id number] 1985 Unknown [id number] [id number] 1984 Unknown [id number] 2.16.8 [id number] 1984 Unknown [id number] 2.16.84 [id number] 1984 Unknown [id number] 2.16.84 [id number] Unknown LJ [id number] [id number] Unknown [id number] 2.16.8 [id number] Unknown [id number] 2.16.8 [id number] Unknown [id number] 2.16.8 [id number] Unknown [id number] 2.16.8 [id number] Unknown [id number] 2.16.8 [id number] Unknown [id number] 2.16.8 [id number] Unknown Social History Date Type Detail Facility Start: 09-22-2021 End: 10-28-2022 Tobacco smoking status NHIS Unknown if ever smoked [facility] Start: 1985 Sex Assigned At Female [facility] End: 11-09-2018 [employer] Former smoker. [facility] [employer] [facility] Clinical Note 06-18-2023 Note Date & Type Note Facility 06-18-2023 Note [facility] Pap Smear Specimen Adequacy June 18, 2023 9:53am Comment . Satisfactory for evaluation. Endocervical and/or squamous metaplasticcells (endocervical component) are present. Comment on above: Satisfactory for maureen luation. Endocervical and/or squamous metaplasticcells (endocervical component) are present. Clinical Note 06-18-2023 Note Date & Type Note Facility 06-18-2023 Note [facility] Pap Smear QC Review June 18, 2023 9:53am Comment . Claudia Mckeon, Supervisory Family Assistant (ASCP) Comment on above: Claudia Mckeon, Supe rvisory Family Assistant (ASCP) Evaluation note Note Date & Type Note Facility Evaluation note No assessment information availa ble [facility] Work Phone: Summary Purpose Family History arthritis Status:Active Comments:Materna l Grandmother. Mother. Diabetes Mellitus Type II Status:Active Commen ts:Maternal Grandmother. great grandma Hyperlipidemia Status:Active Comments:Mother. Maternal Grandfather. Hypertension Status:Active Comments:Mother. Maternal Grandfather. Lung Cancer Status:Active Comments:grandpa thyroid disease-mom Status:Active arthritis Status:Active Comments:Materna l Grandmother. Mother. Diabetes Mellitus Type II Status:Active Commen ts:Maternal Grandmother. great grandma Hyperlipidemia Status:Active Comments:Mother. Maternal Grandfather. Hypertension Status:Active Comments:Mother. Maternal Grandfather. Lung Cancer Status:Active Comments:grandpa thyroid disease-mom Status:Active arthritis Status:Active Comments:Materna l Grandmother. Mother. Diabetes Mellitus Type II Status:Active Commen ts:Maternal Grandmother. great grandma Hyperlipidemia Status:Active Comments:Mother. Maternal Grandfather. Hypertension Status:Active Comments:Mother. Maternal Grandfather. Lung Cancer Status:Active Comments:grandpa thyroid disease-mom Status:Active arthritis Status:Active Comments:Materna l Grandmother. Mother. Diabetes Mellitus Type II Status:Active Commen ts:Maternal Grandmother. great grandma Hyperlipidemia Status:Active Comments:Mother. Maternal Grandfather. Hypertension Status:Active Comments:Mother. Maternal Grandfather. Lung Cancer Status:Active Comments:grandpa thyroid disease-mom Status:Active arthritis Status:Active Comments:Materna l Grandmother. Mother. Diabetes Mellitus Type II Status:Active Commen ts:Maternal Grandmother. great grandma Hyperlipidemia Status:Active Comments:Mother. Maternal Grandfather. Hypertension Status:Active Comments:Mother. Maternal Grandfather. Lung Cancer Status:Active Comments:grandpa thyroid disease-mom Status:Active arthritis Status:Active Comments:Materna l Grandmother. Mother. Diabetes Mellitus Type II Status:Active Commen ts:Maternal Grandmother. great grandma Hyperlipidemia Status:Active Comments:Mother. Maternal Grandfather. Hypertension Status:Active Comments:Mother. Maternal Grandfather. Lung Cancer Status:Active Comments:grandpa thyroid disease-mom Status:Active arthritis Status:Active Comments:Materna l Grandmother. Mother. Diabetes Mellitus Type II Status:Active Commen ts:Maternal Grandmother. great grandma Hyperlipidemia Status:Active Comments:Mother. Maternal Grandfather. Hypertension Status:Active Comments:Mother. Maternal Grandfather. Lung Cancer Status:Active Comments:grandpa thyroid disease-mom Status:Active arthritis Status:Active Comments:Materna l Grandmother. Mother. Diabetes Mellitus Type II Status:Active Commen ts:Maternal Grandmother. great grandma Hyperlipidemia Status:Active Comments:Mother. Maternal Grandfather. Hypertension Status:Active Comments:Mother. Maternal Grandfather. Lung Cancer Status:Active Comments:grandpa thyroid disease-mom Status:Active arthritis Status:Active Comments:Materna l Grandmother. Mother. Diabetes Mellitus Type II Status:Active Commen ts:Maternal Grandmother. great grandma Hyperlipidemia Status:Active Comments:Mother. Maternal Grandfather. Hypertension Status:Active Comments:Mother. Maternal Grandfather. Lung Cancer Status:Active Comments:grandpa thyroid disease-mom Status:Active arthritis Status:Active Comments:Materna l Grandmother. Mother. Diabetes Mellitus Type II Status:Active Commen ts:Maternal Grandmother. great grandma Hyperlipidemia Status:Active Comments:Mother. Maternal Grandfather. Hypertension Status:Active Comments:Mother. Maternal Grandfather. Lung Cancer Status:Active Comments:grandpa thyroid disease-mom Status:Active arthritis Status:Active Comments:Materna l Grandmother. Mother. Diabetes Mellitus Type II Status:Active Commen ts:Maternal Grandmother. great grandma Hyperlipidemia Status:Active Comments:Mother. Maternal Grandfather. Hypertension Status:Active Comments:Mother. Maternal Grandfather. Lung Cancer Status:Active Comments:grandpa thyroid disease-mom Status:Active arthritis Status:Active Comments:Materna l Grandmother. Mother. Diabetes Mellitus Type II Status:Active Commen ts:Maternal Grandmother. great grandma Hyperlipidemia Status:Active Comments:Mother. Maternal Grandfather. Hypertension Status:Active Comments:Mother. Maternal Grandfather. Lung Cancer Status:Active Comments:grandpa thyroid disease-mom Status:Active arthritis Status:Active Comments:Materna l Grandmother. Mother. Diabetes Mellitus Type II Status:Active Commen ts:Maternal Grandmother. great grandma Hyperlipidemia Status:Active Comments:Mother. Maternal Grandfather. Hypertension Status:Active Comments:Mother. Maternal Grandfather. Lung Cancer Status:Active Comments:grandpa thyroid disease-mom Status:Active arthritis Status:Active Comments:Materna l Grandmother. Mother. Diabetes Mellitus Type II Status:Active Commen ts:Maternal Grandmother. great grandma Hyperlipidemia Status:Active Comments:Mother. Maternal Grandfather. Hypertension Status:Active Comments:Mother. Maternal Grandfather. Lung Cancer Status:Active Comments:grandpa thyroid disease-mom Status:Active arthritis Status:Active Comments:Materna l Grandmother. Mother. Diabetes Mellitus Type II Status:Active Commen ts:Maternal Grandmother. great grandma Hyperlipidemia Status:Active Comments:Mother. Maternal Grandfather. Hypertension Status:Active Comments:Mother. Maternal Grandfather. Lung Cancer Status:Active Comments:grandpa thyroid disease-mom Status:Active arthritis Status:Active Comments:Materna l Grandmother. Mother. Diabetes Mellitus Type II Status:Active Commen ts:Maternal Grandmother. great grandma Hyperlipidemia Status:Active Comments:Mother. Maternal Grandfather. Hypertension Status:Active Comments:Mother. Maternal Grandfather. Lung Cancer Status:Active Comments:grandpa thyroid disease-mom Status:Active arthritis Status:Active Comments:Materna l Grandmother. Mother. Diabetes Mellitus Type II Status:Active Commen ts:Maternal Grandmother. great grandma Hyperlipidemia Status:Active Comments:Mother. Maternal Grandfather. Hypertension Status:Active Comments:Mother. Maternal Grandfather. Lung Cancer Status:Active Comments:grandpa thyroid disease-mom Status:Active arthritis Status:Active Comments:Materna l Grandmother. Mother. Diabetes Mellitus Type II Status:Active Commen ts:Maternal Grandmother. great grandma Hyperlipidemia Status:Active Comments:Mother. Maternal Grandfather. Hypertension Status:Active Comments:Mother. Maternal Grandfather. Lung Cancer Status:Active Comments:grandpa thyroid disease-mom Status:Active Advance Directives Advance Directive Response Recorded Date/ Time Living Will No October 28 4:25pm Power of Bread Jockey No October 28, 2022 4:25pm Additional Source Comments INFORMATION SOURCE (unrecogn ized section and content) DATE CREATED AUTHOR 07/01/2019 [facility] ([place]) DATE CREATED AUTHOR AUTHOR'S ORGANIZ ATION 09/12/2021 [facility] DATE CREATED AUTHOR AUTHOR'S ORGANIZ ATION 06/12/2023 [facility] DATE CREATED AUTHOR AUTHOR'S ORGANIZ ATION 07/17/2023 [facility] DATE CREATED AUTHOR AUTHOR'S ORGANIZ ATION 09/19/2024 [facility] Goals (unrecognized section and content) Goals may be documented in a n alternate sectionGoals may be documented in an alternate sectionGoals may be documented in an alternate sectionGoals may be documented in an alternate section Care Teams (unrecognized sec tion and content) Team Status: Active Member Role Status Dates CHASIDY Randall Family Provider Active CHASIDY Randall Primary Care Provider Active Team Status: Inactive Member Role Status Dates CHASIDY Randall Primary Care Provider Active Dr. Shilpi Bautista , DO Attending Provider Active FOR RECORDS PERTAINING TO PATIENTS WHO ARE OR HAVE BEEN ENROLLED IN A CHEMICAL DEPENDENCY/SUBSTANCEABUSE PROGRAM, SOME INFORMATION MAY BE OMITTED. This clinical summary was aggregated from multiple sources. Caution should be exercised in using it in the provision of clinical care. This summary normalizes information from multiple sources, and as a consequence, information in this document may materially change the coding, format and clinical context of patient data. In addition, data may be omitted in some cases. CLINICAL DECISIONS SHOULD BE BASED ON THE PRIMARY CLINICAL RECORDS. [facility]. provides no warranty or guarantee of the accuracy or completeness of information in this document.
[2025-07-13 06:22] LABS: Hematocrit 39.7 % (37-47); Hemoglobin 13.4 g/dL (12.0-15.0); Immature Granulocytes Count 0.040 X10^3/uL (0.0-0.0); Mean Corp Hgb Conc 33.8 g/dL (32-36); Mean Corpuscular Volume 84.1 fL (81-99); Mean Platelet Vol. 10.7 fl (6.2-12.0); NRBC Flagged by Analyzer 0 % (0-5); POSITIVE DIFFERENTIAL YES; Platelet Count 265 K/mm3 (150-450); RBC Distribution Width CV 13.4 % (11.6-14.6); RBC Distribution Width SD 41.2 fl (35.1-43.9); Red Blood Count 4.72 M/mm3 (4.2-5.4); White Blood Count 12.3 K/mm3 (4.4-11.0)
[2025-07-13 06:26] LABS: Color, Urine Yellow (Yellow); Glucose, Dipstick Normal (Normal); Ketone-Dipstick Negative (Negative); Leukocyte Esterase-Dipstick Negative /ul (Negative); Nitrite-Dipstick Negative (Negative); Occult Blood-Urine Negative /ul (Negative); Protein-Dipstick 30 mg/dl (Negative); Specific Gravity, Urine 1.015 (1.002-1.030); Urine Bilirubin Dipstick Negative (Negative)
[2025-07-13 06:27] LABS: Internal QC Validated? YES +Cl - CLEAR BKGD; Pregnancy, Serum, hCG Quali. NEGATIVE Negative; Record Kit Lot#, Serum Preg. 0000980607
[2025-07-13 06:43] LABS: Mucous, Urine RARE /hpf (<or=2+); Red Blood Cells-Urine 0-5 SEEN /hpf (0-5); Squamous Epithelial Cells - UA 0-5 SEEN /hpf (5-10)
[2025-07-13 06:52] LABS: Lipase 27 U/L (13-75); Magnesium 1.8 mg/dL (1.5-2.2)
[2025-07-13 06:53] LABS: AST(SGOT) 37 U/L (<=31); Alanine Aminotransfer ALT/SGPT 41 U/L (<=34); Albumin, Serum 4.1 g/dL (3.5-5.0); Alkaline Phosphatase 79 U/L (35-104); Anion Gap 15 (5-15); BUN 11 mg/dL (4-19); BUN/Creat Ratio 13.9 RATIO (10-20); Bilirubin, Direct < 0.08 mg/dL (0.00-0.30); Calcium,Total 9.3 mg/dL (7.6-11.0); Carbon Dioxide 18.9 mmol/L (21.0-32.0); Chloride 104 mmol/L (98-108); Estimated Creatinine Clearance 98.95 ml/min (50-250); Globulin 4.1 g/dL (2.2-4.2); Glucose 147 mg/dL (70-99); Potassium 4.1 mmol/L (3.3-5.1)
--- NOTE | 2025-07-13 07:08 | EDS_ITS ---
HPI History of Present Illness Chief Complaint: Abd Pain Informant: patient Narrative Narrative: Patient is a 40-year-old female with past medical history of hypertension and sarcoidosis. She states that beginning around 11 PM last night she started with bouts of nausea vomiting diarrhea. She denies any blood or discoloration to either. She denies any known sick contacts. She states has been no recent antibiotic use or travel outside the country. She states that she has not been able to keep any food or fluid down and secondary to this comes in for evaluation. [facility] Medical History (Updated 07/17/25 @ 05:[address] Landon Velez, DO) HTN (hypertension) Sarcoidosis Fatty liver Sleep apnea Dysuria Home Medications ?Medication ?Instructions ?Recorded ?Last Taken ?Type dicyclomine 20 mg tablet 20 mg PO 4X/DAY PRN Abdomina l 07/13/25 Unknown Rx pain/spasm #28 tabs ondansetron 4 mg disintegrating 4 mg PO TID PRN nausea and 07/13/25 Unknown Rx tablet vomiting #21 tabs sertraline 50 mg tablet 50 mg PO DAILY 07/13/25 Unkn own History Allergy/AdvReac Type Severity Reaction Status Date / Time egg Allergy Severe Other Verified 07/13/25 05:25 latex Allergy Mild Rash Verified 07/13/25 05:25 acetaminophen (From Vicodin) AdvReac Vomiting Verified 07/13/25 05:25 hydrocodone (From Vicodin) AdvReac Vomiting Verified 07/13/25 05:25 Surgical History Previous section Social History Smoking Status: Former smoker alcohol intake: never ROS ROS ED Constitutional Constitutional ED: Denies chills or fever(s) ENT ENT ED: Denies sore throat Cardiovascular Cardiovascular: Denies chest pain Respiratory/Chest Respiratory/Chest: Denies cough or dyspnea Gastrointestinal Gastrointestinal: Reports abdominal pain, diarrhea, nausea and vomiting Genitourinary Genitourinary ED: Denies dysuria Musculoskeletal Musculoskeletal: Reports myalgias; Denies back pain Integumentary Denies rash Neurologic Neurologic: Denies headache(s) Hematologic/Lymphatic Hematologic/Lymphatic: Denies easy bleeding or easy bruising EXAM Physical Exam Const Vital Signs: 07/13/25 05:23 Temperature 97.8 F Temperature Source Oral Pulse Rate 101 H Respiratory Rate 18 Blood Pressure 149/84 H Blood Pressure Mean 105 Pulse Ox 96 Positive well nourished, well developed and obese General Appearance ED: well developed; Negative for pallor Nutritional Appearance: obese HEENT Reports dry mucous membranes HEENT Narrative: Normocephalic atraumatic No tongue or lip swelling no oral lesions no airway edema or compromise; no secondary findings in the posterior pharynx to suggest infection Mucous membranes are mildly dry and tacky Mouth ED: Yes dry mucous membranes Mouth: dry mucous membranes Eyes PERRL and EOMs intact bilaterally General Eye ED: Negative for scleral icterus Neck supple Neck Narrative: No nuchal rigidity or meningeal signs Resp normal respiratory effort and clear to auscultation bilaterally Cardio regular rhythm Rate: tachycardic and other Other Details: Slightly tachycardic rate with regular rhythm Radial and carotid pulses are equal and symmetric GI non-distended and no masses GI Narrative: Abdomen is soft and nondistended with hyperactive bowel sounds. There is mild pain with palpation in the upper abdomen diffusely without voluntary guarding or rigidity. No pulsatile mass. No peritoneal signs. Auscultation: hyperactive bowel sounds Palpation: soft Back/Spine no CVA tenderness Extremity normal to inspection Neuro oriented x3, CN's II-XII intact bilaterally and no sensory deficits noted Sensorium / Orientation: alert Motor Exam: strength 5/5 throughout Psych Mood & Affect: anxious Skin no rashes or lesions noted and No skin turgor normal Skin Narrative: Skin turgor is slightly increased General Skin Exam: Negative for jaundice or pallor MDM MDM MDM Narrative Medical decision making narrative: Patient arrived to the ER mildly hypertensive but has a past medical history of this. She reports bouts of nausea vomiting diarrhea. History and exam is most consistent with viral stomach infection such as rotavirus or norovirus. She denies any recent travel outside the country or antibiotic use going against custard and difficile or E. coli infection. In order to assess for potentially pancreatitis or biliary colic as well as clinically significant electrolyte abnormality or acute kidney injury basic blood work was obtained. Labs revealed no clinically significant findings. Her white count slightly elevated at 12.3 but I felt that this was stress response as her abdomen is soft and nonsurgical. Therefore there is no need for a CT scan. Patient was given IV hydration and treatment with Zofran and had improvement of symptoms and no further bouts of vomiting. On reevaluation abdomen remains soft and nonsurgical. Therefore with improvement of vitals and symptoms and overall negative workup I do not feel there is need for further intervention and she is otherwise safe for discharge History & Record Review Discussion w/independent historian: Patient Lab Data Attestation: I reviewed the patient's lab results. Labs: Laboratory Results - last 24 hr 07/13/25 07/13/25 05:35 06:19 WBC 12.3 H RBC 4.72 Hgb 13.4 Hct 39.7 MCV 84.1 MCH 28.4 MCHC 33.8 RDW Std Deviation 41.2 RDW Coeff of Duc 13.4 Plt Count 265 MPV 10.7 Immature Gran % (Auto) 0.300 Neut % (Auto) 93.4 H Lymph % (Auto) 3.3 L [place] % (Auto) 2.6 Eos % (Auto) 0.2 Baso % (Auto) 0.2 Absolute Neuts (auto) 11.5 H Absolute Lymphs (auto) 0.41 L Nucleated RBC % 0 Sodium 139 Potassium 4.1 Chloride 104 Carbon Dioxide 18.9 L Anion Gap 15 BUN 11 Creatinine 0.78 Estim Creat Clear Calc 98.95 Est GFR (MDRD) Non-Af 98 BUN/Creatinine Ratio 13.9 Glucose 147 H Calcium 9.3 Magnesium 1.8 Total Bilirubin 0.30 Direct Bilirubin < 0.08 AST 37 H ALT 41 H Alkaline Phosphatase 79 Total Protein 8.2 Albumin 4.1 Globulin 4.1 Lipase 27 Serum , Qual NEGATIVE Urine Color Yellow Urine Clarity Sl. Cloudy Urine pH 8.0 Ur Specific [place] 1.015 Urine Protein 30 H Urine Glucose (UA) Normal Urine Ketones Negative Urine Occult Blood Negative Urine Nitrite Negative Urine Bilirubin Negative Urine Urobilinogen Normal Ur Leukocyte Esterase Negative Urine RBC 0-5 SEEN Urine WBC 0-5 SEEN Ur Squamous Epith Cells 0-5 SEEN Urine Bacteria RARE Urine Mucus RARE Discharge Plan Triage Chief Complaint: Abd Pain ED Provider: Landon Velez Dx/Rx/DC Orders Clinical Impression: Nausea vomiting and diarrhea, Dehydration, Hypertension Instructions: ED Dehydration (Adult), ED Gastroenteritis, Viral (Adult) Prescriptions: New ondansetron 4 mg tablet,disintegrating 4 mg PO TID PRN (Reason: nausea and vomiting) Qty: 21 0RF dicyclomine 20 mg tablet 20 mg PO 4X/DAY PRN (Reason: Abdominal pain/spasm) Qty: 28 0RF No Action sertraline 50 mg tablet 50 mg PO DAILY Primary Care Provider: Alison Alexander Referrals: Alison Alexander, CHASIDY [Primary Care Provider, Medical] Activity Restrictions/Additional Instructions: Your history and exam is most consistent with a viral stomach infection causing your symptoms. This will last anywhere from 24 hours to 7 days with the average being 3 days. Keep yourself well-hydrated and use the Zofran and Bentyl to help control symptoms. You may take Tylenol and/or Motrin for pain control as well. If you have persistent symptoms despite taking her medication or develop worsening abdominal pain or any further concerns please return to the ER for re peat evaluation Print Language: Stateless Disposition Disposition: Home, Self Care Discharge Date/Time: 07/13/25 07:24
[2025-07-13 07:15] VITALS: BP 135/66; PULSE 90; RESP 16; TEMP 36.6; O2SAT 98
[2025-07-13 07:23] VITALS: BP 128/84; PULSE 91; RESP 18; O2SAT 99
== END 2025-07-13 07:24 | disposition home or self-care (01) ==
PROVIDERS: Emergency Provider Emergency Medicine; PCP Physician Assistant; Visit Provider Emergency Medicine
DX: R11.2 Nausea with vomiting, unspecified (principal); R19.7 Diarrhea, unspecified; E86.0 Dehydration; E66.9 Obesity, unspecified; Z68.38 Body mass index [BMI] 38.0-38.9, adult; Z87.891 Personal history of nicotine dependence
CPT/HCPCS: 80048; 80076; 81001; 83690; 83735; 84703; 85025; 96361; 96374; 96375; 99285; A4216; J2405